=== PATIENT | female | born 1945 | race Caucasian/White ===

== ENCOUNTER 2021-12-14 11:07 | Outpatient (CLI) | payer MEDICARE, SELFPAY ==
--- NOTE | 2021-12-14 11:30 | CRLHL7_ITS ---
For Patients: As a result of the Century Cures Act, medical imaging exams and procedure reports are released immediately into your electronic medical record. You may view this report before your referring provider. If you have questions, please contact your health care provider. BILATERAL SCREENING MAMMOGRAM WITH COMPUTER-AIDED DETECTION AND TOMOSYNTHESIS TECHNIQUE: CC and MLO views were obtained. These mammographic images have been obtained using full-field digital technique. These mammographic images were interpreted with the benefit of computer-aided detection. Breast tomosynthesis was used in this interpretation. COMPARISON FILM: 11/14/20, 11/06/19, 10/15/18. FINDINGS: The breasts are heterogeneously dense, which may obscure small masses. IMPRESSION: There is no radiographic evidence for malignancy. ASSESSMENT: BI-RADS Category 1: Negative RECOMMENDATION: Routine screening mammogram in 1 year. A lay language report of this examination will be provided to the patient. TRENTON SRINIVASAN M.D. Diagnostic Radiologist [email or web address] Transcribed: 7:[address]/Dictated by: Trenton Srinivasan MD @ 12/14/2021 2:02:00 PM (Electronically Signed)
== END 2021-12-14 11:08 | disposition home or self-care (01) ==
LOC: MAMMO 11:08
PROVIDERS: PCP Internal Medicine; Visit Provider Internal Medicine
DX: Z12.31 Encounter for screening mammogram for malignant neoplasm of breast (principal)
CPT/HCPCS: 77063; 77067

== ENCOUNTER 2022-05-02 09:20 | Outpatient (CLI) | payer MEDICARE, SELFPAY | END 2022-05-02 09:21 | disposition home or self-care (01) | LOC: AMB 16:56 | PROVIDERS: PCP Internal Medicine; Visit Provider Family Medicine | DX: R53.1 Weakness (principal) | CPT/HCPCS: A0998 ==

== ENCOUNTER 2023-06-06 15:05 | Outpatient (CLI) | payer MEDICARE, SELFPAY ==
--- OUTSIDE RECORDS SUMMARY | 2023-06-06 15:14 | XMS_ITS | Clinical Summary ---
Author Name Unknown Organization [facility] Address [place], [place] [address] Care Team Providers Care Telemetry Monitor Name Role Phone Echo Burogs MD Primary Care Provider [phone]- [phone] Allergies No known active allergies Medications Medication Sig Dispensed Refills Start Date End Date Status alendronate (FOSAMAX) 70 mg tablet Take 1 tablet by mouth once a week in the morning. Take on empty stomach with full glass of water. Do not lie down for 1 hr. 0 10/12/2016 Active SUMAtriptan (IMITREX) 50 mg tablet Take 1 tablet by mouth 2 times daily if needed for Migraine. Give at minimum 2hrs apart. Max Dose: 200mg per 24hrs. 0 10/12/2016 Active aspirin (ECOTRIN) 81 mg enteric coated tablet Take 1 tablet by mouth once daily with a meal. 0 10/12/2016 Active multivitamin (MULTIPLE VITAMINS) tablet Take 1 tablet by mouth once daily. 0 10/12/2016 Active Social History Tobacco Use Types Packs/Day Years Used Date Smoking Tobacco: Never Assessed Sex and Gender Information Value Date Recorded Sex Assigned at Not on file Gender Identity Not on file Sexual Orientation Not on file Last Filed Vital Signs Vital Sign Reading Time Taken Comments Blood Pressure 121/75 10/12/2016 2:51 PM CDT Pulse 71 10/12/2016 2:51 PM CDT Temperature - - Respiratory Rate - - Oxygen Saturation 96% 10/12/2016 2:51 PM CDT Inhaled Oxygen Concentration - - Weight 74.1 kg (163 lb 6.4 oz) 10/12/2016 2:51 P M CDT Height - - Body Mass Index - - Plan of Treatment Health Maintenance Due Date Last Done Comments Tdap 1955 Depression screening for age 12+ 1956 BMI (ht and wt on same day) for age 18+ 1962 Hepatitis C screening for age 18-79 1962 Tetanus booster 1964 Zoster (shingles) series for age 50+ (1 of 2) 1994 DEXA/DXA scan for age 65+ 2009 Pneumococcal series for age 65+ (1 of 1 - PCV) 2009 COVID-19 vaccine series (3 - 2022-24 season) 2022 07/05/2020, 06/14/2020 Influenza for age 65+ 12/31/2022 Care Teams Telemetry Monitor Relationship Specialty Start Date End Date Echo Burgos MD [address] [place] [address] PCP - General Internal Medicine 09/30/17
== END 2023-06-06 15:06 | disposition home or self-care (01) ==
PROVIDERS: PCP Internal Medicine; Visit Provider Internal Medicine
DX: G31.84 Mild cognitive impairment of uncertain or unknown etiology (principal); Z13.228 Encounter for screening for other metabolic disorders; Z13.29 Encounter for screening for other suspected endocrine disorder; Z13.21 Encounter for screening for nutritional disorder
CPT/HCPCS: 80053; 82306; 82607; 84443

== ENCOUNTER 2023-07-06 12:12 | Outpatient (CLI) | payer MEDICARE, SELFPAY ==
--- NOTE | 2023-07-06 13:00 | MR_ITS ---
Patient: KP ESPINOZA Facility:?[facility] Patient ID:?[id number] Site Patient ID:?[id number]. Site :?[id number] Study:?MRI-Head W/O-07/06/2023 1:33:16 PM Ordering Physician:VIVIAN SIMENTAL Final Report: Indication: Mild cognitive impairment. Technique: Multiplanar, multisequence MRI of the brain was performed without intravenous contrast. Comparison: None relevant available. Findings: Moderate thinning of the corpus callosum. Partially empty sella morphology. Mild degenerative change visualized upper cervical spine. There are few foci of restricted diffusion identified within the right posterior frontal, parietal and temporal lobes, measuring up to 3 mm. The ventricles are proportionate to the cerebral sulci. The 4th ventricle appears midline. The basal cisterns appear patent. No abnormal extra-axial fluid collection identified. Moderate parenchymal volume loss. Moderate T2 FLAIR hyperintense foci within the subcortical and periventricular white matter, favored to represent chronic ischemic microvascular disease. There is no intracranial mass, abnormal mass-effect or midline shift identified. Major intracranial vascular flow voids appear grossly intact. Thinning of the ocular lenses. Impression: 1. Few small scattered foci of acute/subacute infarcts within the right posterior frontal, parietal and temporal lobes. 2. Moderate chronic ischemic microvascular disease. Dictated by Emmanuel Garcia MD @ 07/06/2023 4:18:00 PM Signed by:?Emmanuel Garcia MD @07/06/2023 4:18:00 PM (Electronic Signature)
== END 2023-07-06 12:13 | disposition home or self-care (01) ==
LOC: MRI 12:13
PROVIDERS: PCP Internal Medicine; Visit Provider Internal Medicine
DX: G31.84 Mild cognitive impairment of uncertain or unknown etiology (principal); I67.82 Cerebral ischemia
CPT/HCPCS: 70551

== ENCOUNTER 2023-07-21 10:48 | Outpatient (CLI) | payer MEDICARE, SELFPAY | END 2023-07-21 10:49 | disposition home or self-care (01) | LOC: NFLDREF 07-22 06:16 | PROVIDERS: PCP Internal Medicine; Referring Provider Internal Medicine; Visit Provider Nurse Practitioner Family | DX: N30.00 Acute cystitis without hematuria (principal); B96.1 Klebsiella pneumoniae [K. pneumoniae] as the cause of diseases classified elsewhere | CPT/HCPCS: 87086; 87186 ==

== ENCOUNTER 2023-08-23 13:45 | Outpatient (RCR) | payer MEDICARE, SELFPAY ==
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
--- NOTE | 2023-08-03 07:39 | PT.OPEX ---
PT [place] Outpatient Eval PT [facility] Outpatient Eval Start: 08/02/23 13:47 Freq: Status: Active Protocol: Document 08/02/23 13:47 AMS (Rec: 08/02/23 17:03 AMS [id number]) E-signed By Siri Arreola PT Physical Therapy Outpatient Evaluation Insurance Information Recert Due Date 10/26/23 Insurance Name Medicare B Medical Diagnosis Gait imbalance Treating Diagnosis Unsteadiness on feet Muscle weakness Difficulty in walking Gait imbalance Referring MD Echo Burgos Subjective Subjective Samreen Hernandez is a 78-year-old female who presents to outpatient physical therapy for evaluation in setting of gait imbalance. She presents with her daughter, Jose. She states her gait/balance has been gradually getting worse over the last few years. Some days, she feels really good and doesn't use any AD (wall surfs in her home). Some days, she feels more unsteady and uses 2WW or cane. She states she has signed up for a year- long personal training at the [facility] to improve her physical fitness. Functional mobility/Activities of Daily Living: Modified independent with all mobility. Min A with some IADLs (has cleaning person come 1x/week). Does laundry/other IADLs on her own (daughter checks in). Equipment used: Mostly uses her SEC for all mobility, uses 2WW intermittently (1x/day when she needs to carry objects). Furniture/wall surfs at home and will sometimes use no AD in the house. Home Setup: [facility]. Able to live on the main level. Has grab bars in the shower and shower chair (doesn't like to use this). Has 1 flight of stairs to basement with two railings. Doesn't have to go down here much, but would like to be able to. Takes the stairs one at a time. Receives help from: Daughter, lives close by, comes by 2x/ week. Falls: None in last 12 months Concerned about balance: No. Afraid of falling: No. Daughter: depends on the day Exercise/Activity Level: Walks back and forth in the house with daily activities - no formal exercise. She just joined the [facility] personal training program; isn 't sure when this starts. Pain: None Previous Treatments: None. Had physical therapy 1-5 years ago; isn't sure for what. She is currently doing OT for mild cognitive impairment. Goals: to walk better Pain Comments 5/10 at worst in both knees - standing longer periods 0/10 at rest Current Work Status Retired Occupation Retired Preferred Name Samreen Precautions Treatment Precautions/Contraindications Osteoporosis, osteoarthritis of both knees, mitral regurgitation, mild cognitive impairment Therapy Limitations/Systems Review Cognition Objective Other/Pertinent Objective Vitals: Not formally assessed as not indicated. Mental status: Awake and alert but did not formally assess orientation. Able to follow two-step commands. Cranial nerves: Did not formally assess but appears globally intact based on visual observation. Posture: Mildly increased forward flexion/thoracic kyphosis. Improved with 2WW. Gait/Stair: Ambulates with use of SEC in left hand with step -through pattern. Decreased kishan, decreased foot clearance bilaterally, decreased stance time on R LE, moderate postural sway/ lateral deviations. Intermittent use of stratton for balance. Stair: step-to pattern ascent and descent with 2 railings Transfers: Independent. Requires several attempts to rise from standard height chair due to poor anterior weight shift. Balance: Narrow stance: 30 sec Tandem stance: 3 sec R, 6 sec L Single leg balance: unable Range of Motion: Appears grossly within normal limits for upper and lower extremities. Strength: Upper extremities: Shoulder flexion: R 4/5 L 4/5 Shoulder abduction: R 4/5 L 4/ 5 Elbow flexion: R 4/5 L 4/5 Elbow extension: R 4/5 L 4/5 Flying I Instructor strength: decreased bilaterally Lower extremities: Hip flexion: R 4-/5 L 4/5 Knee extension: R 4+/5 L 4+/5 Knee flexion: R 4/5 L 4-/5 Ankle dorsiflexion: R 5/5 L 5/ 5 Sensory: Did not formally assess. Functional Test Performed & Score 30 sec STS: 5 reps (age- matched norm: 13 reps) 5x STS: 29.5 sec TUG with SEC: 15.5 sec. With 2WW: 22 sec. (>13 sec = increased fall risk) Gait speed: 0.6 m/s (less than 0.8 m/s = increased fall risk) Assessment Assessment/Impression Pt is a 78 -year-old female? who presents with concerns of gait imbalance for balance assessment and fall prevention training. PMHx significant for osteoporosis, bilateral knee osteoarthritis, mitral regurgitation, and mild cognitive impairment ( attending occupational therapy ). Pt lives alone and utilizes SEC most of the time with mobility, although will also wall surf and go without AD in the home; also sometimes uses 2WW. No recent falls.?On exam, patient also demonstrates notable objective findings including range of motion within normal limits for upper and lower extremities, impaired static and dynamic balance, impaired/ unsteady gait, and significantly decreased functional upper and lower extremity strength, leading to difficulties with walking in a straight line, getting out of low chairs, walking longer distances, picking up objects from the floor, turning efficiently, and moving around the home safely. Decreased foot clearance noted bilaterally with shuffling gait as well as lateral deviations with ambulation. Pt 's gait speed, 30 sec STS, and TUG results all place her at an increased risk for falls. Significantly improved upright posture, foot clearance, safety, and ability to ambulate in a straight path with use of 2WW versus SEC, although no improvement in kishan. Recommended patient utilize for all mobility to decrease fall risk. Patient is appropriate for skilled physical therapy services to address the above deficits.?Pt was agreeable with plan of care and goals established. Primary Functional Limitations walking in a straight line, getting out of low chairs, walking longer distances, picking up objects from the floor, turning efficiently, and moving around the home safely Plan of Care Rehabilitation Potential Good Physical Therapy Goals Patient will be modified independent with HEP and self- management of symptoms with reminders from daughter. Patient will improve TUG score from 15.5 seconds to 12 or less to demonstrate clinically significant improvements in balance/stability. Patient will improve 5x STS from 29.5 sec to 20 sec or less (MDC 4 seconds) to demonstrate improvement in LE functional strength. Patient will improve ABC Confidence Scale by 20% for meaningful improvement in patient-perceived balance. Coordination/Communication With Referral Source Treatment Plan/Direct Interventions Gait Training,Joint Mobilization,Neuromuscular Re- ed,Self-Care/Home Management, Therapeutic Activities, Therapeutic Exercises Frequency/Duration 1x/week for 10-12 sessions Patient Will Be Discharged From Therapy Completion of LTG(s), Independent w/HEP, Independently Progressing Evaluation Billing Untimed Code Treatment Minutes 25 Complexity Low Certification Information Initial Certification Date 08/02/23 Ending Certification Date 10/26/23 Provider Signature Shows Agreement With POC & Medical Necessity Physician Signature & Date Requested Please Sign/Date Here Physician Comment/Change : Physician NPI Number #
== END 2023-09-28 16:17 | disposition home or self-care (01) ==
PROVIDERS: PCP Internal Medicine; Visit Provider Internal Medicine
DX: G31.84 Mild cognitive impairment of uncertain or unknown etiology (principal); R26.9 Unspecified abnormalities of gait and mobility; Z51.89 Encounter for other specified aftercare
CPT/HCPCS: 97110; 97112; 97116; 97161; 97165; 97535

== ENCOUNTER 2023-08-31 13:31 | Outpatient (CLI) | payer MEDICARE, SELFPAY ==
--- OUTSIDE RECORDS SUMMARY | 2023-09-02 05:45 | XMS_ITS | Clinical Summary ---
Author Name Unknown Organization [facility] Address [place], [place] [address] Care Team Providers Care Hatchery Laborer Name Role Phone Echo Burgos MD Primary Care Provider +1- [phone] Allergies No known active allergies Medications Medication [...] 2022 07/05/2020, 06/14/2020 Influenza for age 65+ 01/01/2024 Care Teams Hatchery Laborer Relationship Specialty Start Date End Date Echo Burgos MD [address] [place] [address] PCP - General Internal Medicine 09/30/17
--- OUTSIDE RECORDS SUMMARY | 2023-09-02 05:45 | XMS_ITS | Data Portability ---
Author Name Unknown Address [address] [place] [address] Phone [phone] Organization [place] [facility], [employer] Address [address] [place] [address] Assessment Encounter Date Assessment Date Assessment LastModified by Organization Details LastModified Time 06/08/2022 06/08/2022 We discussed foot care for pronation and hallux valgus b/l. Pt. wished to proceed with discussion of orthotics and Subiomed for knees before considering surgical treatment. Not available 07/02/2022 18:45:37 06/30/2022 06/30/2022 We discussed foot care for pronation and hallux valgus b/l. Pt. wished to proceed with discussion of Subiomed for knees before she considers knee surgery. Will follow to evaluate orthoic progress and trial subiomed next visit. [email or web address] Not available 08/04/2022 20:56:24 07/28/2022 07/28/2022 We discussed foot care for pronation and hallux valgus b/l. Pt. wished to proceed with orthotics for knees before considering surgical treatment. [email or web address] Not available 07/28/2022 16:30:25 Plan of Treatment Reminders Order Date Submit Date Provider Last Modified By Organization Details Last Modified Time Details Appointments None record ed. Lab None record ed. Referral None record ed. Procedures None record ed. Surgeries None record ed. Imaging None record ed. Medication Orders None record ed. Patient TargetsNo targets recorded. Patient InstructionsNo instructions recorded. Reason for Referral None Reported. Problems Name Status Onset Date Resolution Date Notes Provider Name and Address Organization Details Recorded Time Hammer toe Active 02/01/20 20 Hammer toe; Original Code: 317234306 Original Codesystem : SNOMED CT Classif ication: Medical Co nfirmation Status: Confirmed Not Available [facility] 07/06/2022 09:06:25 Callosity Active 02/01/20 20 Callosity; Original Code: 950327486 Original Codesystem : SNOMED CT Classif ication: Medical Co nfirmation Status: Confirmed Not Available [facility] 07/06/2022 09:06:25 Pain of knee region Active 03/17/20 21 Pain of knee region; Original Code: 1681787780 Original Codesystem : SNOMED CT Classif ication: Medical Co nfirmation Status: Confirmed Not Available [facility] 07/06/2022 09:06:25 Acquired hallux valgus Active 02/01/20 20 Acquired hallux valgus; Original Code: 356275834 Original Codesystem : SNOMED CT Classif ication: Medical Co nfirmation Status: Confirmed Acquired hallux valgus; Original Code: 022591150 Original Codesystem : SNOMED CT Classif ication: Medical Co nfirmation Status: Confirmed ; Start Date : 01/08/2020 Not Available [facility] 07/06/2022 09:06:25 Problem Notes None recorded. Medical Equipment None Reported. Allergies No known drug allergies Medications Name Sig Start Date Stop Date Status Note LastModified by Organization Details LastModified Time alendronate 70 mg tablet TAKE 1 TABLET BY MOUTH EVERY WEEK active Not Available Not Available No t Available sumatriptan 50 mg tablet TAKE 1 TABLET BY MOUTH DAILY NEEDED active Not Available Not Available No t Available Vitals Date Recorded Body height Body mass index (BMI) Body weight Provider Name and Address Organization Details Last Updated DateTime 06/08/2022 167.64 cm 25.8 kg/m2 90641.78 g [facility] 06/08/2022 15:08:56 Social History None recorded. Functional Status None recorded. Mental Status None recorded. Family History Nothing Reported. Medical History No medical history recorded. Gynecological HistoryNo gynecological history recorded. Obstetrics History GPAL:G 0 P 0 0 0 0 Past Encounters Encounter ID Performer Location Encounter Start Date Encounter Closed Date Diagnosis/Indication Diagnosis SNOMED-CT Code [id number] Cody Grimaldo DPM [place] Office [address] [place] [id number] 06/08/2022 15:06:04 06/09/2022 10:20:26 Pain in left foot 31742653328535 7 Pain in right foot 73098 258791648 7 Hallux rhoda alphonso AND bunion 247760791 Hammer toe 184353642 Pain of ri ght knee joint 97798747558520 0 Pain of le ft knee joint 43125139320150 7 [id number] LA[address] Jose [facility] Office [address] [place] [address] 07/16/2022 10:04:03 08/05/2022 10:05:00 Pain in left foot 93178619107225 7 Pain in right foot 60173 516387020 7 Hallux rhoda alphonso AND bunion 507967869 Hammer toe 114860458 Pain of ri ght knee joint 04158411054735 0 Pain of le ft knee joint 51750855550681 7 [id number] LA[address] Jose Main Office [address] [place] [address] 07/28/2022 15:14:36 07/28/2022 16:43:29 Pain in left foot 76715256673265 7 Pain in right foot 37316 264699771 7 Hallux rhoda alphonso AND bunion 273437887 Hammer toe 228401750 Pain of ri ght knee joint 71151820179263 0 Pain of le ft knee joint 44439345113858 7 Health Concerns Section Related Observation LastModified by Organization Detai ls LastModified Time None Recorded Concern Status LastModified by Organization Details LastModified Time None Recorded Advance Directives Directive None Recorded Payers Encounter Date Sequence Insurance Name Policy Number Policy [place] Covered Member ID [place] Member ID Guarantor Name 07/28/2022 1 [employer] - CHOICE (POS II) [id number] Samreen Hernandez [id number] Samreen Hernandez 06/30/2022 1 [employer] - CHOICE (POS II) [id number] Samreen Hernandez [id number] 2 Samreen Hernandez 06/30/2022 1 [place] [employer] [employer] Samreen Hernandez [id number] Samreen Hernandez 06/08/2022 1 [employer] - CHOICE (POS II) [id number] Samreen Hernandez [id number] Samreen Hernandez Notes Date Note Type Note Provider Name and Address Organization Details Recorded Time 06/08/2022 text/html HPI Notes: Increasing pain in shoes with activity related to bunions . Prior shoe changes and conservative care. Has used orthotics for some time. Cody Grimaldo DPM [address] [place], [address], [facility] 07/02/2022 18:46:14 06/30/2022 text/html HPI Notes: Increasing pain in shoes with activity related to bunions . Prior shoe changes and conservative care. Orthotic modifications have failed to significantly im prove symptoms. Continued knee pain b/l. Cody Grimaldo DPM [address] [place], [address], [facility] 08/04/2022 20:56:39 07/28/2022 text/html HPI Notes: Increasing pain in shoes with activity related to bunions . Prior shoe changes and conservative care. Has used orthotics for some time. Cody Grimaldo DPM [address] [place], [address], [facility] 07/28/2022 16:32:09 OBGyn Episode No OBEpisode recorded.
== END 2023-08-31 13:32 | disposition home or self-care (01) ==
LOC: NFLDREF 09-02 05:44
PROVIDERS: PCP Internal Medicine; Referring Provider Internal Medicine; Visit Provider Internal Medicine
DX: M85.80 Other specified disorders of bone density and structure, unspecified site (principal); E53.8 Deficiency of other specified B group vitamins; I67.9 Cerebrovascular disease, unspecified; Z13.220 Encounter for screening for lipoid disorders
CPT/HCPCS: 80061; 82306; 82607

== ENCOUNTER 2023-09-06 16:47 | Outpatient (CLI) | payer MEDICARE, SELFPAY ==
--- OUTSIDE RECORDS SUMMARY | 2023-09-08 07:45 | XMS_ITS | Clinical Summary ---
Author Name Unknown Organization [facility] Address [place], [place] [address] Care Team Providers Care Cyber Systems Operations Specialist Name Role Phone Echo Burgos MD Primary Care Provider [phone] Allergies No known active allergies Medications Medication [...] by mouth once daily. 0 10/12/2016 Active Encounters Date Type Department Care Team Description 09/07/2023 11:00 AM CDT Ancillary Procedure [facility] [address] [place] [address] Arrived 09/07/2023 Travel from Last 3 Months Social History Tobacco Use Types Packs/Day Years [...] PCV) 2009 COVID-19 vaccine series (3 - 2022- season) 2022 07/05/2020, 06/14/2020 Influenza for age 65+ 01/01/2024 Procedures Procedure Name Priority Date/Time Associated Diagnosis Comments ECHO TTE COMPLETE WO CONTRAST Routine 09/07/2023 11:44 AM CDT NSTEMI (non-ST elevated myocardial infarction) (HC) from Last 3 Months Results * ECHO TTE COMPLETE WO CONTRAST (09/07/2023 11:44 AM CDT) AORTIC VALVE MEAN PG 9 mmHg EJECTION FRACTION 56 % PEAK TR VELOCITY 2.6 m/s LVEDD 3.9 cm EJECTION FRACTION 55 - 60% Anatomical Region Laterality Modality Ultrasound 09/07/2023 11:0 4 AM CDT Narrative 09/07/2023 12:16 PM CDT ECHOCARDIOGRAM SAMREEN HERNANDEZ ?Accession#: ?? [id number] : ?1945 78 years Study Date: ?? 09/07/2023 11:04:06 AM Gender: F ? BP: ? 157/69 mmHg Height: 168.00 cm ? BSA: ?1.73 m? ? ? Weight: 64.00 kg ?Tech: ? MSR ?Referring MD: GREGG JUNIOR Site: ? [facility] Reading Location: Mobile [facility] Patient Location: Inpatient. Procedure: 2D, Color Doppler and Spectral Doppler. Indication for study: NSTEMI (non-ST elevated myocardial infarction) Cardiac Rhythm: Regular.Study quality: Final Impressions: 1. LVEF estimate 55-60%. Normal LV size and wall thickness. 2. Normal RV size and global systolic function. 3. No significant valvular abnormalities. 4. Normal PASP and RAP estimates. 5. Color Doppler suggests a possible PFO. Chamber Sizes and Function Left atrial size is normal. Right ventricular cavity size is normal, global systolic RV function is normal. The right atrium is normal. The pulmonary artery is of normal size and origin. The sinus of Valsalva is normal sized. The ascending aorta is normal sized. Valves, RV Pressures and Diastolic Function The aortic valve is trileaflet and sclerotic, no stenosis and no regurgitation. The mitral valve is normal in structure, no mitral regurgitation. Indeterminate pattern of LV diastolic filling. The tricuspid valve is normal in structure. Tricuspid regurgitation is mild regurgitation. The tricuspid regurgitant velocity is 2.6 m/s, the estimated right ventricular systolic pressure is 28 mmHg plus right atrial pressure. There is normal estimated pulmonary pressure by tricuspid regurgitation velocity and right atrial pressure. The pulmonic valve is not well visualized. Trace pulmonary regurgitation. Masses, Effusion, Shunts There is no pericardial effusion. The inferior vena cava is normal sized, respiratory size variation greater than 50%. Color flow Doppler imaging suggests a possible PFO. MEASUREMENTS AND CALCULATIONS 2-D Measurements and LV Function: LVID (d) 3.9 cm LV FS% (2D) ?? 58 % LVID (s) 1.6 cm LVOT diameter 2.0 cm IVS (d) ??0.9 cm HR ?64 bpm LVPW (d) 0.9 cm LA Vol index ??25 ml/m2 Ao Sinus 3.2 cm RV Max 4C (d) 3.6 cm Asc Ao ?? 3.5 cm Diastology: Mitral ?Tissue Doppler E Peak 0.6 m/s ??e', Septum ? 0.05 m/s A Peak 0.8 m/s ??e', Lateral ?0.07 m/s E/A ?0.8 ?E/e' Average ?? 10.46 DT ? 216 msec Aortic Valve: Vmax ? 2.0 m/s ??GRIS (V) ?? 1.98 cm? ? ? VTI ?0.40 m ?? GRIS (I) ?? 1.90 cm? ? ? LVOT V max 1.3 m/s ??Max PG ?17 mmHg LVOT VTI ?? 0.24 m ?? Mean PG ?? 9 mmHg SV ? 76 ml ?Dim Index 0.61 SV index ?? 44 ml/m? ? ? CO ?4.9 l/min ?CI ?2.8 l/min/m? ? ? Mitral Valve: MVA ?3.5 cm? ? ? MV P 1/2 63 msec Tricuspid Valve and estimated PA pressures: TR Vmax 2.6 m/s TAPSE 2.2 cm TR maxG 28 mmHg Pulmonic Valve: PIEDV 0.9 m/s . This study was interpreted by an [facility] accredited facility. CC: HIM (med records) [facility], Med/Surg - IP [facility]. ??Final ?? Procedure Note Kayden Sinclair MD - 09/07/2023 ECHOCARDIOGRAM SAMREEN HERNANDEZ : 1945 78 years Study Date: 09/07/2023 11:04:06 AM Gender: F BP: 157/69 mmHg Height: 168.00 cm BSA: 1.73 m? ? ? Weight: 64.00 kg Tech: GERMAN Referring MD: GREGG JUNIOR Site: [facility] Reading Location: [facility] Patient Location: Inpatient. Procedure: 2D, Color Doppler and Spectral Doppler. Indication for study: NSTEMI (non-ST elevated myocardial infarction) Cardiac Rhythm: Regular.Study quality: Final Impressions: 1. LVEF estimate 55-60%. Normal LV size and wall thickness. 2. Normal RV size and global systolic function. 3. No significant valvular abnormalities. 4. Normal PASP and RAP estimates. 5. Color Doppler suggests a possible PFO. Chamber Sizes and Function Left atrial size is normal. Right ventricular cavity size is normal,global systolic RV function is normal. The right atrium is normal. Thepulmonary artery is of normal size and origin. The sinus of Valsalva isnormal sized. The ascending aorta is normal sized. Valves, RV Pressures and Diastolic Function The aortic valve is trileaflet and sclerotic, no stenosis and noregurgitation. The mitral valve is normal in structure, no mitralregurgitation. Indeterminate pattern of LV diastolic filling. Thetricuspid valve is normal in structure. Tricuspid regurgitation is mildregurgitation. The tricuspid regurgitant velocity is 2.6 m/s, theestimated right ventricular systolic pressure is 28 mmHg plus right atrialpressure. There is normal estimated pulmonary pressure by tricuspidregurgitation velocity and right atrial pressure. The pulmonic valve isnot well visualized. Trace pulmonary regurgitation. Masses, Effusion, Shunts There is no pericardial effusion. The inferior vena cava is normal sized,respiratory size variation greater than 50%. Color flow Doppler imagingsuggests a possible PFO. MEASUREMENTS AND CALCULATIONS 2-D Measurements and LV Function: LVID (d) 3.9 cm LV FS% (2D) 58 % LVID (s) 1.6 cm LVOT diameter 2.0 cm IVS (d) 0.9 cm HR 64 bpm LVPW (d) 0.9 cm LA Vol index 25 ml/m2 Ao Sinus 3.2 cm RV Max 4C (d) 3.6 cm Asc Ao 3.5 cm Diastology: Mitral Tissue Doppler E Peak 0.6 m/s e', Septum 0.05 m/s A Peak 0.8 m/s e', Lateral 0.07 m/s E/A 0.8 E/e' Average 10.46 DT 216 msec Aortic Valve: Vmax 2.0 m/s GRIS (V) 1.98 cm? ? ? VTI 0.40 m GRIS (I) 1.90 cm? ? ? LVOT V max 1.3 m/s Max PG 17 mmHg LVOT VTI 0.24 m Mean PG 9 mmHg SV 76 ml Dim Index 0.61 SV index 44 ml/m? ? ? CO 4.9 l/min CI 2.8 l/min/m? ? ? Mitral Valve: MVA 3.5 cm? ? ? MV P 1/2 63 msec Tricuspid Valve and estimated PA pressures: TR Vmax 2.6 m/s TAPSE 2.2 cm TR maxG 28 mmHg Pulmonic Valve: PIEDV 0.9 m/s . This study was interpreted by an [facility] accredited facility. CC: HIM (med records) [facility], Med/Surg - IP [facility]. Final Gregg Jersey Junior MD ECHO ORD from Last 3 Months Care Teams Cyber Systems Operations Specialist Relationship Specialty Start Date End Date Echo Burgos MD [address] [place] [address] PCP - General Internal Medicine 09/30/17
--- OUTSIDE RECORDS SUMMARY | 2023-09-08 07:45 | XMS_ITS | Data Portability ---
Author Name Unknown Address [address] [place] [address] Phone [phone] Organization [place] [facility] [employer] Address [address] [place] [address] Assessment Encounter Date Assessment Date Assessment LastModified [...] orthoic progress and trial subiomed next visit. [email or web address] Not available 08/04/2022 20:56:24 07/28/2022 07/28/2022 We discussed foot care for pronation and hallux valgus b/l. Pt. wished to proceed with orthotics for knees before considering surgical treatment. [email or web address] Not available 07/28/2022 16:30:25 Plan of Treatment [...] Active 02/01/20 20 Hammer toe; Original Code: [id number] Original Codesystem : SNOMED CT Classif ication: Medical Co nfirmation Status: Confirmed Not Available [facility] 07/06/2022 09:06:25 Callosity Active 02/01/20 20 Callosity; Original Code: [id number] Original Codesystem : SNOMED CT Classif ication: Medical Co nfirmation Status: Confirmed Not Available [facility] 07/06/2022 09:06:25 Pain of knee region Active 03/17/20 21 Pain of knee region; Original Code: [id number] Original Codesystem : SNOMED CT Classif ication: Medical Co nfirmation Status: Confirmed Not Available [facility] 07/06/2022 09:06:25 Acquired hallux valgus Active 02/01/20 20 Acquired hallux valgus; Original Code: [id number] Original Codesystem : SNOMED CT Classif ication: Medical Co nfirmation Status: Confirmed Acquired hallux valgus; Original Code: [id number] Original Codesystem : SNOMED CT Classif ication: Medical Co nfirmation Status: Confirmed ; Start Date : 01/08/2020 Not Available [facility] 07/06/2022 09:06:25 Problem Notes None recorded. Medical [...] Updated DateTime 06/08/2022 167.64 cm 25.8 kg/m2 71661.78 g [facility] [...] Diagnosis SNOMED-CT Code 2745 Cody Grimaldo DPM [place] [facility] [address] [place] [id number] 06/08/2022 15:06:04 06/09/2022 10:20:26 Pain in left foot 14086624657614 7 Pain in right foot 12703 [id number] 7 Hallux rhoda alphonso AND bunion [id number] Hammer toe 836708165 Pain of ri ght knee joint 37629413681485 0 Pain of le ft knee joint [id number] 7 [address] Jose Main [address] [place] [address] 07/16/2022 10:04:03 08/05/2022 10:05:00 Pain in left foot 43641025648045 7 Pain in right foot 51523 [id number] 7 Hallux rhoda alphonso AND bunion [id number] Hammer toe 911770065 Pain of ri ght knee joint 97087663140431 0 Pain of le ft knee joint 16228865352399 7 [address] Jose Main Office [address] [place] [address] 07/28/2022 15:14:36 07/28/2022 16:43:29 Pain in left foot 33530740167878 7 Pain in right foot 71285 [id number] 7 Hallux rhoda alphonso AND bunion [id number] Hammer toe 300830507 Pain of ri ght knee joint 27201744988210 0 Pain of le ft knee joint 14171493131871 7 Health Concerns Section Related Observation LastModified by Organization Detai ls LastModified Time None Recorded Concern Status LastModified by Organization Details LastModified Time None Recorded Advance Directives Directive None Recorded Payers Encounter Date Sequence Insurance Name Policy Number Policy [place] Covered Member ID [place] Member ID Guarantor Name 07/28/2022 1 [employer] - CHOICE (POS II) [id number] Samreen Hernandez [id number] Samreen Hernandez 06/30/2022 1 [employer] - CHOICE (POS II) [id number] Samreen Hernandez [id number] Samreen Hernandez 06/30/2022 1 MED[place]: [employer] Samreen Hernandez [id number] Samreen Hernandez 06/08/2022 1 [employer] - CHOICE (POS II) [id number] Samreen Hernandez [id number] Samreen Hernandez Notes Date Note Type Note Provider Name and Address Organization Details Recorded Time 06/08/2022 text/html HPI Notes: Increasing pain in shoes with activity related to bunions . Prior shoe changes and conservative care. Has used orthotics for some time. Cody Grimaldo DPM [address] [place], [address], [facility] 07/02/2022 18:46:14 06/30/2022 text/html HPI Notes: Increasing pain in shoes with activity related to bunions . Prior shoe changes and conservative care. Orthotic modifications have failed to significantly im prove symptoms. Continued knee pain b/l. Cody Grimaldo DPM [address] [place], [address], [facility] 08/04/2022 20:56:39 07/28/2022 text/html HPI Notes: Increasing pain in shoes with activity related to bunions . Prior shoe changes and conservative care. Has used orthotics for some time. Cody Grimaldo DPM [address] [place], [address], [facility] 07/28/2022 16:32:09 OBGyn Episode No OBEpisode recorded.
== END 2023-09-06 16:48 | disposition home or self-care (01) ==
LOC: AMB 09-08 07:43
PROVIDERS: PCP Internal Medicine; Visit Provider Emergency Medicine Emergency Medical Services
DX: R53.1 Weakness (principal)
CPT/HCPCS: A0425; A0427

== ENCOUNTER 2023-09-06 17:07 | Inpatient (IN) | payer MEDICARE, SELFPAY ==
[2023-09-06] VITALS (17 sets, daily range): BP systolic 100–151; BP diastolic 48–88; PULSE 67–106; RESP 18–20; TEMP 36.3–37.3; O2SAT 94–98
--- NOTE | 2023-09-06 17:09 | CT_ITS ---
Patient: KP ESPINOZA Facility:?[facility] Patient ID:?[id number] Site Patient ID:?[id number]. Site :?1945 Study:?CT-Head Angio Angio CTA HEAD AND NECK-09/06/2023 5:31:33 PM Ordering Physician:SYDNEE Final Report: INDICATION: Acute stroke, fall, weakness. TECHNIQUE: CTA head with contrast bolus tracking, 3D angiographic rendering using maximum intensity projection (MIP) and images permanently archived. FINDINGS: There is scattered intracranial atherosclerotic disease. There is normal opacification of the intracranial vasculature. There is no large vessel occlusion. No aneurysm is identified. IMPRESSION: No large vessel occlusion or significant intracranial stenosis. Please note that all CT scans at this facility use dose modulation, iterative reconstruction, and/or weight-based dosing when appropriate to reduce radiation dose to as low as reasonably achievable. Dictated by Qasim Manuel MD @ 09/07/2023 7:39:52 AM Signed by:?Qasim Manuel MD @09/07/2023 7:39:52 AM (Electronic Signature)
--- NOTE | 2023-09-06 17:09 | CT_ITS ---
Patient: KP ESPINOZA Facility:?[facility] Patient ID:?[id number] Site Patient ID:?[id number]. Site :?1944 Study:?CT-Neck Angio Angio CTA HEAD AND NECK-09/06/2023 5:32:54 PM Ordering Physician:SYDNEE Final Report: INDICATION: Acute stroke, fall, weakness. TECHNIQUE: CTA neck with contrast bolus tracking, 3D angiographic rendering using maximum intensity projection (MIP) and images permanently archived. FINDINGS: There is carotid atherosclerosis bilaterally. There is a severe stenosis of the proximal right ICA, 70% by NASCET. There is a moderate stenosis of the proximal left ICA, 50% by NASCET. There is no significant vertebral artery stenosis or dissection. The soft tissues of the neck are within normal limits. Degenerative changes are noted in the cervical spine. IMPRESSION: 1. 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 2. Moderate stenosis of the proximal left ICA, 50% by NASCET. Please note that all CT scans at this facility use dose modulation, iterative reconstruction, and/or weight-based dosing when appropriate to reduce radiation dose to as low as reasonably achievable. Dictated by Qasim Manuel MD @ 09/07/2023 7:43:54 AM Signed by:?Qasim Manuel MD @09/07/2023 7:43:54 AM (Electronic Signature)
--- NOTE | 2023-09-06 17:11 | CT_ITS ---
Patient: KP ESPINOZA Facility:?[facility] Patient ID:?[id number] Site Patient ID:?[id number]. Site :?1944 Study:?CT-Spine Cervical WO-09/06/2023 5:29:51 PM Ordering Physician:SYDNEE Final Report: INDICATION: Fall, weakness. TECHNIQUE: CT of the cervical spine was performed without intravenous contrast. COMPARISON: None. FINDINGS: Alignment: Normal. Vertebrae: Vertebral bodies and posterior elements are intact without acute fracture. There are multilevel degenerative changes. Osteopenia. Extra-vertebral soft tissues: Normal. Visualized brain: Normal. Additional comment: Moderate biapical pleural and parenchymal scarring and bronchiectasis. IMPRESSION: 1. No acute displaced fracture or malalignment of the cervical spine. 2. Partial visualization of moderate biapical pleural-parenchymal scarring and bronchiectasis, which is favored to represent a chronic pulmonary process. Consider comparison with outside examinations if available. Please note that all CT scans at this facility use dose modulation, iterative reconstruction, and/or weight-based dosing when appropriate to reduce radiation dose to as low as reasonably achievable. Dictated by Johann Liu MD @ 09/06/2023 6:02:34 PM Signed by:?Johann Liu MD @09/06/2023 6:02:34 PM (Electronic Signature)
--- NOTE | 2023-09-06 17:12 | CT_ITS ---
Patient: KP ESPINOZA Facility:?[facility] Patient ID:?[id number] Site Patient ID:?[id number]. Site :?1945 Study:?CT-Head WO-09/06/2023 5:28:59 PM Ordering Physician:SYDNEE Final Report: INDICATION: FALL, WEAKNESS TECHNIQUE: CT of the head was performed without IV contrast. COMPARISON: 09/05/2023. FINDINGS: Parenchyma: No acute hemorrhage, infarction, or mass. Moderate confluent periventricular white matter hypoattenuation is nonspecific and is favored to represent chronic small vessel ischemic disease. Ventricles and extra-axial spaces: Redemonstration of enlarged bilateral lateral ventricles. Visualized paranasal sinuses: Clear. Mastoid air cells: Clear. Bones: No focal abnormality. Additional comment: Moderate to large right scalp hematoma. IMPRESSION: 1. No acute hemorrhage. 2. Redemonstration of enlarged bilateral lateral ventricles. Findings may be seen in the setting of normal pressure hydrocephalus. 3. Moderate to large right scalp hematoma. Please note that all CT scans at this facility use dose modulation, iterative reconstruction, and/or weight-based dosing when appropriate to reduce radiation dose to as low as reasonably achievable. Dictated by Johann Liu MD @ 09/06/2023 5:54:38 PM Signed by:?Johann Liu MD @09/06/2023 5:54:38 PM (Electronic Signature)
--- NOTE | 2023-09-06 17:12 | XR_ITS ---
Patient: KP ESPINOZA Facility:?[facility] Patient ID:?[id number] Site Patient ID:?[id number]. Site :?1945 Study:?XRay-Chest 1V-09/06/2023 5:44:02 PM Ordering Physician:SYDNEE Final Report: INDICATION: Fall. Weakness. COMPARISON: None available. TECHNIQUE: 1 view. FINDINGS: Medical Devices: Oxygen tubing overlies the left shoulder and neck. Lung Volumes: Adequate inspiration. No significant atelectasis. Lungs: Symmetrical biapical pleural capping and bilateral apical subpleural coarse reticular opacities consistent with pleural-parenchymal fibrosis. Pleura and Pleural spaces: No significant pleural effusion. No pneumothorax. Mediastinum: Normal cardiomediastinal silhouette. Bony Thorax and Soft Tissues: Elevated right hemidiaphragm. IMPRESSION: No imaging findings pertinent to the indication for the exam or significant unrelated findings. Incidental findings described in the body of the report. Dictated by Tavon Quiroga MD @ 09/06/2023 6:10:02 PM Signed by:?Tavon Quiroga MD @09/06/2023 6:10:02 PM (Electronic Signature)
--- NOTE | 2023-09-06 17:12 | XR_ITS ---
Patient: KP ESPINOZA Facility:?[facility] Patient ID:?[id number] Site Patient ID:?[id number]. Site :?1945 Study:?XRay-Pelvis (Bony) 1V-09/06/2023 5:44:45 PM Ordering Physician:SYDNEE Final Report: INDICATION: Fall. Weakness. TECHNIQUE: Pelvis one view. COMPARISON: None. FINDINGS: Mildly comminuted and displaced fractures of the right superior and inferior pubic ramus. No sacroiliac or pubic diastasis demonstrated. No definite additional fracture evident. Degenerative changes of the bilateral hips and visualized lumbar spine. Density consistent with retained contrast material in the bilateral distal ureters and urinary bladder. IMPRESSION: Fractures of the right superior and inferior pubic ramus. Dictated by Gustavo Connell MD @ 09/06/2023 6:12:38 PM Signed by:?Gustavo Connell MD @09/06/2023 6:12:38 PM (Electronic Signature)
--- NOTE | 2023-09-06 17:17 | ED.GENADULT ---
HPI - General Adult General Chief complaint: Neuro Symptoms/Altered Deficit Stated complaint: Fall Time Seen by Provider: 09/06/23 17:09 History of Present Illness HPI narrative: Patient is a 78 year white female with mild cognitive impairment, lives in her own home. Ambulance was called. Apparently she was found by family members down for an unknown period of time. Patient denies any pain at this time. She does not know how long she was down on the ground. She has had a workup including an MRI recently within the last couple of months that showed multiple foci of acute and subacute stroke. She describes that she is a DNR DNI patient, but I do not see that documented in her chart. She does have history of cerebrovascular disease as mention, mild cognitive impairment, mitral regurg, B12 deficiency, osteoporosis, migraine. Patient apparently has family involved in her care that visit her regularly. She denies any pain. Denies any specific weakness. Paramedics noted that she seemed to favor turning her head to the right. She was moving all extremities although did appear to have some preps left arm weakness. Again down for an unknown period of time. Brought in by medics. I have met her in the back hallway. Examined her in the ambulance and we mint and urgently to CT scan. At this point I think I will do a CT CTA as well as a CT scan of the neck, chest x-ray and pelvic x-ray. Will start IV and IV fluids. Cardiac monitoring, EKG, cardiac workup. Related Data Home Medications Medication Instructions Recorded Confirmed acetaminophen 650 mg 1,300 mg PO Q12H 12/08/22 08/04/23 tablet,extended release (Tylenol Arthritis Pain) Previous Rx's Medication Instructions Recorded aspirin 81 mg capsule 81 mg PO QDAY #90 caps 08/04/23 alendronate 70 mg tablet 70 mg PO QWEEK #12 tabs 09/01/23 Allergies Allergy/AdvReac Type Severity Reaction Status Date / Time No Known Drug Allergies Allergy Verified 08/04/23 13:15 Review of Systems Status of ROS: Reports: 6 or more systems reviewed and unremarkable except as noted in History and below Narrative: Patient reports she has had diarrhea today. [facility] Medical History (Updated 09/07/23 @ 07:11 by Millie Armstrong MD) Cerebrovascular accident ?I63.9 - Cerebral infarction, unspecified (ICD-10) Cerebrovascular disease ?I67.9 - Cerebrovascular disease, unspecified (ICD-10) Vitamin B12 deficiency without anemia ?E53.8 - Deficiency of other specified B group vitamins (ICD-10) Osteoarthritis of right knee ?M17.11 - Unilateral primary osteoarthritis, right knee (ICD-10) Osteoarthritis of left knee ?M17.12 - Unilateral primary osteoarthritis, left knee (ICD-10) Mild cognitive impairment ?G31.84 - Mild cognitive impairment of uncertain or unknown etiology (ICD-10) Mitral regurgitation ?I34.0 - Nonrheumatic mitral (valve) insufficiency (ICD-10) Adenomatous colon polyp ?D12.6 - Benign neoplasm of colon, unspecified (ICD-10) Ptosis of left eyelid ?H02.402 - Unspecified ptosis of left eyelid (ICD-10) Migraine ?G43.909 - Migraine, unspecified, not intractable, without status migrainosus (ICD-10) Osteoporosis ?M81.0 - Age-related osteoporosis without current pathological fracture (ICD-10) Surgical History History of blepharoplasty ?Z98.890 - Other specified postprocedural states (ICD-10) History of cataract surgery ?Z98.49 - Cataract extraction status, unspecified eye (ICD-10) History of laparoscopic cholecystectomy ?Z90.49 - Acquired absence of other specified parts of digestive tract (ICD-10) History of vaginal hysterectomy ?Z90.710 - Acquired absence of both cervix and uterus (ICD-10) Social History What is your current living situation?: I presently have a place to live Problems where you live: no known problems Problems where you live details: N/A In the past 12 months, utilities in danger of being shut off: no In past 12 months, lack of transportation kept you from medical appts, meetings, work, or getting things needed for daily living: no In the past 12 mos, have been you worried that your food would run out before you had money to buy more?: never true In the past 12 mos, the food you bought just didn't last and you didn't have money to buy more?: never true Smoking Status: Former smoker What tobacco products do you use: cigarettes Smoking quit date/years: >15 years ago Do you use any of these nicotine containing products: None Second hand tobacco smoke exposure: No How often do you have a drink containing alcohol: never How often do you have six or more drinks on one occasion: Never AUDIT-C Alcohol total score: 0 Non-prescribed substance use: denies use Caffeine: Yes (5-6 cups/day) How often does anyone, including family, friends and others, physically hurt you: never How often does anyone, including family, friends and others, insult or talk down to you: never How often does anyone, including family, friends and others, threaten you with harm: never How often does anyone, including family, friends and others, scream or curse at you: never Little interest or pleasure in doing things: not at all Feeling down, depressed, or hopeless: not at all Exam Narrative: Exam Narrative: Objective: Patient is alert oriented to person and place not to time. She denies any pain or injury. She denies a headache. She reports her vision is normal. Her vital signs look largely on within normal limits. Her blood sugar was in the 1 teen range. HEENT shows no obvious facial asymmetry Mouth is clear,, mucous membranes are dry Lungs are clear Heart rate and rhythm regular with act ectopy and 2/6 systolic murmur Abdomen benign soft Pelvis stable nontender , able to internal and external rotate her hips and flex extend her hips without pain Lower extremities show good flexion extension strength of her feet She does have a week and hand grasp on the left., but she does have a grasp. She has normal sensation in upper lower extremities. Const: Vital Signs, click to edit/add: Vital Signs - 24 hr 09/06/23 17:10 09/06/23 17:13 09/06/23 17:49 Temperature Pulse Rate 106 H Pulse Rate [Pulse Oximeter] 98 Respiratory Rate 20 Blood Pressure Blood Pressure [Ri ght Upper Arm] 100/48 L Pulse Oximetry 97 95 97 Oxygen Delivery Me thod Room Air 09/06/23 17:50 09/06/23 17:54 09/06/23 18:00 Temperature 97.4 F L Pulse Rate 103 H 97 Pulse Rate [Pulse Oximeter] 104 H Respiratory Rate 18 Blood Pressure 151/73 H Blood Pressure [Ri ght Upper Arm] 151/73 H Pulse Oximetry 98 97 97 Oxygen Delivery Me thod Nasal Cannula 09/06/23 18:01 09/06/23 18:02 09/06/23 18:22 Temperature Pulse Rate 99 98 98 Pulse Rate [Pulse Oximeter] Respiratory Rate Blood Pressure 135/79 147/67 H Blood Pressure [Ri ght Upper Arm] Pulse Oximetry 98 97 94 Oxygen Delivery Me thod 09/06/23 18:30 09/06/23 18:42 09/06/23 18:46 Temperature Pulse Rate 98 90 Pulse Rate [Pulse Oximeter] Respiratory Rate Blood Pressure 137/68 Blood Pressure [Ri ght Upper Arm] Pulse Oximetry 97 94 Oxygen Delivery Me thod 09/06/23 19:00 09/06/23 19:02 09/06/23 19:07 Temperature Pulse Rate 87 88 Pulse Rate [Pulse Oximeter] Respiratory Rate 18 Blood Pressure 146/72 H Blood Pressure [Ri ght Upper Arm] Pulse Oximetry 95 95 Oxygen Delivery Me thod Course Vital Signs Vital signs: Initial Vital Signs Pulse Oximetry 97 09/06/23 17:10 Vital Signs Pulse Oximetry 97 09/06/23 17:10 Temperature 97.7 F 09/07/23 03:09 Pulse Rate 74 09/07/23 03:09 Respiratory Rate 20 09/07/23 03:09 Blood Pressure 138/72 09/07/23 03:09 Pulse Oximetry 94 09/07/23 03:09 Oxygen Delivery Method Room Air 09/07/23 03:09 Medications Administered Medications: Generic Name Dose Route Start Last Admin Trade Name Freq PRN Reason Stop Dose Admin Acetaminophen 650 mg 09/06/23 21:00 09/06/23 21:34 Acetaminophen 325 Mg Tablet PO 650 mg QID KELLEY Administration Atorvastatin Calcium 10 mg 09/06/23 22:00 09/06/23 22:06 Atorvastatin 10 Mg Tablet PO 10 mg HS KELLEY Administration Enoxaparin Sodium 60 mg 09/06/23 21:00 09/06/23 22:06 Enoxaparin 60 Mg/0.6 Ml Inj SUBCUT 60 mg Q12H KELLEY Administration Sodium Chloride 1,000 mls @ 125 mls/hr 09/06/23 20:13 09/07/23 07:13 0.9 % Sodium Chloride 1000 Ml IV 125 mls/hr .Q8H KELLEY Administration Metoprolol Tartrate 12.5 mg 09/06/23 21:00 09/06/23 21:33 Metoprolol Tartrate 25 Mg Tablet PO 12.5 mg BID KELLEY Administration Sodium Chloride 5 ml 09/06/23 21:00 09/07/23 03:07 Sodium Chloride 0.9 % (Flush) 10 Ml Syringe IVF Not Given BID KELLEY Discontinued Medications Generic Name Dose Route Start Last Admin Trade Name Cuca PRN Reason Stop Dose Admin Clopidogrel Bisulfate 300 mg 09/06/23 20:10 09/06/23 21:33 Clopidogrel 75 Mg Tablet PO 09/06/23 20:11 300 mg ONCE ONE Administration Famotidine 20 mg 09/06/23 20:10 09/06/23 21:34 Famotidine 10 Mg/Ml Inj IVP 09/06/23 20:11 20 mg ONCE ONE Administration Sodium Chloride 500 mls @ 500 mls/hr 09/06/23 17:12 09/06/23 17:55 0.9 % Sodium Chloride 500 Ml IV 09/06/23 18:11 500 mls/hr .Q1H ONE Administration Remdesivir 200 mg/ Sodium 290 mls @ 290 mls/hr 09/06/23 22:00 09/06/23 22:45 Chloride IVPB 09/06/23 22:59 290 mls/hr ONCE ONE Administration Sodium Chloride 500 mls @ 500 mls/hr 09/06/23 20:13 09/07/23 02:00 0.9 % Sodium Chloride 500 Ml IV 09/06/23 21:12 Infused .Q1H ONE Infusion Medical Decision Making MDM Narrative Medical decision making narrative: 78-year-old white female found down at home, with a history of cerebrovascular disease, mitral good regurgitation, and mild cognitive impairment. Unclear if this is a trauma related issue, electrolyte imbalance, acute coronary syndrome, stroke. The patient will get the above-mentioned workup. Will contact Stroke Neurology. Will check labs and electrolytes, mild fluid hydration. At this point the patient states she is DNR DNI, will also attempt to reach family and see was advanced care planning has been. Patient will need hospitalization. She has also had diarrhea insert get up dehydration, and generalized weakness from this. Also with her being down for an unknown period of time will check her CPK and make sure does not have rhabdomyolysis. Will also check a urine cath specimen. Disposition pending findings above. Addendum 5:46 p.m.: I was able to have a conversation with the patient's daughter Jose whose telephone [phone], and she agrees that the patient is DNR DNI and she does have a living will on her record. The patient reiterated the same concept. I think at this point will check her CTs in her labs. Given we do not have a last known well as can be very difficult to do any kind of aggressive stroke treatment. Also will check keep restaurant front manager on her. At this point I think she is going to need hospitalization for cardiac monitoring, perhaps hydration, she has had diarrhea and I obviously profound weakness. I think checking her electrolytes and giving her IV hydration be appropriate. Will discuss with hospitalist once tests are completed. Addendum 6:25 p.m.: No acute hemorrhage on head CT, the right scalp hematoma, enlarged bilateral lateral ventricles.Cervical spine CT scan does show no acute fracture. Head and neck CT angiogram show no occlusion or aneurysm in the intracranial extracranial circulations, moderate calcification of the bilateral carotid bifurcations with roughly 50% narrowing of the proximal right internal carotid artery. Chest x-ray by my review shows no significant changes, some pleural thickening superiorly bilaterally. Patient's fracture of the right superior and inferior pubic rami. The patient will need hospitalization for this, IV fluid, monitoring of her electrolytes and labs. He has continued to return. There is some lab machines that her down currently and will get these labs back on the return. Will discuss with hospitalist. Given the patient's medical wishes I do not think consultation with Stroke Neurology makes sense at this point. I do think physical therapy, pain control, IV hydration would be appropriate as well as cardiac monitoring. Lab Data Labs: Lab Results 09/06/23 09/06/23 Range/Units 17:56 17:58 WBC 9.31 (4.50-11.00) K/uL RBC 3.81 L (4.00-5.20) m/uL Hgb 12.8 (12.0-16.0) gm/dL Hct 38.7 (33.0-51.0) % MCV 102 H (80-100) fL MCH 34 (26-34) pg MCHC 33 (32-36) gm/dL RDW Coeff of Ludy 12.9 (11.5-15.5) % Plt Count 167 (140-440) K/uL Neut % (Auto) 86.6 H (42.0-72.0) % Lymph % (Auto) 5.3 L (20-44) % Nash % (Auto) 7.8 (0.0-11.0) % Eos % (Auto) 0.0 (0.0-7.0) % Baso % (Auto) 0.0 (0.0-3.0) % Neut # (Auto) 8.10 H (1.7-7.0) K/uL Lymph # (Auto) 0.50 L (0.90-2.90) K/uL Nash # (Auto) 0.70 (0.00-0.90) K/UL Eos # (Auto) 0.00 (0.00-0.50) K/uL Baso # (Auto) 0.00 (0.00-0.30) K/uL Abs Immat Gran (auto) 0.03 (0.00-0.30) K/uL Imm/Tot Granulo (auto) 0.3 % INR 1.01 (0.91-1.10) APTT 29 (23-33) Seconds Sodium 135 (135-149) mmol/L Potassium 4.0 (3.6-5.1) mmol/L Chloride 105 (96-114) mmol/L Carbon Dioxide 23 (20-32) mmol/L Anion Gap 7 (7-15) mEq/L BUN 43 H (7-30) mg/dL Creatinine 0.6 (0.5-1.5) mg/dL Estimated GFR 91 ml/min Glucose 121 H (60-115) mg/dL Lactate 2.4 H (0.5-1.9) mmol/L Calcium 8.5 (8.4-10.6) mg/dL Total Bilirubin 0.8 (0.1-1.5) mg/dL Direct Bilirubin 0.3 (0.0-0.5) mg/dL AST 158 H (12-35) U/L ALT 58 H (4-35) U/L Alkaline Phosphatase 66 (40-150) U/L Total Creatine Kinase 5724 H (41-117) U/L Troponin I 0.32 H* (0.01-0.04) ng/mL C-Reactive Protein 4.0 H (0.5-1.0) mg/dL NT-Pro-B Natriuret Pep 3670 pg/mL Total Protein 7.1 (6.0-8.3) g/dL Albumin 3.9 (3.3-5.0) g/dL Amylase 64 (18-89) U/L SARS-CoV-2 (PCR) POSITIVE SARS-CoV-2 A (Negative) Influenza Type A (PCR) Negative PCR FLU A (Negative) Influenza Type B (PCR) Negative PCR FLU B (Negative) RSV (PCR) Negative PCR RSV (Negative) Discharge Plan Discharge Clinical Impression: Mitral regurgitation, Mild cognitive impairment, Cerebrovascular accident, Fall, Pubic ramus fracture Patient Disposition: Admitted As Observation
[2023-09-06] MEDS: 0.9 % SODIUM CHLORIDE 500 ML 500 ML IV ×2 (17:55→21:32)
--- OUTSIDE RECORDS SUMMARY | 2023-09-06 17:56 | XMS_ITS | Clinical Summary ---
Author Name Unknown Organization [facility] Address [place], [place] [address] Care Team Providers Care Material Assistant Name Role Phone Echo Burgos MD Primary Care Provider [phone] Allergies No known active allergies Medications Medication [...] Influenza for age 65+ 01/01/2024 Care Teams Material Assistant Relationship Specialty Start Date End Date Echo Burgos MD [address] [place] [address] PCP - General Internal Medicine 09/30/17
--- OUTSIDE RECORDS SUMMARY | 2023-09-06 17:57 | XMS_ITS | Data Portability ---
Author Name Unknown Address [address] [place] [address] Phone [phone] Organization [place] [facility] [employer] Address [address] [place] [address] Assessment Encounter Date Assessment Date Assessment LastModified by Organization Details LastModified Time 06/08/2022 06/08/2022 We discussed foot care for pronation and hallux valgus b/l. Pt. wished to proceed with discussion of orthotics and Subiomed for knees before considering surgical treatment. [email or web address] Not available 07/02/2022 18:45:37 06/30/2022 06/30/2022 We discussed foot care for pronation and hallux valgus b/l. Pt. wished to proceed with discussion of Subiomed for knees before she considers knee surgery. Will follow to evaluate orthoic progress and trial subiomed next visit. [email or web address] Not available 08/04/2022 20:56:24 07/28/2022 07/28/2022 We discussed foot care for pronation and hallux valgus b/l. Pt. wished to proceed with orthotics for knees before considering surgical treatment. [email or web address] Not available 07/28/2022 16:30:25 Plan of Treatment [...] Active 02/01/20 20 Hammer toe; Original Code: [id number] Original Codesystem : SNOMED CT Classif ication: Medical Co nfirmation Status: Confirmed Not Available [facility] 07/06/2022 09:06:25 Callosity Active 02/01/20 20 Callosity; Original Code: [id number] Original Codesystem : SNOMED CT Classif ication: Medical Co nfirmation Status: Confirmed Not Available [facility] 07/06/2022 09:06:25 Pain of knee region Active 03/17/20 21 Pain of knee region; Original Code: [id number] Original Codesystem : SNOMED CT Classif ication: Medical Co nfirmation Status: Confirmed Not Available [facility] 07/06/2022 09:06:25 Acquired hallux valgus Active 02/01/20 20 Acquired hallux valgus; Original Code: [id number] Original Codesystem : SNOMED CT Classif ication: Medical Co nfirmation Status: Confirmed Acquired hallux valgus; Original Code: [id number] Original Codesystem : SNOMED CT Classif ication: Medical Co nfirmation Status: Confirmed ; Start Date : 01/08/2020 Not Available [facility] 07/06/2022 09:06:25 Problem Notes None recorded. Medical [...] Updated DateTime 06/08/2022 167.64 cm 25.8 kg/m2 18862.78 g [facility] [...] Diagnosis SNOMED-CT Code 2745 Cody Grimaldo DPM [place] [facility] [address] [place] [id number] 06/08/2022 15:06:04 06/09/2022 10:20:26 Pain in left foot 04634025570550 7 Pain in right foot 15142 [id number] 7 Hallux rhoda alphonso AND bunion 047003363 Hammer toe 541247811 Pain of ri ght knee joint 30801555201929 0 Pain of le ft knee joint [id number] 7 [address] [facility] [address] [place] [address] 07/16/2022 10:04:03 08/05/2022 10:05:00 Pain in left foot 09646416184521 7 Pain in right foot 61822 [id number] 7 Hallux rhoda alphonso AND bunion 504083648 Hammer toe 776527746 Pain of ri ght knee joint 24288418207862 0 Pain of le ft knee joint 75321381116121 7 [address] Jose [address] [place] [address] 07/28/2022 15:14:36 07/28/2022 16:43:29 Pain in left foot 10472753666792 7 Pain in right foot 14497 [id number] 7 Hallux rhoda alphonso AND bunion 146424041 Hammer toe 873043340 Pain of ri ght knee joint 90138488751509 0 Pain of le ft knee joint 86476523264375 7 Health Concerns Section Related Observation LastModified by Organization Detai ls LastModified Time None Recorded Concern Status LastModified by Organization Details LastModified Time None Recorded Advance Directives Directive None Recorded Payers Encounter Date Sequence Insurance Name Policy Number Policy [place] Covered Member ID [place] Member ID Guarantor Name 07/28/2022 1 [employer] - CHOICE (POS II) [id number] Samreen Hernandez [id number] 2 Samreen Hernandez 06/30/2022 1 [employer] - CHOICE (POS II) [id number] Samreen Hernandez [id number] Samreen Hernandez 06/30/2022 1 MED[place]: [employer] Samreen Hernandez [id number] Samreen Hernandez 06/08/2022 1 [employer] - CHOICE (POS II) [id number] Samreen Hernandez [id number] 2 Samreen Hernandez Notes Date Note Type Note Provider Name and Address Organization Details Recorded Time 06/08/2022 text/html HPI Notes: Increasing pain in shoes with activity related to bunions . Prior shoe changes and conservative care. Has used orthotics for some time. Cody Grimaldo DPM [address] [place], [address], [facility] 07/02/2022 18:46:14 06/30/2022 text/html HPI Notes: Increasing pain in shoes with activity related to bunions . Prior shoe changes and conservative care. Orthotic modifications have failed to significantly im prove symptoms. Continued knee pain b/l. Cody Grimaldo DPM [address] [place], [address], [facility] 08/04/2022 20:56:39 07/28/2022 text/html HPI Notes: Increasing pain in shoes with activity related to bunions . Prior shoe changes and conservative care. Has used orthotics for some time. Cody Grimaldo DPM [address] [place], [address], [facility] 07/28/2022 16:32:09 OBGyn Episode No OBEpisode recorded.
[2023-09-06 18:05] LABS: Lactate* 2.4 mmol/L (0.5-1.9)
[2023-09-06 18:10] LABS: Hematocrit 38.7 % (33.0-51.0); Hemoglobin* 12.8 gm/dL (12.0-16.0); Immature Granulocytes Abs Auto 0.03 K/uL (0.00-0.30); Immature Granulocytes Pct Auto 0.3 %; Lymphocytes Percent Auto 5.3 % (20-44); Mean Corpuscular HGB Conc 33 gm/dL (32-36); Mean Corpuscular Hemoglobin 34 pg (26-34); Mean Corpuscular Volume 102 fL (80-100); Monocytes Percent Auto 7.8 % (0.0-11.0); Neutrophils Percent Auto 86.6 % (42.0-72.0); Platelet Count* 167 K/uL (140-440); RDW Coefficient of Variation % 12.9 % (11.5-15.5); Red Blood Count 3.81 m/uL (4.00-5.20); White Blood Count* 9.31 K/uL (4.50-11.00)
[2023-09-06 18:11] LABS: Slide Review Reflex No
[2023-09-06 18:23] LABS: Albumin* 3.9 g/dL (3.3-5.0); Chloride* 105 mmol/L (96-114); INR 1.01 (0.91-1.10); Prothrombin Time 13.9 Seconds; Sodium* 135 mmol/L (135-149)
[2023-09-06 18:24] LABS: Partial Thromboplastin Time* 29 Seconds (23-33)
[2023-09-06 18:25] LABS: Amylase* 64 U/L (18-89)
[2023-09-06 18:26] LABS: Alkaline Phosphatase* 66 U/L (40-150); Anion Gap 7 mEq/L (7-15); Aspartate Amino Transferase* 158 U/L (12-35); Bilirubin Direct* 0.3 mg/dL (0.0-0.5); Bilirubin Total* 0.8 mg/dL (0.1-1.5); Blood Urea Nitrogen* 43 mg/dL (7-30); Calcium* 8.5 mg/dL (8.4-10.6); Carbon Dioxide* 23 mmol/L (20-32); Creatinine* 0.6 mg/dL (0.5-1.5); Estimated Glomerular Filt Rate 91 ml/min; Total Protein* 7.1 g/dL (6.0-8.3)
[2023-09-06 18:27] LABS: Alanine Aminotransferase* 58 U/L (4-35)
[2023-09-06 18:40] LABS: PCR FLU A Negative PCR FLU A (Negative); PCR FLU B Negative PCR FLU B (Negative); PCR RSV Negative PCR RSV (Negative); SARS PCR* POSITIVE SARS-CoV-2 (Negative)
[2023-09-06 18:44] LABS: Glucose* 121 mg/dL (60-115)
[2023-09-06 18:51] LABS: NT Pro B Type NatriureticPept* 3670 pg/mL; Troponin I* 0.32 ng/mL (0.01-0.04)
--- NOTE | 2023-09-06 19:06 | ED.NURSE ---
pt report given to margo MUSTAFA. Pt to room 276.
[2023-09-06 20:01] LABS: Creatine Kinase* 5724 U/L (41-117)
--- NOTE | 2023-09-06 20:27 | PM.IMHP1 ---
Hospitalist- H&P: HPI History of Present Illness Date Seen: 09/06/23 Chief complaint: Fall Narrative: Samreen Hernandez is a 78 year old woman presents to the [facility] ED this evening via EMS after having been found on her kitchen floor by her daughter and son-in-law. Patient remembers falling, but does not recall when or how long she was on the floor. She spoke with her daughter who lives in [place] Tuesday evening, 48 hours ago, and her daughter who lives in [facility] has not heard from her since then so checked on her today. In our ED she is found to have COVID, acute rights sided superior and inferior pubic rami fractures, elevated troponin-I of 0.32 with normal ECG and no symptoms, and creatine kinase elevated at greater than 5,000. She is admitted for initiation of treatment for NSTEMI, IV fluids, monitoring CK, treatment of COVID, ortho consult, PT and OT consult. Patient requests full resuscitation in event of cardiopulmonary demise. Review of Systems Status of ROS: Reports: 10 or more systems reviewed and unremarkable except as noted in History and below Narrative: Primary clincian is Dr. Burgos. [facility] Medical History (Updated 09/06/23 @ 20:49 by Gregg Junior MD) Cerebrovascular accident ?I63.9 - Cerebral infarction, unspecified (ICD-10) Cerebrovascular disease ?I67.9 - Cerebrovascular disease, unspecified (ICD-10) Vitamin B12 deficiency without anemia ?E53.8 - Deficiency of other specified B group vitamins (ICD-10) Osteoarthritis of right knee ?M17.11 - Unilateral primary osteoarthritis, right knee (ICD-10) Osteoarthritis of left knee ?M17.12 - Unilateral primary osteoarthritis, left knee (ICD-10) Mild cognitive impairment ?G31.84 - Mild cognitive impairment of uncertain or unknown etiology (ICD-10) Mitral regurgitation ?I34.0 - Nonrheumatic mitral (valve) insufficiency (ICD-10) Adenomatous colon polyp ?D12.6 - Benign neoplasm of colon, unspecified (ICD-10) Ptosis of left eyelid ?H02.402 - Unspecified ptosis of left eyelid (ICD-10) Migraine ?G43.909 - Migraine, unspecified, not intractable, without status migrainosus (ICD-10) Osteoporosis ?M81.0 - Age-related osteoporosis without current pathological fracture (ICD-10) Surgical History History of blepharoplasty ?Z98.890 - Other specified postprocedural states (ICD-10) History of cataract surgery ?Z98.49 - Cataract extraction status, unspecified eye (ICD-10) History of laparoscopic cholecystectomy ?Z90.49 - Acquired absence of other specified parts of digestive tract (ICD-10) History of vaginal hysterectomy ?Z90.710 - Acquired absence of both cervix and uterus (ICD-10) Social History What is your current living situation?: I presently have a place to live Problems where you live: no known problems In the past 12 months, utilities in danger of being shut off: no In past 12 months, lack of transportation kept you from medical appts, meetings, work, or getting things needed for daily living: no In the past 12 mos, have been you worried that your food would run out before you had money to buy more?: never true In the past 12 mos, the food you bought just didn't last and you didn't have money to buy more?: never true Smoking Status: Former smoker What tobacco products do you use: cigarettes Smoking quit date/years: >15 years ago Do you use any of these nicotine containing products: None Second hand tobacco smoke exposure: No How often do you have a drink containing alcohol: never How often do you have six or more drinks on one occasion: Never AUDIT-C Alcohol total score: 0 Non-prescribed substance use: denies use How often does anyone, including family, friends and others, physically hurt you: never How often does anyone, including family, friends and others, insult or talk down to you: never How often does anyone, including family, friends and others, threaten you with harm: never How often does anyone, including family, friends and others, scream or curse at you: never Little interest or pleasure in doing things: not at all Feeling down, depressed, or hopeless: not at all Meds Home Medications and Allergies Home Medications Medication Instructions Recorded Confirmed Type acetaminophen 650 mg 1,300 mg PO Q12H 12/08/22 08/04/23 History tablet,extended release (Tylenol Arthritis Pain) Allergies Allergy/AdvReac Type Severity Reaction Status Date / Time No Known Drug Allergies Allergy Verified 08/04/23 13:15 Exam Narrative: Exam Narrative: I examine her in the ED. She appears comfortable and in no apparent distress. Vision and hearing are adequate. Alert and oriented to self, place, not to time or situation - no unusual for her according to her daughter, Jose. Friendly and cooperative. TMs normal. Midline nasal septum. Dry buccal mucosa. Dentition in good repair. No icterus or conjunctival injection. PERRLA. Conjugate gaze. Chronic ptosis. Neck is supple. No bruits. No JVD or HJR. No head and neck lymphadenopathy. Lungs are clear to auscultation. Heart tones with regular rhythm. Abdomen with active bowel sounds, soft. Contusion on right lateral thigh and hip area. ROM of hips symmetric. Extremities without edema. Skin is intact. No focal motor neurological deficits. Const: Vital Signs, click to edit/add: Vital Signs - 24 hr 09/06/23 17:10 09/06/23 17:13 09/06/23 17:49 Temperature Pulse Rate 106 H Pulse Rate [Pulse Oximeter] 98 Respiratory Rate 20 Blood Pressure Blood Pressure [Ri ght Upper Arm] 100/48 L Pulse Oximetry 97 95 97 Oxygen Delivery Me thod Room Air 09/06/23 17:50 09/06/23 17:54 09/06/23 18:00 Temperature 97.4 F L Pulse Rate 103 H 97 Pulse Rate [Pulse Oximeter] 104 H Respiratory Rate 18 Blood Pressure 151/73 H Blood Pressure [Ri ght Upper Arm] 151/73 H Pulse Oximetry 98 97 97 Oxygen Delivery Me thod Nasal Cannula 09/06/23 18:01 09/06/23 18:02 09/06/23 18:22 Temperature Pulse Rate 99 98 98 Pulse Rate [Pulse Oximeter] Respiratory Rate Blood Pressure 135/79 147/67 H Blood Pressure [Ri ght Upper Arm] Pulse Oximetry 98 97 94 Oxygen Delivery Me thod 09/06/23 18:30 09/06/23 18:42 09/06/23 18:46 Temperature Pulse Rate 98 90 Pulse Rate [Pulse Oximeter] Respiratory Rate Blood Pressure 137/68 Blood Pressure [Ri ght Upper Arm] Pulse Oximetry 97 94 Oxygen Delivery Me thod 09/06/23 19:00 09/06/23 19:02 09/06/23 19:07 Temperature Pulse Rate 87 88 Pulse Rate [Pulse Oximeter] Respiratory Rate 18 Blood Pressure 146/72 H Blood Pressure [Ri ght Upper Arm] Pulse Oximetry 95 95 Oxygen Delivery [facility] Hospitalist - H&P: Result Labs Labs: Short CBC 09/06/23 Range/Units 17:56 WBC 9.31 (4.50-11.00) K/uL Hgb 12.8 (12.0-16.0) gm/dL Hct 38.7 (33.0-51.0) % Plt Count 167 (140-440) K/uL BMP 09/06/23 17:56 Sodium 135 Potassium 4.0 Chloride 105 Carbon Dioxide 23 BUN 43 H Creatinine 0.6 Glucose 121 H Calcium 8.5 Cardiac Enzymes 09/06/23 Range/Units 17:56 Total Creatine Kinase 5724 H (41-117) U/L Troponin I 0.32 H* (0.01-0.04) ng/mL Liver Function 09/06/23 Range/Units 17:56 Total Bilirubin 0.8 (0.1-1.5) mg/dL Direct Bilirubin 0.3 (0.0-0.5) mg/dL AST 158 H (12-35) U/L ALT 58 H (4-35) U/L Alkaline Phosphatase 66 (40-150) U/L Albumin 3.9 (3.3-5.0) g/dL ECG ECG interpretation date: 09/06/23 Interpretation: Sinus tachycardia at 105 BPM without infarction or ischemic changes. Imaging Chest x-ray: Attestation: I have reviewed the pertinent imaging results. Radiologist's impression: No acute abnormalities. Pelvic x-ray: Attestation: I have reviewed the pertinent imaging results. Radiologist's impression: Right superior and inferior pubic rami fractues. CT scan - head: Radiologist's impression: 1. No acute hemorrhage. 2. Redemonstration of enlarged bilateral lateral ventricles. Findings may be seen in the setting of normal pressure hydrocephalus. 3. Moderate to large right scalp hematoma. CT scan - angiogram of head and neck: Radiologist's impression: 50% stenosis of left carotid artery Assessment and Plan Assessment and plan (1) Fall: Problem comment: - 09/06/2023: found on floor of her kitchen, possibly on floor for 24-36 hours - Orthopedic surgery consult - PT and OT consult Status: Acute (2) Pubic ramus fracture: Problem comment: - 09/06/2023: Right superior and inferior pubic rami fxs s/p unwitnessed fall - Ortho consult Status: Acute (3) Traumatic rhabdomyolysis: Problem comment: - 09/06/2023: CK 5,300; monitor CK and renal fctn - NS IV bolus and maintenance 125 ml/hr Status: Acute (4) Non-ST elevation myocardial infarction (NSTEMI): Problem comment: - 09/06/2023 @ 1800: No symptoms, Trop-I 0.32, no ECG infarct or ischemic changes. - Rx: O2, ASA 81 mg, clopidogrel 300 mg once then 75 mg po qd, enoxaparin 1 mg/kg q 12 hours, metoprolol tartrate 12.5 mg po bid, atorvastatin 10 mg qHS. - monitor on telemetry, serial ECGs, ECHO, trop-I - consider angiogram if warranted - patient and family are agreeable Status: Acute (5) COVID: Problem comment: - remdesivir x 3 days - precautions Status: Acute (6) Osteoporosis: Problem comment: Dxed 2004, latest DEXA 01/2010, 09/2012, alendronate started 10/12, stable DEXA 11/13, improved by DEXA 09/16 so drug holiday of alendronate started 09/16, DEXA stable 12/19, alendronate restarted 01/20 Status: Acute (7) Mild cognitive impairment: Problem comment: (Mini cog testing is 1 of 5 with abnormal clock face drawing (she missed 2 of the words on recall, and the clock numbers were slightly off, and the hand were in the wrong place). She got the clock right 12/2020 and only missed 1 word last year). MoCA with OT early 2023 Status: Acute (8) Cerebrovascular disease: Problem comment: Diagnosed with acute/subacute infarcts and moderate chronic ischemic disease on MRI brain done 07/23 for mild cognitive impairment Status: Acute (9) Cerebrovascular accident: Status: Acute (10) Vitamin B12 deficiency without anemia: Problem comment: Vitamin B12 level modestly low at 235 without anemia, as part of evaluation for mild cognitive impairment, 06/25 Status: Acute Plan 1. Reviewed impression with patient and daughter, Jose, and son-in-law, Sylvester. 2. Answered their questions. 3. They are agreeable to above stated plans and recommendations. Total Time Spent Total Time Spent: 75 minutes
[2023-09-06 20:47] LABS: HCO3 VBG 26 mmol/L (21-28); Lactate* 1.7 mmol/L (0.5-1.9); PCO2 VBG 41 mmHG (40-50); PO2 VBG < 30.1 mmHG (25-47); pH VBG 7.407 (7.32-7.43)
[2023-09-06 21:25] LABS: Troponin I* 0.28 ng/mL (0.01-0.04)
[2023-09-06] MEDS: METOPROLOL TARTRATE 25 MG TABLET 12.5 MG PO (21:33)
[2023-09-06] MEDS: CLOPIDOGREL 75 MG TABLET 300 MG PO (21:33)
[2023-09-06] MEDS: ACETAMINOPHEN 325 MG TABLET 650 MG PO (21:34)
[2023-09-06] MEDS: FAMOTIDINE 10 MG/ML inj 20 MG IVP (21:34)
[2023-09-06] MEDS: ENOXAPARIN 60 MG/0.6 ML INJ SUBCUT (22:06)
[2023-09-06] MEDS: ATORVASTATIN 10 MG TABLET PO (22:06)
[2023-09-07] VITALS (10 sets, daily range): BP systolic 113–157; BP diastolic 54–76; PULSE 63–92; RESP 16–20; TEMP 36.4–36.9; O2SAT 94–95; BMI 22.5
--- NOTE | 2023-09-07 01:11 | PC.NURSE ---
End of shift [id number] - Pt alert, oriented to self. Disoriented to time, place, situation. Attempted to stand/pivot to bedside commode but pt was unable to bear wt with 2 assist and walker/ gait belt. Bedpan used, pt able to void and BM. Functionally incontinent of bowel and bladder. Tolerating RA, regular fluids. Denies pain, SOB, nausea, vomiting. Family at bedside. Bruising noted on R hip and R face/head consistent with report of fall prior to hospital admission.
[2023-09-07] MEDS: 0.9 % SODIUM CHLORIDE 1000 ml 1,000 ML 125 ML IV ×2 (02:00→07:13)
[2023-09-07 06:53] LABS: HCO3 VBG 25 mmol/L (21-28); PCO2 VBG 37 mmHG (40-50); PO2 VBG 30.9 mmHG (25-47); pH VBG 7.435 (7.32-7.43)
--- NOTE | 2023-09-07 07:10 | P.IMPN_ITS ---
Progress Note: A&P Assessment and plan (1) Fall: Problem details: - 09/06/2023: found on floor of her kitchen, possibly on floor for 24-36 hours - Orthopedic surgery consult given fracture of R superior/inferior pubic rami - PT and OT following Status: Acute (2) Pubic ramus fracture: Problem details: - 09/06/2023: Right superior and inferior pubic rami fxs s/p unwitnessed fall - Ortho consult Status: Acute (3) Traumatic rhabdomyolysis: Problem details: - 09/06/2023: CK 5,300; monitor CK and renal function - NS IV bolus and maintenance 125 ml/hr, following CK Status: Acute (4) Elevated BUN: Problem details: - noted on 09/06, increased from 23-->43, creatinine unchanged - Hgb dropped from 12.8-->10.9, will follow Hgb, add PPI, Hemoccult stool Status: Acute (5) Non-ST elevation myocardial infarction (NSTEMI): Problem details: - 09/06/2023 @ 1800: No symptoms, Trop-I 0.32, no ECG infarct or ischemic changes - Rx: O2, ASA 81 mg, clopidogrel 300 mg once then 75 mg po qd, enoxaparin 1 mg/kg q 12 hours, metoprolol tartrate 12.5 mg po bid, atorvastatin 10 mg qHS - monitor on telemetry, serial ECGs, ECHO, trop-I - 09/07/23: chest pain free - consider angiogram if warranted - patient and family are agreeable to further Cardiac intervention if needed Status: Acute (6) COVID: Problem details: - diagnosed 09/06/23 - Remdesivir x 3 days - precautions Status: Acute (7) Mild cognitive impairment: Problem details: - MoCA with OT early 2023 - Mini cog testing is 1 of 5 with abnormal clock face drawing (she missed 2 of the words on recall, and the clock numbers were slightly off, and the hand were in the wrong place). She got the clock right 12/2020 and only missed 1 word 2022 Status: Acute (8) Cerebrovascular disease: Problem details: - Diagnosed with acute/subacute infarcts and moderate chronic ischemic disease on MRI brain done 07/23 for mild cognitive impairment - formal radiology read of MRI: Impression: 1. Few small scattered foci of acute/subacute infarcts within the right posterior frontal, parietal and temporal lobes. 2. Moderate chronic ischemic microvascular disease. Status: Acute (9) Vitamin B12 deficiency without anemia: Problem details: - Vitamin B12 level modestly low at 235 without anemia, as part of evaluation for mild cognitive impairment, 06/25 - has been on oral replacement Status: Acute Plan - per above - will likely require TCU stay upon discharge when medically appropriate - son-in-law updated at bedside, questions answered Subjective Date Seen: 09/07/23 Interval history: Samreen was admitted to the hospital last night after a fall at home with unknown downtime. She was found to have rhabdomyolysis, elevated troponin (presumably 2/2 NSTEMI), + COVID. Imaging revealed R superior and inferior pubic rami fractures. Overnight, initiated treatment with Remdesivir for COVID; IVFs for rhabdomyolysis; BB, Plavix, statin, ASA, 1mg/kg Lovenox BID for elevated troponin. This morning, Samreen is feeling better. She is having too much pain to bear weight on RLE, using EZ stand for transfers. She has no concerns for hospitalist team. Lab findings: Hgb has fallen from 12.8 --> 10.9. BUN is up to 43 from 23; creatinine remains the same at 0.6 TTE to be done today. Exam Narrative: Exam Narrative: GEN: Alert and oriented, sitting comfortably in bedside chair and eating breakfast when I see her HEENT: EOMIs bilaterally, no scleral icterus CV: RRR, No concerning murmurs R: LCTA bilaterally without concerning wheezing, decreased bibasilar breath sounds Ext: wwp, no concerning edema Skin: No concerning skin lesions or rashes on exposed skin Neuro: Nonfocal Psych: Appropriate Const: Vital Signs, click to edit/add: Vital Signs - 24 hr 09/06/23 17:10 09/06/23 17:13 09/06/23 17:49 Temperature Pulse Rate 106 H Pulse Rate [Pulse Oximeter] 98 Respiratory Rate 20 Blood Pressure Blood Pressure [Le ft Arm] Blood Pressure [Ri ght Upper Arm] 100/48 L Pulse Oximetry 97 95 97 Oxygen Delivery Me thod Room Air 09/06/23 17:50 09/06/23 17:54 09/06/23 18:00 Temperature 97.4 F L Pulse Rate 103 H 97 Pulse Rate [Pulse Oximeter] 104 H Respiratory Rate 18 Blood Pressure 151/73 H Blood Pressure [Le ft Arm] Blood Pressure [Ri ght Upper Arm] 151/73 H Pulse Oximetry 98 97 97 Oxygen Delivery Me thod Nasal Cannula 09/06/23 18:01 09/06/23 18:02 09/06/23 18:22 Temperature Pulse Rate 99 98 98 Pulse Rate [Pulse Oximeter] Respiratory Rate Blood Pressure 135/79 147/67 H Blood Pressure [Le ft Arm] Blood Pressure [Ri ght Upper Arm] Pulse Oximetry 98 97 94 Oxygen Delivery Me thod 09/06/23 18:30 09/06/23 18:42 09/06/23 18:46 Temperature Pulse Rate 98 90 Pulse Rate [Pulse Oximeter] Respiratory Rate Blood Pressure 137/68 Blood Pressure [Le ft Arm] Blood Pressure [Ri ght Upper Arm] Pulse Oximetry 97 94 Oxygen Delivery Me thod 09/06/23 19:00 09/06/23 19:02 09/06/23 19:07 Temperature Pulse Rate 87 88 Pulse Rate [Pulse Oximeter] Respiratory Rate 18 Blood Pressure 146/72 H Blood Pressure [Le ft Arm] Blood Pressure [Ri ght Upper Arm] Pulse Oximetry 95 95 Oxygen Delivery Me thod 09/06/23 20:33 09/06/23 23:00 09/06/23 23:00 Temperature 99.2 F Pulse Rate 67 Pulse Rate [Pulse Oximeter] 92 Respiratory Rate 20 20 Blood Pressure Blood Pressure [Le ft Arm] 148/88 H Blood Pressure [Ri ght Upper Arm] Pulse Oximetry 94 94 Oxygen Delivery Me thod Room Air Room Air 09/07/23 01:04 09/07/23 03:09 Temperature 97.5 F L 97.7 F Pulse Rate Pulse Rate [Pulse Oximeter] 92 74 Respiratory Rate 20 20 Blood Pressure Blood Pressure [Le ft Arm] 113/61 138/72 Blood Pressure [Ri ght Upper Arm] Pulse Oximetry 94 94 Oxygen Delivery Me thod Room Air Room Air Labs Labs: Laboratory Results - last 24 hr 09/06/23 09/06/23 09/06/23 17:56 17:58 20:39 WBC 9.31 RBC 3.81 L Hgb 12.8 Hct 38.7 MCV 102 H MCH 34 MCHC 33 RDW Coeff of Ludy 12.9 Plt Count 167 Neut % (Auto) 86.6 H Lymph % (Auto) 5.3 L [place] % (Auto) 7.8 Eos % (Auto) 0.0 Baso % (Auto) 0.0 Neut # (Auto) 8.10 H Lymph # (Auto) 0.50 L [place] # (Auto) 0.70 Eos # (Auto) 0.00 Baso # (Auto) 0.00 Abs Immat Gran (auto) 0.03 Imm/Tot Granulo (auto) 0.3 INR 1.01 APTT 29 VBG pH 7.407 VBG pCO2 41 VBG pO2 < 30.1 VBG HCO3 26 Sodium 135 Potassium 4.0 Chloride 105 Carbon Dioxide 23 Anion Gap 7 BUN 43 H Creatinine 0.6 Estimated GFR 91 Glucose 121 H Lactate 2.4 H 1.7 Calcium 8.5 Total Bilirubin 0.8 Direct Bilirubin 0.3 AST 158 H ALT 58 H Alkaline Phosphatase 66 Total Creatine Kinase 5724 H Troponin I 0.32 H* 0.28 H* C-Reactive Protein 4.0 H NT-Pro-B Natriuret Pep 3670 Total Protein 7.1 Albumin 3.9 Amylase 64 SARS-CoV-2 (PCR) POSITIVE SARS-CoV-2 A Influenza Type A (PCR) Negative PCR FLU A Influenza Type B (PCR) Negative PCR FLU B RSV (PCR) Negative PCR RSV 09/07/23 06:43 WBC RBC Hgb Hct MCV MCH MCHC RDW Coeff of [place] Plt Count Neut % (Auto) Lymph % (Auto) [place] % (Auto) Eos % (Auto) Baso % (Auto) Neut # (Auto) Lymph # (Auto) [place] # (Auto) Eos # (Auto) Baso # (Auto) Abs Immat Gran (auto) Imm/Tot Granulo (auto) INR APTT VBG pH 7.435 H VBG pCO2 37 L VBG pO2 30.9 VBG HCO3 25 Sodium Potassium Chloride Carbon Dioxide Anion Gap BUN Creatinine Estimated GFR Glucose Lactate Calcium Total Bilirubin Direct Bilirubin AST ALT Alkaline Phosphatase Total Creatine Kinase Troponin I C-Reactive Protein NT-Pro-B Natriuret Pep Total Protein Albumin Amylase SARS-CoV-2 (PCR) Influenza Type A (PCR) Influenza Type B (PCR) RSV (PCR)
[2023-09-07 07:12] LABS: Hematocrit 32.5 % (33.0-51.0); Hemoglobin* 10.9 gm/dL (12.0-16.0); Mean Corpuscular HGB Conc 34 gm/dL (32-36); Mean Corpuscular Hemoglobin 34 pg (26-34); Mean Corpuscular Volume 102 fL (80-100); Platelet Count* 144 K/uL (140-440); Red Blood Count 3.19 m/uL (4.00-5.20); White Blood Count* 7.49 K/uL (4.50-11.00)
[2023-09-07 07:19] LABS: Slide Review Reflex No
[2023-09-07 07:20] LABS: Magnesium* 2.4 mg/dL (1.5-2.6)
[2023-09-07 07:23] LABS: C Reactive Protein* 5.2 mg/dL (0.5-1.0)
[2023-09-07 07:33] LABS: Troponin I* 0.21 ng/mL (0.01-0.04)
[2023-09-07 07:49] LABS: Creatine Kinase* 4369 U/L (41-117)
--- NOTE | 2023-09-07 07:58 | PC.NURSE ---
Pt is oriented to self only. Pt has difficulties with following commands/directions and needs frequent prompting. Pt denies pain, chest pain, and N/V. VSS. Pt had x2 moderate to large loose bms overnight. Pt is incontinent of urine, straight catheter was used to obtain urine sample. Pt had right facial droop noted but pt?s facial movements and histology technician strengths were equal bilaterally. Pt has bruise to right hip and right occipital. ?Pt was turned and repositioned throughout night. ?
[2023-09-07] MEDS: ENOXAPARIN 60 MG/0.6 ML INJ SUBCUT (09:17)
[2023-09-07] MEDS: ACETAMINOPHEN 325 MG TABLET 650 MG PO ×3 (09:18→18:52)
[2023-09-07] MEDS: CLOPIDOGREL 75 MG TABLET PO (09:18)
[2023-09-07] MEDS: METOPROLOL TARTRATE 25 MG TABLET 12.5 MG PO (09:18)
[2023-09-07] MEDS: ASPIRIN 81 MG TABLET EC PO (09:18)
[2023-09-07] MEDS: PANTOPRAZOLE SODIUM 40 MG INJ 80 MG IVP (09:55)
--- NOTE | 2023-09-07 11:44 | PM.ORCN ---
History of Present Illness HPI Date Seen: 09/07/23 Consult date: 09/07/23 Requesting physician: Gregg Junior Consult reason: fracture Chief complaint: Fall Narrative: Orthopedics consulted on patient after unwitnessed fall. Patient was found on her home kitchen floor by her daughter and son-in-law. Brought to [facility] ED via EMS. Patient does recall falling. It is reported that she was on the floor for numerous hours. Per staff, reported mild baseline dementia. In the ED, she was found to have right superior and inferior pubic rami fractures in addition to positive COVID and elevated troponins with normal EKG consistent with NSTEMI. Elevated CK noted as well. On visiting the patient, she states doing okay. No significant pain. Pain that she does experience is in the right deep gluteal region. She states difficult to weightbear on the right lower extremity. Per nurse and hospitalist, patient has not been able to weightbear on the right lower extremity due to pain. Using EZ stand. After speaking to the patient's daughter, delete patient has baseline dementia, but still lives alone at home. She and her were the ones that found patient on the kitchen floor. Review of Systems Narrative: No recent fevers, chills, or aches; no numbness or tingling distally PFSH [facility] Medical History Cerebrovascular accident ?I63.9 - Cerebral infarction, unspecified (ICD-10) Cerebrovascular disease ?I67.9 - Cerebrovascular disease, unspecified (ICD-10) Vitamin B12 deficiency without anemia ?E53.8 - Deficiency of other specified B group vitamins (ICD-10) Osteoarthritis of right knee ?M17.11 - Unilateral primary osteoarthritis, right knee (ICD-10) Osteoarthritis of left knee ?M17.12 - Unilateral primary osteoarthritis, left knee (ICD-10) Mild cognitive impairment ?G31.84 - Mild cognitive impairment of uncertain or unknown etiology (ICD-10) Mitral regurgitation ?I34.0 - Nonrheumatic mitral (valve) insufficiency (ICD-10) Adenomatous colon polyp ?D12.6 - Benign neoplasm of colon, unspecified (ICD-10) Ptosis of left eyelid ?H02.402 - Unspecified ptosis of left eyelid (ICD-10) Migraine ?G43.909 - Migraine, unspecified, not intractable, without status migrainosus (ICD-10) Osteoporosis ?M81.0 - Age-related osteoporosis without current pathological fracture (ICD-10) Surgical History History of blepharoplasty ?Z98.890 - Other specified postprocedural states (ICD-10) History of cataract surgery ?Z98.49 - Cataract extraction status, unspecified eye (ICD-10) History of laparoscopic cholecystectomy ?Z90.49 - Acquired absence of other specified parts of digestive tract (ICD-10) History of vaginal hysterectomy ?Z90.710 - Acquired absence of both cervix and uterus (ICD-10) Social History What is your current living situation?: I presently have a place to live Problems where you live: no known problems Problems where you live details: N/A In the past 12 months, utilities in danger of being shut off: no In past 12 months, lack of transportation kept you from medical appts, meetings, work, or getting things needed for daily living: no In the past 12 mos, have been you worried that your food would run out before you had money to buy more?: never true In the past 12 mos, the food you bought just didn't last and you didn't have money to buy more?: never true Smoking Status: Former smoker What tobacco products do you use: cigarettes Smoking quit date/years: >15 years ago Do you use any of these nicotine containing products: None Second hand tobacco smoke exposure: No How often do you have a drink containing alcohol: never How often do you have six or more drinks on one occasion: Never AUDIT-C Alcohol total score: 0 Non-prescribed substance use: denies use Caffeine: Yes (5-6 cups/day) How often does anyone, including family, friends and others, physically hurt you: never How often does anyone, including family, friends and others, insult or talk down to you: never How often does anyone, including family, friends and others, threaten you with harm: never How often does anyone, including family, friends and others, scream or curse at you: never Little interest or pleasure in doing things: not at all Feeling down, depressed, or hopeless: not at all Meds Home Medications and Allergies Home Medications Medication Instructions Recorded Confirmed Type acetaminophen 650 mg 1,300 mg PO Q12H 12/08/22 09/07/23 History tablet,extended release (Tylenol Arthritis Pain) aspirin 81 mg capsule 81 mg PO DAILY 09/07/23 09/07/23 History Allergies Allergy/AdvReac Type Severity Reaction Status Date / Time No Known Drug Allergies Allergy Verified 08/04/23 13:15 Ortho Exam Narrative Exam Narrative: General: Well-developed, well-nourished, A&Ox 3, no apparent acute distress. Pulmonary: Breathing pattern regular, even, without apparent distress or audible wheeze present. Right pelvis/right lower extremity: Patient is lying supine in bed, undergoing cardiac ultrasound Exam is overall limited due to position in bed Region of ecchymosis approximately 5 x 5 cm right inferior gluteal fold region; pain over this region palpation, no crepitus No gross hematoma development No pain with logroll of the right lower extremity Hip flexion 100? without significant pain Hip extension not performed Gentle internal and external rotation is not create significant hip pain. No abduction or adduction performed Unable to straight leg raise bilaterally 2+ Dorsalis Pedis and Posterior Tibial pulses, intact dermatomes and myotomes distally with 5/5 motor strength dorsal and plantar flexion. Const Vital Signs, click to edit/add: Vital Signs - 24 hr 09/06/23 17:10 09/06/23 17:13 09/06/23 17:49 Temperature Pulse Rate 106 H Pulse Rate [Pulse Oximeter] 98 Respiratory Rate 20 Blood Pressure Blood Pressure [Left Arm] Blood Pressure [Right Upper Arm] 100/48 L Pulse Oximetry 97 95 97 Oxygen Delivery Method Room Air 09/06/23 17:50 09/06/23 17:54 09/06/23 18:00 Temperature 97.4 F L Pulse Rate 103 H 97 Pulse Rate [Pulse Oximeter] 104 H Respiratory Rate 18 Blood Pressure 151/73 H Blood Pressure [Left Arm] Blood Pressure [Right Upper Arm] 151/73 H Pulse Oximetry 98 97 97 Oxygen Delivery Method Nasal Cannula 09/06/23 18:01 09/06/23 18:02 09/06/23 18:22 Temperature Pulse Rate 99 98 98 Pulse Rate [Pulse Oximeter] Respiratory Rate Blood Pressure 135/79 147/67 H Blood Pressure [Left Arm] Blood Pressure [Right Upper Arm] Pulse Oximetry 98 97 94 Oxygen Delivery Method 09/06/23 18:30 09/06/23 18:42 09/06/23 18:46 Temperature Pulse Rate 98 90 Pulse Rate [Pulse Oximeter] Respiratory Rate Blood Pressure 137/68 Blood Pressure [Left Arm] Blood Pressure [Right Upper Arm] Pulse Oximetry 97 94 Oxygen Delivery Method 09/06/23 19:00 09/06/23 19:02 09/06/23 19:07 Temperature Pulse Rate 87 88 Pulse Rate [Pulse Oximeter] Respiratory Rate 18 Blood Pressure 146/72 H Blood Pressure [Left Arm] Blood Pressure [Right Upper Arm] Pulse Oximetry 95 95 Oxygen Delivery Method 09/06/23 20:33 09/06/23 23:00 09/06/23 23:00 Temperature 99.2 F Pulse Rate 67 Pulse Rate [Pulse Oximeter] 92 Respiratory Rate 20 20 Blood Pressure Blood Pressure [Left Arm] 148/88 H Blood Pressure [Right Upper Arm] Pulse Oximetry 94 94 Oxygen Delivery Method Room Air Room Air 09/07/23 01:04 09/07/23 03:09 09/07/23 07:00 Temperature 97.5 F L 97.7 F 98.5 F Pulse Rate Pulse Rate [Pulse Oximeter] 92 74 77 Respiratory Rate 20 20 18 Blood Pressure Blood Pressure [Left Arm] 113/61 138/72 157/69 H Blood Pressure [Right Upper Arm] Pulse Oximetry 94 94 94 Oxygen Delivery Method Room Air Room Air Room Air 09/07/23 07:00 09/07/23 07:00 Temperature Pulse Rate Pulse Rate [Pulse Oximeter] 77 Respiratory Rate 18 18 Blood Pressure Blood Pressure [Left Arm] Blood Pressure [Right Upper Arm] Pulse Oximetry 94 Oxygen Delivery Method Room Air Results Labs Labs: Laboratory Results - last 48 hr 09/06/23 09/06/23 09/06/23 17:56 17:58 20:39 WBC 9.31 RBC 3.81 L Hgb 12.8 Hct 38.7 MCV 102 H MCH 34 MCHC 33 RDW Coeff of Ludy 12.9 Plt Count 167 Neut % (Auto) 86.6 H Lymph % (Auto) 5.3 L [place] % (Auto) 7.8 Eos % (Auto) 0.0 Baso % (Auto) 0.0 Neut # (Auto) 8.10 H Lymph # (Auto) 0.50 L [place] # (Auto) 0.70 Eos # (Auto) 0.00 Baso # (Auto) 0.00 Abs Immat Gran (auto) 0.03 Imm/Tot Granulo (auto) 0.3 INR 1.01 APTT 29 VBG pH 7.407 VBG pCO2 41 VBG pO2 < 30.1 VBG HCO3 26 Sodium 135 Potassium 4.0 Chloride 105 Carbon Dioxide 23 Anion Gap 7 BUN 43 H Creatinine 0.6 Estimated GFR 91 Glucose 121 H Lactate 2.4 H 1.7 Calcium 8.5 Magnesium Total Bilirubin 0.8 Direct Bilirubin 0.3 AST 158 H ALT 58 H Alkaline Phosphatase 66 Total Creatine Kinase 5724 H Troponin I 0.32 H* 0.28 H* C-Reactive Protein 4.0 H NT-Pro-B Natriuret Pep 3670 Total Protein 7.1 Albumin 3.9 Amylase 64 SARS-CoV-2 (PCR) POSITIVE SARS-CoV-2 A Influenza Type A (PCR) Negative PCR FLU A Influenza Type B (PCR) Negative PCR FLU B RSV (PCR) Negative PCR RSV 09/07/23 06:43 WBC 7.49 RBC 3.19 L Hgb 10.9 L Hct 32.5 L MCV 102 H MCH 34 MCHC 34 RDW Coeff of Ludy Plt Count 144 Neut % (Auto) Lymph % (Auto) [place] % (Auto) Eos % (Auto) Baso % (Auto) Neut # (Auto) Lymph # (Auto) [place] # (Auto) Eos # (Auto) Baso # (Auto) Abs Immat Gran (auto) Imm/Tot Granulo (auto) INR APTT VBG pH 7.435 H VBG pCO2 37 L VBG pO2 30.9 VBG HCO3 25 Sodium Potassium Chloride Carbon Dioxide Anion Gap BUN Creatinine Estimated GFR Glucose Lactate Calcium Magnesium 2.4 Total Bilirubin Direct Bilirubin AST ALT Alkaline Phosphatase Total Creatine Kinase 4369 H Troponin I 0.21 H* C-Reactive Protein 5.2 H NT-Pro-B Natriuret Pep Total Protein Albumin Amylase SARS-CoV-2 (PCR) Influenza Type A (PCR) Influenza Type B (PCR) RSV (PCR) Diagnostic results Additional Comments: AP view pelvis ordered but [facility] dated 09/06/2023. These images were reviewed and corroborated with the radiology report showing comminuted, displaced, right laterally translated superior and inferior pubic rami fractures. Pubic symphysis appears to be intact. Moderate joint space narrowing of the left hip. With cystic changes and osteophytosis. No additional fractures or interosseous pathology noted. Assessment and Plan Assessment and plan (1) Fall: Problem comment: - 09/06/2023: found on floor of her kitchen, possibly on floor for 24-36 hours - Orthopedic surgery consult given fracture of R superior/inferior pubic rami - PT and OT following Status: Acute Total time spent: Total time spent is greater than 50% in coordination of care (as documented) at patient's floor/unit and/or counseling patient: (2) Pubic ramus fracture: Problem comment: - 09/06/2023: Right superior and inferior pubic rami fxs s/p unwitnessed fall - Ortho consult Status: Acute Assessment and Plan: We had a thorough discussion regarding pathology. I also spoke with patient's daughter and son-in-law. While we appreciate the displacement and comminution of this superior and inferior pubic rami fracture, remaining the non operative route is prudent at this time. This includes medications for pain management PT/OT for consult, and protected weight-bearing right lower extremity. I appreciate that patient has a difficult time weight-bearing on this right lower extremity at this time due to pain. Thus, assistance with transfers is important. She is already on enoxaparin due to NSTEMI, which provides DVT protection as well. Since she is mostly in bed or in chair, would recommend SCDs. Informed patient that this will take a few weeks to improve discomfort chong, but numerous months to heal the fracture. States understanding. Per daughter, patient has end-stage bilateral knee osteoarthritis. If her knees become an issue causing delay in her progress post pelvic fracture, we could consider corticosteroid injection bilateral knees. We are happy to see patient in outpatient setting once discharged from hospital. She will likely need SNF placement for rehab due to pelvic fracture. If she follows up with us in clinic, would recommend inlet and outlet views of the pelvis, in addition to AP pelvis view. Thank you for allowing us to participate in the patient's care. Total time spent: Total time spent is greater than 50% in coordination of care (as documented) at patient's floor/unit and/or counseling patient: (3) Traumatic rhabdomyolysis: Problem comment: - 09/06/2023: CK 5,300; monitor CK and renal function - NS IV bolus and maintenance 125 ml/hr, following CK Status: Acute Total time spent: Total time spent is greater than 50% in coordination of care (as documented) at patient's floor/unit and/or counseling patient: (4) Elevated BUN: Problem comment: - noted on 09/06, increased from 23-->43, creatinine unchanged - Hgb dropped from 12.8-->10.9, will follow Hgb, add PPI, Hemoccult stool Status: Acute Total time spent: Total time spent is greater than 50% in coordination of care (as documented) at patient's floor/unit and/or counseling patient: (5) Non-ST elevation myocardial infarction (NSTEMI): Problem comment: - 09/06/2023 @ 1800: No symptoms, Trop-I 0.32, no ECG infarct or ischemic changes - Rx: O2, ASA 81 mg, clopidogrel 300 mg once then 75 mg po qd, enoxaparin 1 mg/kg q 12 hours, metoprolol tartrate 12.5 mg po bid, atorvastatin 10 mg qHS - monitor on telemetry, serial ECGs, ECHO, trop-I - 09/07/23: chest pain free - consider angiogram if warranted - patient and family are agreeable to further Cardiac intervention if needed Status: Acute Total time spent: Total time spent is greater than 50% in coordination of care (as documented) at patient's floor/unit and/or counseling patient: (6) COVID: Problem comment: - diagnosed 09/06/23 - Remdesivir x 3 days - precautions Status: Acute Total time spent: Total time spent is greater than 50% in coordination of care (as documented) at patient's floor/unit and/or counseling patient: (7) Mild cognitive impairment: Problem comment: - MoCA with OT early 2023 - Mini cog testing is 1 of 5 with abnormal clock face drawing (she missed 2 of the words on recall, and the clock numbers were slightly off, and the hand were in the wrong place). She got the clock right 12/2020 and only missed 1 word 2022 Status: Acute Total time spent: Total time spent is greater than 50% in coordination of care (as documented) at patient's floor/unit and/or counseling patient: (8) Cerebrovascular disease: Problem comment: - Diagnosed with acute/subacute infarcts and moderate chronic ischemic disease on MRI brain done 07/23 for mild cognitive impairment - formal radiology read of MRI: Impression: 1. Few small scattered foci of acute/subacute infarcts within the right posterior frontal, parietal and temporal lobes. 2. Moderate chronic ischemic microvascular disease. Status: Acute Total time spent: Total time spent is greater than 50% in coordination of care (as documented) at patient's floor/unit and/or counseling patient: (9) Vitamin B12 deficiency without anemia: Problem comment: - Vitamin B12 level modestly low at 235 without anemia, as part of evaluation for mild cognitive impairment, 06/25 - has been on oral replacement Status: Acute Total time spent: Total time spent is greater than 50% in coordination of care (as documented) at patient's floor/unit and/or counseling patient:
--- NOTE | 2023-09-07 11:56 | RESP.RT ---
Patient seen today by RT. Patient in bed. SpO2 94% on room air. No shortness of breath noted. Patient given IS instruction and education. Patient demonstrated good understanding of how and why to use incentive spirometer.
[2023-09-07 12:04] LABS: Appearance Urine Slightly Cloudy (Clear); Bilirubin Urine 1+ (Negative); Blood Urine 2+ (Negative); Color Urine Dark yellow (Yellow); Glucose Urine Negative (Negative); Ketones Urine 1+ (Negative); Leukocyte Esterase Urine Trace (Negative); Nitrite Urine Negative (Negative); Protein Urine 2+ (Negative); Specific Gravity Urine 1.025 (1.000-1.030); Urobilinogen Urine 0.2 (0.2-1.0); pH Urine 5.5 (5.0-8.5)
[2023-09-07 12:21] LABS: Amorphous Sediment Urine Few; Bacteria Urine Moderate; Squamous Epithelial Cell Urine Moderate (None-Few); WBC Urine 25-50 (0-5)
[2023-09-07 14:55] LABS: Hemoglobin* 10.6 gm/dL (12.0-16.0)
--- NOTE | 2023-09-07 15:53 | PC.NURSE ---
End of Shift: Patient pleasant and cooperative, alert, oriented to self only. VSS, afebrile. SpO2 maintained above 90% on RA. Patient denies pain this shift.?Patient uses EZ stand for transfers within room, patient able to follow queuing and participated in use of EZ stand.
[2023-09-07 16:02] LABS: Creatine Kinase* 4121 U/L (41-117)
[2023-09-07] MEDS: SODIUM CHLORIDE 0.9 % (FLUSH) 10 ML SYRINGE 5 ML IVF (21:54)
--- NOTE | 2023-09-07 22:52 | PC.NURSE ---
End of shift [id number] - Pt alert, oriented to self. Disoriented to time, place, situation. Pt able to use call light to indicate need for bathroom, but experienced instances of incontinence with bowels and bladder during shift. Tolerating RA, regular diet, fluids. Denies pain, SOB, nausea, dizziness. Pt tolerating EZ stand for transport, needs minor direction to use safely. Family at bedside. Pt observed to sleep during shift, appears to be resting comfortably in bed at end of shift.
[2023-09-08] VITALS (9 sets, daily range): BP systolic 104–122; BP diastolic 42–58; PULSE 69–87; RESP 16–20; TEMP 36.3–36.8; O2SAT 95–99
[2023-09-08 06:53] LABS: Basophils Absolute Auto 0.02 K/uL (0.00-0.30); Basophils Percent Auto 0.3 % (0.0-3.0); Eosinophils Absolute Auto 0.01 K/uL (0.00-0.50); Eosinophils Percent Auto 0.1 % (0.0-7.0); Hematocrit 27.3 % (33.0-51.0); Hemoglobin* 9.1 gm/dL (12.0-16.0); Immature Granulocytes Abs Auto 0.04 K/uL (0.00-0.30); Immature Granulocytes Pct Auto 0.6 %; Lymphocytes Percent Auto 15.3 % (20-44); Mean Corpuscular HGB Conc 33 gm/dL (32-36); Mean Corpuscular Hemoglobin 34 pg (26-34); Mean Corpuscular Volume 102 fL (80-100); Monocytes Percent Auto 8.9 % (0.0-11.0); Neutrophils Percent Auto 74.8 % (42.0-72.0); Platelet Count* 143 K/uL (140-440); RDW Coefficient of Variation % 13.2 % (11.5-15.5); Red Blood Count 2.67 m/uL (4.00-5.20); White Blood Count* 7.07 K/uL (4.50-11.00)
[2023-09-08 06:56] LABS: Fecal Occult Blood* Positive (Negative)
[2023-09-08 07:01] LABS: Albumin* 2.9 g/dL (3.3-5.0); Chloride* 109 mmol/L (96-114); Sodium* 135 mmol/L (135-149)
[2023-09-08 07:03] LABS: Slide Review Reflex No
[2023-09-08 07:04] LABS: Alanine Aminotransferase* 55 U/L (4-35); Alkaline Phosphatase* 51 U/L (40-150); Aspartate Amino Transferase* 114 U/L (12-35); Bilirubin Total* 0.7 mg/dL (0.1-1.5); Blood Urea Nitrogen* 30 mg/dL (7-30); Carbon Dioxide* 26 mmol/L (20-32); Creatinine* 0.5 mg/dL (0.5-1.5); Estimated Glomerular Filt Rate 95 ml/min; Glucose* 91 mg/dL (60-115); Total Protein* 5.5 g/dL (6.0-8.3)
[2023-09-08 07:05] LABS: Calcium* 7.7 mg/dL (8.4-10.6)
[2023-09-08] MEDS: OMEPRAZOLE 20 MG CAPSULE DR PO ×2 (07:05→20:53)
[2023-09-08 07:06] LABS: Potassium* 2.8 mmol/L (3.6-5.1)
[2023-09-08 07:20] LABS: Anion Gap 0 mEq/L (7-15); Creatine Kinase* 2428 U/L (41-117)
--- NOTE | 2023-09-08 07:35 | PC.NURSE ---
pt minimally cooperative. pt refused VS. pt told marketing writer to go back to bed upon entering room, not oriented to place. pt removed telemetry, marketing writer reminded pt that it was to monitor her heart, pt declined to allow marketing writer to place tele back on. pt removed IV, pt was holding the IV this AM, updated MD. When pt woke for the day she became more compliant and asked questions appropriately. pt required some direction when using the EZ stand. 1x small BM - stool sample sent to lab.
[2023-09-08] MEDS: POTASSIUM BICARB 25 MEQ EFFERVESCENT TAB 50 MEQ PO (07:53)
[2023-09-08] MEDS: ACETAMINOPHEN 325 MG TABLET 650 MG PO ×4 (10:10→20:52)
[2023-09-08] MEDS: ASPIRIN 81 MG TABLET EC PO (10:10)
[2023-09-08] MEDS: CLOPIDOGREL 75 MG TABLET PO (10:10)
[2023-09-08] MEDS: METOPROLOL TARTRATE 25 MG TABLET 12.5 MG PO ×2 (10:10→20:51)
[2023-09-08] MEDS: POTASSIUM CHLORIDE 10 MEQ CAPSULE ER 20 MEQ PO ×3 (10:20→17:04)
--- NOTE | 2023-09-08 11:37 | PM.IMPN1 ---
Progress Note: A&P Assessment and plan (1) Fall: Problem details: - 09/06/2023: found on floor of her kitchen, possibly on floor for 24-36 hours - Orthopedic surgery consult given fracture of R superior/inferior pubic rami - PT and OT following, likely will need SNF upon discharge Status: Acute (2) Pubic ramus fracture: Problem details: - 09/06/2023: Right superior and inferior pubic rami fxs s/p unwitnessed fall - Ortho aware and following Status: Acute (3) COVID: Problem details: - diagnosed 09/06/23 - Remdesivir x 3 days (received 2 doses, then self-discontinued IV) Status: Acute (4) Traumatic rhabdomyolysis: Problem details: - 09/06/2023: CK 5,300; monitor CK and renal function - NS IV bolus and maintenance 125 ml/hr, discontinued on 09/06 given improvement in CK Status: Acute (5) Acute blood loss anemia (ABLA): Problem details: - Hgb on admission: 12.8 (09/05) - Hgb 10.9, 10.6 on 09/06 - Hgb 9.1 on 09/07 - also had increased BUN without change in creatinine, + stool occult blood - on PPI, holding ASA and Plavix on 09/07, EGD ordered for 09/08 - no hematochezia, no abdominal pain, tolerating po intake Status: Acute (6) Non-ST elevation myocardial infarction (NSTEMI): Problem details: - upon admission 09/05: elevated troponin (0.32), no concerning EKG changes, no chest pain - 09/05: initiated ASA 81 mg, clopidogrel 300 mg once then 75 mg po qd, enoxaparin 1 mg/kg q 12 hours, metoprolol tartrate 12.5 mg po bid, atorvastatin 10 mg qHS - 09/07/23: remains chest pain free with down trending troponin, Enoxaparin discontinued, reassuring TTE (formal cardiology results below) - 09/08/23: concern for GI bleed so holding ASA and Clopidogrel 1. LVEF estimate 55-60%. Normal LV size and wall thickness. 2. Normal RV size and global systolic function. 3. No significant valvular abnormalities. 4. Normal PASP and RAP estimates. 5. Color Doppler suggests a possible PFO. Status: Acute (7) Mild cognitive impairment: Problem details: - history below; appears to have worsening of cognitive impairment during stay. Family aware and considering future options - MoCA with OT early 2023 - Mini cog testing is 1 of 5 with abnormal clock face drawing (she missed 2 of the words on recall, and the clock numbers were slightly off, and the hand were in the wrong place). She got the clock right 12/2020 and only missed 1 word 2022 Status: Acute (8) Cerebrovascular disease: Problem details: - Diagnosed with acute/subacute infarcts and moderate chronic ischemic disease on MRI brain done 07/23 for mild cognitive impairment - formal radiology read of MRI: Impression: 1. Few small scattered foci of acute/subacute infarcts within the right posterior frontal, parietal and temporal lobes. 2. Moderate chronic ischemic microvascular disease. Status: Acute (9) Vitamin B12 deficiency without anemia: Problem details: - Vitamin B12 level modestly low at 235 without anemia, as part of evaluation for mild cognitive impairment, 06/25 - has been on oral replacement Status: Acute Plan - per above - daughter and son-in-law updated at bedside, questions answered Subjective Date Seen: 09/08/23 Interval history: Samreen was admitted to the hospital last night after a fall at home with unknown downtime. She was found to have rhabdomyolysis, elevated troponin, + COVID. Imaging revealed R superior and inferior pubic rami fractures. Notable findings in the last 24 hours: - Samreen self-discontinued her IV overnight - remains stable on RA - TTE results reassuring - Hemoglobin down to 9.1 (was 12.8 on admission) - POSITIVE stool occult blood This morning, Samreen is feeling good. She has no concerns for the hospitalist team. She has no abdominal pain, has not noted any nausea or gastritis, tolerating po intake. She also specifically denies chest pain or dyspnea. Exam Narrative: Exam Narrative: GEN: Alert and sitting comfortably in bedside chair, having coffee and a cookie HEENT: EOMIs bilaterally, no scleral icterus CV: RRR, No concerning murmurs R: LCTA bilaterally without concerning wheezing Ext: wwp, no concerning edema Skin: No concerning skin lesions or rashes on exposed skin Psych: Cognitive impairment is evident, no agitation Const: Vital Signs, click to edit/add: Vital Signs - 24 hr 09/07/23 11:55 09/07/23 18:19 09/07/23 18:21 Temperature Pulse Rate Pulse Rate [Pulse Oximeter] 63 Respiratory Rate 20 16 Blood Pressure [Le ft Arm] 132/76 Blood Pressure [Ri ght Arm] Pulse Oximetry 95 95 Oxygen Delivery Me thod Room Air Room Air Room Air 09/07/23 19:57 09/07/23 21:02 09/07/23 23:00 Temperature Pulse Rate 73 64 Pulse Rate [Pulse Oximeter] 73 Respiratory Rate 20 Blood Pressure [Le ft Arm] 128/64 Blood Pressure [Ri ght Arm] Pulse Oximetry 94 Oxygen Delivery Hi thod Room Air 09/07/23 23:00 09/07/23 23:00 09/08/23 03:00 Temperature Pulse Rate Pulse Rate [Pulse Oximeter] 87 Respiratory Rate 20 20 20 Blood Pressure [Le ft Arm] Blood Pressure [Ri ght Arm] Pulse Oximetry Oxygen Delivery Hi thod Room Air 09/08/23 07:00 09/08/23 08:47 09/08/23 08:50 Temperature Pulse Rate 79 Pulse Rate [Pulse Oximeter] Respiratory Rate 18 Blood Pressure [Le ft Arm] Blood Pressure [Ri ght Arm] Pulse Oximetry 99 Oxygen Delivery Hi thod Room Air 09/08/23 08:59 09/08/23 11:00 Temperature 97.6 F 97.7 F Pulse Rate Pulse Rate [Pulse Oximeter] 87 81 Respiratory Rate 18 16 Blood Pressure [Le ft Arm] Blood Pressure [Ri ght Arm] 113/58 L 114/53 L Pulse Oximetry 99 98 Oxygen Delivery Hi thod Room Air Room Air Labs Labs: Laboratory Results - last 24 hr 09/06/23 09/07/23 09/08/23 17:13 14:48 06:28 WBC 7.07 RBC 2.67 L Hgb 10.6 L 9.1 L Hct 27.3 L MCV 102 H MCH 34 MCHC 33 RDW Coeff of Ludy 13.2 Plt Count 143 Neut % (Auto) 74.8 H Lymph % (Auto) 15.3 L [place] % (Auto) 8.9 Eos % (Auto) 0.1 Baso % (Auto) 0.3 Neut # (Auto) 5.30 Lymph # (Auto) 1.10 [place] # (Auto) 0.60 Eos # (Auto) 0.01 Baso # (Auto) 0.02 Abs Immat Gran (auto) 0.04 Imm/Tot Granulo (auto) 0.6 Sodium 135 Potassium 2.8 L* Chloride 109 Carbon Dioxide 26 Anion Gap 0 L BUN 30 Creatinine 0.5 Estimated GFR 95 Glucose 91 Calcium 7.7 L Total Bilirubin 0.7 AST 114 H ALT 55 H Alkaline Phosphatase 51 Total Creatine Kinase 4121 H 2428 H Total Protein 5.5 L Albumin 2.9 L Urine Color Dark yellow Urine Appearance Slightly Cloudy A Urine pH 5.5 Ur Specific [place] 1.025 Urine Protein 2+ A Urine Glucose (UA) Negative Urine Ketones 1+ A Urine Blood 2+ A Urine Nitrite Negative Urine Bilirubin 1+ A Urine Urobilinogen 0.2 Ur Leukocyte Esterase Trace A Urine RBC 5-10 A Urine WBC 25-50 A Ur Squamous Epith Cells Moderate A Amorphous Sediment Few A Urine Bacteria Moderate A Stool Occult Blood 09/08/23 06:45 WBC RBC Hgb Hct MCV MCH MCHC RDW Coeff of Ludy Plt Count Neut % (Auto) Lymph % (Auto) [place] % (Auto) Eos % (Auto) Baso % (Auto) Neut # (Auto) Lymph # (Auto) [place] # (Auto) Eos # (Auto) Baso # (Auto) Abs Immat Gran (auto) Imm/Tot Granulo (auto) Sodium Potassium Chloride Carbon Dioxide Anion Gap BUN Creatinine Estimated GFR Glucose Calcium Total Bilirubin AST ALT Alkaline Phosphatase Total Creatine Kinase Total Protein Albumin Urine Color Urine Appearance Urine pH Ur Specific [place] Urine Protein Urine Glucose (UA) Urine Ketones Urine Blood Urine Nitrite Urine Bilirubin Urine Urobilinogen Ur Leukocyte Esterase Urine RBC Urine WBC Ur Squamous Epith Cells Amorphous Sediment Urine Bacteria Stool Occult Blood Positive A
--- NOTE | 2023-09-08 13:20 | PC.SOCIAL ---
Discharge planning- Phone call to pt's daughter Jose to discuss discharge plans. Pt's daughter Jose and her Sylvester are in the room with pt and spoke with medical technical writer on speak phone, so pt could hear conversation. Pt does not have any services in the home. Pt has PT/OT outpatient. Pt does not drive, so pt's daughter and her provide transportation to appointments. Pt's daughter informs that her and her check-in with pt 2-3 times a week. Pt provides her own ADL's (pt has grab bars and a walk-in shower), cleaning services, and pt orders her own food from [email or web address] orders and delivery. Pt's daughter is interested in information on Meals on Wheels. Discussed therapy recommendation for short-term rehab at senior care. Informed pt's daughter that medical technical writer will send a list of nursing homes via e-mail and requests that family respond with their top choices for SNF. Discussed that some SNF's still have their [address] to admit after a positive Covid test. Pt's first covid positive was 09/06/2023. Pt's daughters e-mail is [email or web address]. Sent e-mail providing SNF options and provided information on meals on wheels and home meal delivery options. Provided contact information for social work. Social Work will continue to follow up as needed.
[2023-09-08 14:08] LABS: Hemoglobin* 8.9 gm/dL (12.0-16.0)
[2023-09-08 14:25] LABS: Potassium* 3.6 mmol/L (3.6-5.1)
--- NOTE | 2023-09-08 19:21 | PC.NURSE ---
End of shift [id number]: Pt has been A&O, afebrile and VSS throughout the day today. TELE read SR with prolonged QT and was discontinued by MD. Pt has been incontinent of B&B all day today. Hgb trending down 9.1 > 8.9 recheck this afternoon. ASA and Plavix have been discontinued for the time being. Potassium 2.8 this AM; replaced wiht 50mEq tab x1 and 20mEq TID- recheck this afternoon was 3.6. Pt has no IV access, OK per MD. She has been compliant with cares and cooperative with staff. Plan for an EGD tomorrow morning 09/08 so patient will be NPO @ 0000. She has no c/o pain, N/V or dizziness. Pt is Ax1-2 with EZ stand for transfers. ?
[2023-09-08] MEDS: FAMOTIDINE 20 MG TABLET PO (20:52)
[2023-09-08] MEDS: ATORVASTATIN 10 MG TABLET PO (20:52)
[2023-09-09] VITALS (9 sets, daily range): BP systolic 98–141; BP diastolic 47–65; PULSE 66–70; RESP 16–18; TEMP 36.3–36.9; O2SAT 94–98
--- NOTE | 2023-09-09 06:23 | PC.NURSE ---
23-07: pleasant and cooperative. allowed all cares, VS, and assessments. no c/o pain. tolerates brief changes in bed. VSS.
[2023-09-09 06:35] LABS: Basophils Absolute Auto 0.02 K/uL (0.00-0.30); Basophils Percent Auto 0.3 % (0.0-3.0); Eosinophils Absolute Auto 0.11 K/uL (0.00-0.50); Eosinophils Percent Auto 1.7 % (0.0-7.0); Hematocrit 25.1 % (33.0-51.0); Hemoglobin* 8.3 gm/dL (12.0-16.0); Immature Granulocytes Abs Auto 0.11 K/uL (0.00-0.30); Immature Granulocytes Pct Auto 1.7 %; Lymphocytes Percent Auto 16.6 % (20-44); Mean Corpuscular HGB Conc 33 gm/dL (32-36); Mean Corpuscular Hemoglobin 34 pg (26-34); Mean Corpuscular Volume 103 fL (80-100); Monocytes Percent Auto 9.2 % (0.0-11.0); Neutrophils Absolute Auto 4.68 K/uL (1.7-7.0); Neutrophils Percent Auto 70.5 % (42.0-72.0); Platelet Count* 136 K/uL (140-440); RDW Coefficient of Variation % 13.3 % (11.5-15.5); Red Blood Count 2.43 m/uL (4.00-5.20); White Blood Count* 6.63 K/uL (4.50-11.00)
[2023-09-09 06:37] LABS: Slide Review Reflex No
[2023-09-09 06:50] LABS: Chloride* 105 mmol/L (96-114)
[2023-09-09 06:51] LABS: Albumin* 2.5 g/dL (3.3-5.0)
[2023-09-09 06:52] LABS: Potassium* 3.7 mmol/L (3.6-5.1); Sodium* 133 mmol/L (135-149)
[2023-09-09 06:54] LABS: Alanine Aminotransferase* 47 U/L (4-35); Alkaline Phosphatase* 47 U/L (40-150); Anion Gap 0 mEq/L (7-15); Aspartate Amino Transferase* 87 U/L (12-35); Bilirubin Total* 0.8 mg/dL (0.1-1.5); Blood Urea Nitrogen* 21 mg/dL (7-30); Calcium* 7.7 mg/dL (8.4-10.6); Carbon Dioxide* 28 mmol/L (20-32); Creatinine* 0.5 mg/dL (0.5-1.5); Estimated Glomerular Filt Rate 95 ml/min; Glucose* 97 mg/dL (60-115); Total Protein* 5.1 g/dL (6.0-8.3)
--- NOTE | 2023-09-09 08:44 | W.ANESCHARGE ---
Anesthesia Charges Start Date/Time Anesthesia Start Date: 10/05/23 Anesthesia Start Time: 08:24 Stop Date/Time Anesthesia Stop Date: 09/09/23 Anesthesia Stop Time: 08:42 Summary Emergency: MDA Extremes of Age - Over 70 or under 1: MDA
--- NOTE | 2023-09-09 08:45 | P.ANES_ITS ---
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
--- NOTE | 2023-09-09 08:45 | W.ANESCHARGE ---
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
[2023-09-09] MEDS: ACETAMINOPHEN 325 MG TABLET 650 MG PO ×4 (09:24→20:53)
[2023-09-09] MEDS: OMEPRAZOLE 20 MG CAPSULE DR PO ×2 (09:24→16:52)
[2023-09-09] MEDS: METOPROLOL TARTRATE 25 MG TABLET 12.5 MG PO ×2 (09:24→20:53)
[2023-09-09] MEDS: SODIUM CHLORIDE 0.9 % (FLUSH) 10 ML SYRINGE 5 ML IVF ×2 (09:44→20:54)
[2023-09-09] MEDS: CALCIUM GLUC 1,000MG/50 ML 1,000 MG/50 ML BAG 100 MG IVPB (10:50)
--- NOTE | 2023-09-09 13:48 | NUTR.NU ---
RDN with follow-up to nutrition assessment related to weight loss. Current diet is Regular. Meal intakes have been adequate, averaging 75% since admit. Snacks/Supplements order and offered, however patient has refused all. Weight on admit was 138 lbs 11.2 oz. Weight now is 151 lbs 14.4 oz. Weights obtained using bedscale. Unsure if this weight gain is true gain. RDN has attempted multiple times to visit with patient via room phone, however patient has been unavailable. No additional nutrition interventions at this time with adequate oral intake. RDN will continue to monitor.
--- NOTE | 2023-09-09 14:11 | PC.SOCIAL ---
Addendum entered by VARSHA NewsomeSW 09/09/23 14:36: Discharge planning: Based on dtr's request for placement in [place] or [place] contacted the following facilities with this listed results: 1. [facility] - secure emailed information to Mark and let her know this is dtr's first choice for placement. 2. [facility]: Called [phone] and left message requesting call back regarding bed availability. 3. [facility]: Called [phone] and spoke with CHEL Correa, who stated they do have beds and can sometimes take a COVID patient before they complete the ten days after positive diagnosis. Madeline stated it is too early for them to evaluate pt today but the information can be faxed on Tuesday to evaluate for admission to [phone]. suction worker to follow up as needed. Original Note: Discharge planning: Called and spoke with dtr regarding d/c plan. Dtr states she has looked at SNF list and thinks that [place] would be her first choice for placement and that [place] would be her second choice. Dtr lives in [place] and is hoping for placement close to her home. Dtr is aware that many nursing homes have restrictions on admissions for COVID positive patients, but is also aware social secretary will reach out to the facilities. suction worker to follow up as needed.
--- NOTE | 2023-09-09 14:52 | PM.IMPN1 ---
Progress Note: A&P Assessment and plan (1) Fall: Problem details: - 09/06/2023: found on floor of her kitchen, possibly on floor for 24-36 hours - Orthopedic surgery consult given fracture of R superior/inferior pubic rami - PT and OT following, likely will need SNF upon discharge Status: Acute (2) Acute blood loss anemia (ABLA): Problem details: - Hgb on admission: 12.8 (09/05) - Hgb 10.9, 10.6 on 09/06 - Hgb 9.1 on 09/07 - also had increased BUN without change in creatinine, + stool occult blood - on PPI, holding ASA and Plavix on 09/07, EGD ordered for 09/08 - no hematochezia, no abdominal pain, tolerating po intake - 09/08 EGD mild gastritis, no acute bleeding. Hgb 8.3 Continue PPI, continue hold ASA, plavix. I suspect with amount of change in Hgb, if anemia were due to GI bleed, gross evidence in emesis or stool would have been noted. I suspect acute blood loss anemia is likely secondary to combination of recent pelvic fracture, ecchymosis, and hemodilution from IV fluids for rhabdomyolysis. Continue to monitor hemoglobin daily. No indication for transfusion today, but may need that if hemoglobin goes below 8, she becomes symptomatic, or is persistently hypotensive. She will also need consideration of outpatient colonoscopy in the future. Also if patient becomes unstable, or hemoglobin continues to trend downward despite stopping aspirin and Plavix, she may need re-evaluation of pelvic fracture with CT looking for hematoma. Status: Acute (3) Guaiac positive stools: Problem details: - EGD unremarkable. Consider outpatient colonoscopy in the future. Status: Acute (4) COVID: Problem details: - diagnosed 09/06/23 - Remdesivir x 3 days (received 2 doses, then self-discontinued IV) Status: Acute (5) Pubic ramus fracture: Problem details: - 09/06/2023: Right superior and inferior pubic rami fxs s/p unwitnessed fall - Ortho aware and following, non operative. Recommended outpatient follow-up with inlet and outlet views, AP pelvic x-ray. Status: Acute (6) Traumatic rhabdomyolysis: Problem details: - 09/06/2023: CK 5,300; monitor CK and renal function - NS IV bolus and maintenance 125 ml/hr, discontinued on 09/06 given improvement in CK Status: Resolved (7) Non-ST elevation myocardial infarction (NSTEMI): Problem details: - upon admission 09/05: elevated troponin (0.32), no concerning EKG changes, no chest pain - 09/05: initiated ASA 81 mg, clopidogrel 300 mg once then 75 mg po qd, enoxaparin 1 mg/kg q 12 hours, metoprolol tartrate 12.5 mg po bid, atorvastatin 10 mg qHS - 09/07/23: remains chest pain free with down trending troponin, Enoxaparin discontinued, reassuring TTE (formal cardiology results below) - 09/08/23: concern for GI bleed so holding ASA and Clopidogrel 1. LVEF estimate 55-60%. Normal LV size and wall thickness. 2. Normal RV size and global systolic function. 3. No significant valvular abnormalities. 4. Normal PASP and RAP estimates. 5. Color Doppler suggests a possible PFO. - 09/08 aspirin, Plavix, Lovenox are still on hold, patient remains asymptomatic. Will consider restarting aspirin and Plavix if hemoglobins stabilize. Since she is more than 48 hours out from peak troponin, I think she would only need Lovenox for VTE prophylaxis, not therapeutic Lovenox. Status: Acute (8) Mild cognitive impairment: Problem details: - history below; appears to have worsening of cognitive impairment during stay. Family aware and considering future options - MoCA with OT early 2023 - Mini cog testing is 1 of 5 with abnormal clock face drawing (she missed 2 of the words on recall, and the clock numbers were slightly off, and the hand were in the wrong place). She got the clock right 12/2020 and only missed 1 word 2022 Status: Acute (9) Cerebrovascular disease: Problem details: - Diagnosed with acute/subacute infarcts and moderate chronic ischemic disease on MRI brain done 07/23 for mild cognitive impairment - formal radiology read of MRI: Impression: 1. Few small scattered foci of acute/subacute infarcts within the right posterior frontal, parietal and temporal lobes. 2. Moderate chronic ischemic microvascular disease. As above under non-STEMI, aspirin and Plavix and Lovenox are on hold due to acute blood loss anemia. Status: Acute (10) Vitamin B12 deficiency without anemia: Problem details: - Vitamin B12 level modestly low at 235 without anemia, as part of evaluation for mild cognitive impairment, 06/25 - has been on oral replacement Status: Acute (11) Long QT interval: Problem details: 09/07/2023 QTC 493 milliseconds Status: Acute (12) Hypocalcemia: Problem details: Replace with IV calcium gluconate and recheck in the morning Status: Acute (13) UTI (urinary tract infection): Problem details: 09/06/2023 urine culture has grown out Gram-negative rods and Gram-positive cocci, further information is pending. Status: Suspected Time Spent With Patient Total time spent: Today I spent 45 minutes rounding on the patient. Greater than 50% included discussing care with the team, the patient and her daughter reviewing data, updating and managing the care plan. Subjective Time Seen by Provider: 10:20 Date Seen: 09/09/23 Interval history: Samreen's daughter, Marta, was in the room with her today. Samreen feels pretty well all things considered. She has no concerns. We discussed recent weakness, fall, probable UTI, rhabdomyolysis, COVID, non-STEMI, pubic ramus fracture, mobility, need for rehab, acute anemia, guaiac-positive stool, results of the EGD, stroke, and low calcium. Exam Narrative: Exam Narrative: 1300 BP 111/58 General: No acute distress. Awake, alert, oriented. Mild pallor. No jaundice. Oropharynx: Clear. Mucous membranes moist. Cardiovascular: Regular rate and rhythm. No murmurs, gallops, or rubs. Respiratory: Clear to auscultation bilaterally. No wheezes or crackles. Abdomen: Bowel sounds present. Soft, nondistended, nontender. Extremities: Contusion of right hip and thigh noted, no hematoma apparent. No pedal edema. Const: Vital Signs, click to edit/add: Vital Signs - 24 hr 09/08/23 15:00 09/08/23 15:00 09/08/23 15:00 Temperature 97.4 F L Pulse Rate [Pulse Oximeter] 70 70 Respiratory Rate 16 16 16 Blood Pressure [Le ft Arm] Blood Pressure [Ri ght Arm] 112/53 L Blood Pressure [Ri ght Radial Artery] Pulse Oximetry 97 97 Oxygen Delivery Me thod Room Air Room Air 09/08/23 21:03 09/08/23 23:30 09/08/23 23:30 Temperature 97.4 F L Pulse Rate [Pulse Oximeter] 69 69 Respiratory Rate 16 18 18 Blood Pressure [Le ft Arm] 122/44 L Blood Pressure [Ri ght Arm] Blood Pressure [Ri ght Radial Artery] Pulse Oximetry 95 95 Oxygen Delivery Me thod Room Air Room Air 09/08/23 23:30 09/09/23 03:00 09/09/23 07:00 Temperature 98.2 F 97.7 F Pulse Rate [Pulse Oximeter] 69 70 69 Respiratory Rate 18 18 18 Blood Pressure [Le ft Arm] Blood Pressure [Ri ght Arm] 130/65 Blood Pressure [Ri ght Radial Artery] 104/42 L Pulse Oximetry 95 94 Oxygen Delivery Me thod Room Air Room Air 09/09/23 07:00 09/09/23 07:00 09/09/23 11:00 Temperature 97.3 F L 97.6 F Pulse Rate [Pulse Oximeter] 69 66 Respiratory Rate 18 18 18 Blood Pressure [Le ft Arm] Blood Pressure [Ri ght Arm] 127/55 L 98/47 L Blood Pressure [Ri ght Radial Artery] Pulse Oximetry 94 94 96 Oxygen Delivery Me thod Room Air Room Air Room Air Labs Labs: Laboratory Results - last 24 hr 09/09/23 06:15 WBC 6.63 RBC 2.43 L Hgb 8.3 L Hct 25.1 L MCV 103 H MCH 34 MCHC 33 RDW Coeff of Ludy 13.3 Plt Count 136 L Neut % (Auto) 70.5 Lymph % (Auto) 16.6 L [place] % (Auto) 9.2 Eos % (Auto) 1.7 Baso % (Auto) 0.3 Neut # (Auto) 4.68 Lymph # (Auto) 1.10 [place] # (Auto) 0.60 Eos # (Auto) 0.11 Baso # (Auto) 0.02 Abs Immat Gran (auto) 0.11 Imm/Tot Granulo (auto) 1.7 Sodium 133 L Potassium 3.7 Chloride 105 Carbon Dioxide 28 Anion Gap 0 L BUN 21 Creatinine 0.5 Estimated GFR 95 Glucose 97 Calcium 7.7 L Ionized Calcium Lisha 1.10 L Magnesium 2.0 Ferritin 208.0 Total Bilirubin 0.8 AST 87 H ALT 47 H Alkaline Phosphatase 47 Total Protein 5.1 L Albumin 2.5 L
[2023-09-09] MEDS: cefTRIAXone 1 GM in 0.9 % SODIUM CHLORIDE Mini-bag 100 ML IVPB (16:04)
[2023-09-09] MEDS: FAMOTIDINE 20 MG TABLET PO (20:53)
[2023-09-09] MEDS: ATORVASTATIN 10 MG TABLET PO (20:53)
[2023-09-10] VITALS (7 sets, daily range): BP systolic 108–139; BP diastolic 50–68; PULSE 62–76; RESP 18–20; TEMP 36.4–36.8; O2SAT 94–98
[2023-09-10] MEDS: OMEPRAZOLE 20 MG CAPSULE DR PO ×2 (06:03→17:24)
--- NOTE | 2023-09-10 06:28 | PC.NURSE ---
End of shift [id number]: Alert to self. VSS w/ sats >90% on RA. Denies pain. Turn and repo. Total incontinence. Reddened and blistered area on right hip. Mepilex placed. Bed alarm in place. ?
[2023-09-10 06:42] LABS: Basophils Absolute Auto 0.04 K/uL (0.00-0.30); Basophils Percent Auto 0.5 % (0.0-3.0); Eosinophils Absolute Auto 0.26 K/uL (0.00-0.50); Eosinophils Percent Auto 3.5 % (0.0-7.0); Hemoglobin* 8.9 gm/dL (12.0-16.0); Immature Granulocytes Pct Auto 2.7 %; Lymphocytes Percent Auto 15.4 % (20-44); Mean Corpuscular HGB Conc 34 gm/dL (32-36); Mean Corpuscular Hemoglobin 36 pg (26-34); Mean Corpuscular Volume 104 fL (80-100); Monocytes Percent Auto 7.6 % (0.0-11.0); Neutrophils Absolute Auto 5.21 K/uL (1.7-7.0); Neutrophils Percent Auto 70.3 % (42.0-72.0); Platelet Count* 190 K/uL (140-440); RDW Coefficient of Variation % 13.4 % (11.5-15.5); Slide Review Reflex No; White Blood Count* 7.41 K/uL (4.50-11.00)
[2023-09-10 07:05] LABS: Chloride* 105 mmol/L (96-114); Potassium* 3.6 mmol/L (3.6-5.1); Sodium* 134 mmol/L (135-149)
[2023-09-10 07:08] LABS: Creatinine* 0.5 mg/dL (0.5-1.5); Estimated Glomerular Filt Rate 95 ml/min
[2023-09-10 07:09] LABS: Anion Gap -1 mEq/L (7-15); Blood Urea Nitrogen* 15 mg/dL (7-30); Calcium* 7.8 mg/dL (8.4-10.6); Carbon Dioxide* 30 mmol/L (20-32); Glucose* 101 mg/dL (60-115)
[2023-09-10 07:12] LABS: C Reactive Protein* 5.1 mg/dL (0.5-1.0)
[2023-09-10] MEDS: ACETAMINOPHEN 325 MG TABLET 650 MG PO ×4 (09:39→21:31)
[2023-09-10] MEDS: METOPROLOL TARTRATE 25 MG TABLET 12.5 MG PO ×2 (09:39→21:32)
[2023-09-10] MEDS: SODIUM CHLORIDE 0.9 % (FLUSH) 10 ML SYRINGE 5 ML IVF ×2 (09:41→21:34)
[2023-09-10] MEDS: CALCIUM GLUC 1,000MG/50 ML 1,000 MG/50 ML BAG 100 MG IVPB ×2 (09:42→11:13)
--- NOTE | 2023-09-10 10:45 | PM.IMPN1 ---
Progress Note: A&P Assessment and plan (1) Fall: Problem details: - 09/06/2023: found on floor of her kitchen, possibly on floor for 24-36 hours - Orthopedic surgery consult given fracture of R superior/inferior pubic rami - PT and OT following, likely will need SNF upon discharge Status: Acute (2) Acute blood loss anemia (ABLA): Problem details: - Hgb on admission: 12.8 (09/05) - Hgb 10.9, 10.6 on 09/06 - Hgb 9.1 on 09/07 - also had increased BUN without change in creatinine, + stool occult blood - on PPI, holding ASA and Plavix on 09/07, EGD ordered for 09/08 - no hematochezia, no abdominal pain, tolerating po intake - 09/08 EGD mild gastritis, no acute bleeding. Hgb 8.3 Continue PPI, continue hold ASA, plavix. I suspect with amount of change in Hgb, if anemia were due to GI bleed, gross evidence in emesis or stool would have been noted. I suspect acute blood loss anemia is likely secondary to combination of recent pelvic fracture, ecchymosis, and hemodilution from IV fluids for rhabdomyolysis. Continue to monitor hemoglobin daily. No indication for transfusion today, but may need that if hemoglobin goes below 8, she becomes symptomatic, or is persistently hypotensive. She will also need consideration of outpatient colonoscopy in the future. Also if patient becomes unstable, or hemoglobin continues to trend downward despite stopping aspirin and Plavix, she may need re-evaluation of pelvic fracture with CT looking for hematoma. - 09/09 hemoglobin stable at 8.9. Patient is a little stronger today. BP remains soft. Will restart aspirin and Plavix tomorrow, continue to follow hemoglobins. I will hold off on restarting Lovenox. I do not think she needs therapeutic Lovenox this far out from the acute events of non-STEMI and stroke, and I think triple therapy with aspirin, Plavix, and Lovenox is high risk for rebleeding for her. At some point I think she should have low-dose Lovenox for VTE prophylaxis, but will restart aspirin and Plavix 1st as I believe these would have the most benefit for her in this acute setting. Status: Acute (3) Guaiac positive stools: Problem details: - EGD unremarkable. Consider outpatient colonoscopy in the future. Status: Acute (4) COVID: Problem details: - diagnosed 09/06/23 - Remdesivir x 3 days (received 2 doses, then self-discontinued IV) Status: Acute (5) Pubic ramus fracture: Problem details: - 09/06/2023: Right superior and inferior pubic rami fxs s/p unwitnessed fall - Ortho aware and following, non operative. Recommended outpatient follow-up with inlet and outlet views, AP pelvic x-ray. - at some point she will need VTE prophylaxis with low-dose Lovenox, but I think that restarting aspirin and Plavix for acute coronary syndrome and acute stroke are the priority at this time. Status: Acute (6) Traumatic rhabdomyolysis: Problem details: - 09/06/2023: CK 5,300; monitor CK and renal function - NS IV bolus and maintenance 125 ml/hr, discontinued on 09/06 given improvement in CK Status: Resolved (7) Non-ST elevation myocardial infarction (NSTEMI): Problem details: - upon admission 09/05: elevated troponin (0.32), no concerning EKG changes, no chest pain - 09/05: initiated ASA 81 mg, clopidogrel 300 mg once then 75 mg po qd, enoxaparin 1 mg/kg q 12 hours, metoprolol tartrate 12.5 mg po bid, atorvastatin 10 mg qHS - 09/07/23: remains chest pain free with down trending troponin, Enoxaparin discontinued, reassuring TTE (formal cardiology results below) - 09/08/23: concern for GI bleed so holding ASA and Clopidogrel 1. LVEF estimate 55-60%. Normal LV size and wall thickness. 2. Normal RV size and global systolic function. 3. No significant valvular abnormalities. 4. Normal PASP and RAP estimates. 5. Color Doppler suggests a possible PFO. - 09/08 aspirin, Plavix, Lovenox are still on hold, patient remains asymptomatic. Will consider restarting aspirin and Plavix if hemoglobins stabilize. Since she is more than 48 hours out from peak troponin, I think she would only need Lovenox for VTE prophylaxis, not therapeutic Lovenox. - 09/09 restart aspirin and Plavix tomorrow morning. Continue to monitor hemoglobin. No further therapeutic Lovenox. Status: Acute (8) Mild cognitive impairment: Problem details: - history below; appears to have worsening of cognitive impairment during stay. Family aware and considering future options - MoCA with OT early 2023 - Mini cog testing is 1 of 5 with abnormal clock face drawing (she missed 2 of the words on recall, and the clock numbers were slightly off, and the hand were in the wrong place). She got the clock right 12/2020 and only missed 1 word 2022 Status: Acute (9) Cerebrovascular disease: Problem details: - Diagnosed with acute/subacute infarcts and moderate chronic ischemic disease on MRI brain done 07/23 for mild cognitive impairment - formal radiology read of MRI: Impression: 1. Few small scattered foci of acute/subacute infarcts within the right posterior frontal, parietal and temporal lobes. 2. Moderate chronic ischemic microvascular disease. As above under non-STEMI, aspirin and Plavix and Lovenox are on hold due to acute blood loss anemia. Restarting aspirin and Plavix tomorrow as above. Status: Acute (10) Vitamin B12 deficiency without anemia: Problem details: - Vitamin B12 level modestly low at 235 without anemia, as part of evaluation for mild cognitive impairment, 06/25 - has been on oral replacement Status: Acute (11) Long QT interval: Problem details: 09/07/2023 QTC 493 milliseconds Status: Acute (12) Hypocalcemia: Problem details: Continue to replace with IV calcium gluconate and recheck in the morning Status: Acute (13) UTI (urinary tract infection): Problem details: 09/06/2023 urine culture has grown out group B strep agalactiae and Klebsiella pneumoniae, this is sensitive to ceftriaxone which she started yesterday. Will treat with 3 days of levofloxacin for an uncomplicated UTI. Status: Suspected Time Spent With Patient Total time spent: Today I spent 25 minutes rounding on the patient. Greater than 50% included discussing care with the team, reviewing data, updating and managing the care plan. Subjective Time Seen by Provider: 09:09 Date Seen: 09/10/23 Interval history: Samreen is feeling a bit better today. When I walked in she was working with therapies and standing at the vanity at her bedside. The therapist told me that she had been standing there with their help for 6 minutes. This is a big improvement from yesterday when she was not even able to sit forward in her bed without help. Her daughters were not in the room, but they were around the corner in the waiting room. I found them and talked with both Rossy and Jose. We discussed how she is making some improvements, but she will need at least acute rehab and possibly long-term assisted living. Her daughters seemed aware of this and were already thinking about that and looking for places for her to go. They noted that they were working with our sr. social media & mobile manager. We also discussed restarting aspirin and Plavix today since her hemoglobin was stable. Her daughters were agreeable with this plan. Exam Narrative: Exam Narrative: General: No acute distress. Awake, alert, oriented. Mild pallor. No jaundice. Standing at the vanity at bedside with the bed immediately behind her and an occupational therapist and physical therapist, 1 on each side of her holding her arm steady. Oropharynx: Clear. Mucous membranes moist. Cardiovascular: Regular rate and rhythm. No murmurs, gallops, or rubs. Respiratory: Clear to auscultation bilaterally. No wheezes or crackles. Abdomen: Bowel sounds present. Soft, nondistended, nontender. Extremities: Contusion of right hip and thigh noted, bandaged with Mepilex. no hematoma apparent. No pedal edema. Const: Vital Signs, click to edit/add: Vital Signs - 24 hr 09/09/23 11:00 09/09/23 13:00 09/09/23 15:00 Temperature 97.6 F Pulse Rate [Pulse Oximeter] 66 68 Respiratory Rate 18 18 18 Blood Pressure [Le ft Arm] Blood Pressure [Ri ght Arm] 98/47 L 111/58 L Pulse Oximetry 96 97 96 Oxygen Delivery Me thod Room Air Room Air Room Air 09/09/23 15:00 09/09/23 15:00 09/09/23 19:45 Temperature 98.4 F 97.4 F L Pulse Rate [Pulse Oximeter] 68 68 68 Respiratory Rate 18 18 16 Blood Pressure [Le ft Arm] Blood Pressure [Ri ght Arm] 112/57 L 124/57 L Pulse Oximetry 96 98 Oxygen Delivery Me thod Room Air Room Air 09/09/23 23:12 09/09/23 23:14 09/09/23 23:15 Temperature 97.7 F Pulse Rate [Pulse Oximeter] 67 Respiratory Rate 16 16 16 Blood Pressure [Le ft Arm] Blood Pressure [Ri ght Arm] 141/65 H Pulse Oximetry 96 96 Oxygen Delivery Me thod Room Air Room Air 09/10/23 03:00 09/10/23 07:00 Temperature 97.5 F L 98.2 F Pulse Rate [Pulse Oximeter] 72 71 Respiratory Rate 18 18 Blood Pressure [Le ft Arm] 119/63 Blood Pressure [Ri ght Arm] 129/54 L Pulse Oximetry 94 94 Oxygen Delivery Me thod Room Air Room Air Labs Labs: Laboratory Results - last 24 hr 09/10/23 06:20 WBC 7.41 RBC 2.50 L Hgb 8.9 L Hct 26.0 L MCV 104 H MCH 36 H MCHC 34 RDW Coeff of Ludy 13.4 Plt Count 190 Neut % (Auto) 70.3 Lymph % (Auto) 15.4 L [place] % (Auto) 7.6 Eos % (Auto) 3.5 Baso % (Auto) 0.5 Neut # (Auto) 5.21 Lymph # (Auto) 1.10 [place] # (Auto) 0.60 Eos # (Auto) 0.26 Baso # (Auto) 0.04 Abs Immat Gran (auto) 0.20 Imm/Tot Granulo (auto) 2.7 Sodium 134 L Potassium 3.6 Chloride 105 Carbon Dioxide 30 Anion Gap -1 L BUN 15 Creatinine 0.5 Estimated GFR 95 Glucose 101 Calcium 7.8 L Ionized Calcium Lisha 1.10 L C-Reactive Protein 5.1 H
[2023-09-10] MEDS: cefTRIAXone 1 GM in 0.9 % SODIUM CHLORIDE Mini-bag 100 ML IVPB (15:07)
[2023-09-10] MEDS: levoFLOXacin 250 MG TABLET PO (18:02)
--- NOTE | 2023-09-10 19:33 | PC.NURSE ---
End of Shift: Patient pleasant and cooperative, oriented to self and place. VSS, afebrile. SpO2 maintained above 90% on RA. Incontinent of bladder, brief was changed. Tolerating regular diet. Denies pain this shift. Used nishi steady for transfer from chair to bed, tolerated it well. ?
[2023-09-10] MEDS: FAMOTIDINE 20 MG TABLET PO (21:32)
[2023-09-10] MEDS: ATORVASTATIN 10 MG TABLET PO (21:32)
[2023-09-11] VITALS (7 sets, daily range): BP systolic 118–167; BP diastolic 56–76; PULSE 63–79; RESP 16–22; TEMP 36.2–36.8; O2SAT 94–96
[2023-09-11 06:07] LABS: Ionized Calcium* 1.09 mmol/L (1.11-1.30)
[2023-09-11 06:17] LABS: Basophils Absolute Auto 0.03 K/uL (0.00-0.30); Basophils Percent Auto 0.5 % (0.0-3.0); Eosinophils Absolute Auto 0.31 K/uL (0.00-0.50); Eosinophils Percent Auto 4.8 % (0.0-7.0); Hematocrit 25.4 % (33.0-51.0); Hemoglobin* 8.3 gm/dL (12.0-16.0); Immature Granulocytes Pct Auto 4.6 %; Lymphocytes Percent Auto 15.3 % (20-44); Mean Corpuscular HGB Conc 33 gm/dL (32-36); Mean Corpuscular Hemoglobin 34 pg (26-34); Mean Corpuscular Volume 105 fL (80-100); Monocytes Percent Auto 11.5 % (0.0-11.0); Neutrophils Absolute Auto 4.13 K/uL (1.7-7.0); Neutrophils Percent Auto 63.3 % (42.0-72.0); Platelet Count* 238 K/uL (140-440); RDW Coefficient of Variation % 13.4 % (11.5-15.5); Red Blood Count 2.43 m/uL (4.00-5.20); White Blood Count* 6.52 K/uL (4.50-11.00)
[2023-09-11 06:19] LABS: Slide Review Reflex No
[2023-09-11 06:37] LABS: Chloride* 104 mmol/L (96-114); Sodium* 135 mmol/L (135-149)
[2023-09-11 06:38] LABS: Potassium* 3.7 mmol/L (3.6-5.1)
[2023-09-11 06:40] LABS: Creatinine* 0.5 mg/dL (0.5-1.5); Estimated Glomerular Filt Rate 95 ml/min
[2023-09-11 06:41] LABS: Anion Gap 0 mEq/L (7-15); Blood Urea Nitrogen* 14 mg/dL (7-30); Calcium* 7.8 mg/dL (8.4-10.6); Carbon Dioxide* 31 mmol/L (20-32); Glucose* 104 mg/dL (60-115)
[2023-09-11] MEDS: OMEPRAZOLE 20 MG CAPSULE DR PO ×2 (06:42→17:24)
--- NOTE | 2023-09-11 08:23 | PC.NURSE ---
Patient confused and resistive to cares at times. Easily redirected. Reported pain with repositioning during the night, otherwise denied pain. No noted covid symptoms. Afebrile.?
[2023-09-11] MEDS: METOPROLOL TARTRATE 25 MG TABLET 12.5 MG PO ×2 (09:20→21:30)
[2023-09-11] MEDS: CLOPIDOGREL 75 MG TABLET PO (09:21)
[2023-09-11] MEDS: ACETAMINOPHEN 325 MG TABLET 650 MG PO ×4 (09:21→21:31)
[2023-09-11] MEDS: ASPIRIN 81 MG TAB.CHEW PO (09:21)
--- NOTE | 2023-09-11 13:36 | P.IMPN_ITS ---
Progress Note: A&P Assessment and plan (1) Fall: Problem details: - 09/06/2023: found on floor of her kitchen, possibly on floor for 24-36 hours - Orthopedic surgery consult given fracture of R superior/inferior pubic rami - PT and OT following, will need SNF upon discharge Status: Acute (2) Acute blood loss anemia (ABLA): Problem details: - Hgb on admission: 12.8 (09/05) - Hgb 10.9, 10.6 on 09/06 - Hgb 9.1 on 09/07 - also had increased BUN without change in creatinine, + stool occult blood - on PPI, holding ASA and Plavix on 09/07, EGD ordered for 09/08 - no hematochezia, no abdominal pain, tolerating po intake - 09/08 EGD mild gastritis, no acute bleeding. Hgb 8.3 Continue PPI, continue hold ASA, plavix. I suspect with amount of change in Hgb, if anemia were due to GI bleed, gross evidence in emesis or stool would have been noted. I suspect acute blood loss anemia is likely secondary to combination of recent pelvic fracture, ecchymosis, and hemodilution from IV fluids for rhabdomyolysis. Continue to monitor hemoglobin daily. No indication for transfusion today, but may need that if hemoglobin goes below 8, she becomes symptomatic, or is persistently hypotensive. She will also need consideration of outpatient colonoscopy in the future. Also if patient becomes unstable, or hemoglobin continues to trend downward despite stopping aspirin and Plavix, she may need re-evaluation of pelvic fracture with CT looking for hematoma. - 09/09 hemoglobin stable at 8.9. Patient is a little stronger today. BP remains soft. Will restart aspirin and Plavix tomorrow, continue to follow he joselobins. I will hold off on restarting Lovenox. I do not think she needs therapeutic Lovenox this far out from the acute events of non-STEMI and stroke, and I think triple therapy with aspirin, Plavix, and Lovenox is high risk for rebleeding for her. At some point I think she should have low-dose Lovenox for VTE prophylaxis, but will restart aspirin and Plavix 1st as I believe these would have the most benefit for her in this acute setting. - 09/10 aspirin and plavix started this morning. Follow Hgb daily. Status: Acute (3) Guaiac positive stools: Problem details: - EGD unremarkable. Consider outpatient colonoscopy in the future. Status: Acute (4) COVID: Problem details: - diagnosed 09/06/23 - Remdesivir x 3 days (received 2 doses, then self-discontinued IV) Status: Acute (5) Pubic ramus fracture: Problem details: - 09/06/2023: Right superior and inferior pubic rami fxs s/p unwitnessed fall - Ortho aware and following, non operative. Recommended outpatient follow-up with inlet and outlet views, AP pelvic x-ray. - at some point she will need VTE prophylaxis with low-dose Lovenox, but I think that restarting aspirin and Plavix for acute coronary syndrome and acute stroke are the priority at this time. Status: Acute (6) Traumatic rhabdomyolysis: Problem details: - 09/06/2023: CK 5,300; monitor CK and renal function - NS IV bolus and maintenance 125 ml/hr, discontinued on 09/06 given improvement in CK Status: Resolved (7) Non-ST elevation myocardial infarction (NSTEMI): Problem details: - upon admission 09/05: elevated troponin (0.32), no concerning EKG changes, no chest pain - 09/05: initiated ASA 81 mg, clopidogrel 300 mg once then 75 mg po qd, enoxaparin 1 mg/kg q 12 hours, metoprolol tartrate 12.5 mg po bid, atorvastatin 10 mg qHS - 09/07/23: remains chest pain free with down trending troponin, Enoxaparin discontinued, reassuring TTE (formal cardiology results below) - 09/08/23: concern for GI bleed so holding ASA and Clopidogrel 1. LVEF estimate 55-60%. Normal LV size and wall thickness. 2. Normal RV size and global systolic function. 3. No significant valvular abnormalities. 4. Normal PASP and RAP estimates. 5. Color Doppler suggests a possible PFO. - 09/08 aspirin, Plavix, Lovenox are still on hold, patient remains asymptomatic. Will consider restarting aspirin and Plavix if hemoglobins stabilize. Since she is more than 48 hours out from peak troponin, I think she would only need Lovenox for VTE prophylaxis, not therapeutic Lovenox. - 09/09 restart aspirin and Plavix tomorrow morning. Continue to monitor hemoglobin. No further therapeutic Lovenox. - 09/10 aspirin and plavix were restarted this morning. monitor Hgb daily. Status: Acute (8) Mild cognitive impairment: Problem details: - history below; appears to have worsening of cognitive impairment during stay. Family aware and considering future options - MoCA with OT early 2023 - Mini cog testing is 1 of 5 with abnormal clock face drawing (she missed 2 of the words on recall, and the clock numbers were slightly off, and the hand were in the wrong place). She got the clock right 12/2020 and only missed 1 word 2022 Status: Acute (9) Cerebrovascular disease: Problem details: - Diagnosed with acute/subacute infarcts and moderate chronic ischemic disease on MRI brain done 07/23 for mild cognitive impairment - formal radiology read of MRI: Impression: 1. Few small scattered foci of acute/subacute infarcts within the right posterior frontal, parietal and temporal lobes. 2. Moderate chronic ischemic microvascular disease. As above under non-STEMI, aspirin and Plavix and Lovenox are on hold due to acute blood loss anemia. Restarting aspirin and Plavix as above. Status: Acute (10) Vitamin B12 deficiency without anemia: Problem details: - Vitamin B12 level modestly low at 235 without anemia, as part of evaluation for mild cognitive impairment, 06/25 - has been on oral replacement Status: Acute (11) Long QT interval: Problem details: 09/07/2023 QTC 493 milliseconds. I rechecked an EKG this morning since I started levofloxacin yesterday for UTI. Her QTC today is 460 milliseconds. Status: Acute (12) Hypocalcemia: Problem details: She no longer has an IV, because she pulled this out. Start oral calcium and check ionized calcium in the morning a note that she had a magnesium level of 2 on 09/09/2023 Status: Acute (13) UTI (urinary tract infection): Problem details: 09/06/2023 urine culture has grown out group B strep agalactiae and Klebsiella pneumoniae, this is sensitive to ceftriaxone which she started yesterday. - levofloxacin 250 mg p.o. daily, day 2/3. Status: Suspected Subjective Time Seen by Provider: 11:45 Date Seen: 09/11/23 Interval history: Samreen is feeling better overall. She notes she feels a little stronger every day. Her daughters were here earlier, but have already left. Exam Narrative: Exam Narrative: General: No acute distress. Awake, alert, oriented. Mild pallor. No jaundice. Sitting comfortably in the bedside chair. Oropharynx: Clear. Mucous membranes moist. Cardiovascular: Regular rate and rhythm. No murmurs, gallops, or rubs. Respiratory: Clear to auscultation bilaterally. No wheezes or crackles. Extremities: No pedal edema. Const: Vital Signs, click to edit/add: Vital Signs - 24 hr 09/10/23 15:00 09/10/23 15:00 09/10/23 15:00 Temperature 98.3 F Pulse Rate Pulse Rate [Pulse Oximeter] 68 68 Respiratory Rate 18 18 18 Blood Pressure [Le ft Arm] Blood Pressure [Ri ght Arm] 108/50 L Pulse Oximetry 97 [facility] 09/10/23 17:51 09/10/23 19:00 09/10/23 23:00 Temperature 98.2 F 98.0 F Pulse Rate 71 Pulse Rate [Pulse Oximeter] 76 65 Respiratory Rate 18 20 Blood Pressure [Le ft Arm] 139/62 Blood Pressure [Ri ght Arm] 133/53 L Pulse Oximetry 96 95 [facility] 09/10/23 23:00 09/10/23 23:00 09/11/23 03:00 Temperature 97.2 F L Pulse Rate 63 Pulse Rate [Pulse Oximeter] 76 Respiratory Rate 20 22 Blood Pressure [Le ft Arm] Blood Pressure [Ri ght Arm] 139/76 Pulse Oximetry 95 96 [facility] 09/11/23 07:00 09/11/23 07:00 09/11/23 07:00 Temperature 97.8 F Pulse Rate Pulse Rate [Pulse Oximeter] 76 63 Respiratory Rate 18 18 18 Blood Pressure [Le ft Arm] Blood Pressure [Ri ght Arm] 167/69 H Pulse Oximetry 95 94 Oxygen Delivery Pr thod Room Air Room Air 09/11/23 11:00 Temperature 97.5 F L Pulse Rate Pulse Rate [Pulse Oximeter] 63 Respiratory Rate 18 Blood Pressure [Le ft Arm] Blood Pressure [Ri ght Arm] 118/69 Pulse Oximetry 94 Oxygen Delivery Pr thod Room Air Labs Labs: Laboratory Results - last 24 hr 05/12/24 05:55 WBC 6.52 RBC 2.43 L Hgb 8.3 L Hct 25.4 L MCV 105 H MCH 34 MCHC 33 RDW Coeff of Ludy 13.4 Plt Count 238 Neut % (Auto) 63.3 Lymph % (Auto) 15.3 L [place] % (Auto) 11.5 H Eos % (Auto) 4.8 Baso % (Auto) 0.5 Neut # (Auto) 4.13 Lymph # (Auto) 1.00 [place] # (Auto) 0.70 Eos # (Auto) 0.31 Baso # (Auto) 0.03 Abs Immat Gran (auto) 0.30 Imm/Tot Granulo (auto) 4.6 Sodium 135 Potassium 3.7 Chloride 104 Carbon Dioxide 31 Anion Gap 0 L BUN 14 Creatinine 0.5 Estimated GFR 95 Glucose 104 Calcium 7.8 L Ionized Calcium Lisha 1.09 L
[2023-09-11] MEDS: levoFLOXacin 250 MG TABLET PO (16:42)
--- NOTE | 2023-09-11 19:21 | PC.NURSE ---
End of Shift: Patient pleasant and cooperative, alert but oriented to self and place only. VSS, afebrile. SpO2 maintained above 90% on RA. Tolerating regular diet. Incontinent of bladder, brief changed. Denies pain this shift. Radha steady for transfers.
[2023-09-11] MEDS: ATORVASTATIN 10 MG TABLET PO (21:30)
[2023-09-11] MEDS: FAMOTIDINE 20 MG TABLET PO (21:30)
[2023-09-12 02:35] VITALS: BP 127/56; PULSE 70; RESP 16; TEMP 36.1; O2SAT 96
[2023-09-12 06:04] LABS: Ionized Calcium* 1.14 mmol/L (1.11-1.30)
[2023-09-12] MEDS: OMEPRAZOLE 20 MG CAPSULE DR PO ×2 (06:05→17:24)
[2023-09-12 06:11] LABS: Basophils Absolute Auto 0.04 K/uL (0.00-0.30); Basophils Percent Auto 0.7 % (0.0-3.0); Eosinophils Absolute Auto 0.27 K/uL (0.00-0.50); Eosinophils Percent Auto 4.7 % (0.0-7.0); Hematocrit 26.6 % (33.0-51.0); Hemoglobin* 8.8 gm/dL (12.0-16.0); Immature Granulocytes Abs Auto 0.26 K/uL (0.00-0.30); Immature Granulocytes Pct Auto 4.5 %; Lymphocytes Percent Auto 18.3 % (20-44); Mean Corpuscular HGB Conc 33 gm/dL (32-36); Mean Corpuscular Hemoglobin 35 pg (26-34); Mean Corpuscular Volume 104 fL (80-100); Monocytes Percent Auto 13.4 % (0.0-11.0); Neutrophils Absolute Auto 3.34 K/uL (1.7-7.0); Neutrophils Percent Auto 58.4 % (42.0-72.0); Platelet Count* 286 K/uL (140-440); RDW Coefficient of Variation % 13.9 % (11.5-15.5); Red Blood Count 2.55 m/uL (4.00-5.20); White Blood Count* 5.73 K/uL (4.50-11.00)
[2023-09-12 06:13] LABS: Slide Review Reflex No
--- NOTE | 2023-09-12 06:53 | PC.NURSE ---
End of shift [id number]: Alert to self. Resistive to cares at times. VSS. Turn and repo. Bed alarm in place. ?
[2023-09-12 08:04] VITALS: BP 139/59; PULSE 75; RESP 18; TEMP 36.6; O2SAT 97
[2023-09-12 08:09] VITALS: RESP 18; O2SAT 97
[2023-09-12] MEDS: ACETAMINOPHEN 325 MG TABLET 650 MG PO ×4 (08:10→21:16)
[2023-09-12] MEDS: ASPIRIN 81 MG TAB.CHEW PO (08:10)
[2023-09-12] MEDS: CLOPIDOGREL 75 MG TABLET PO (08:11)
[2023-09-12] MEDS: METOPROLOL TARTRATE 25 MG TABLET 12.5 MG PO ×2 (08:11→21:17)
--- NOTE | 2023-09-12 10:24 | PM.IMPN1 ---
Progress Note: A&P Assessment and plan (1) Fall: Problem details: - 09/06/2023: found on floor of her kitchen, possibly on floor for 24-36 hours - Orthopedic surgery consult given fracture of R superior/inferior pubic rami - PT and OT following, will need SNF upon discharge; none yet available, no safe discharge plan at present Status: Acute (2) Acute blood loss anemia (ABLA): Problem details: - Hgb on admission: 12.8 (09/05) - Hgb 10.9, 10.6 on 09/06 - Hgb 9.1 on 09/07 - also had increased BUN without change in creatinine, + stool occult blood - on PPI, holding ASA and Plavix on 09/07, EGD ordered for 09/08 - no hematochezia, no abdominal pain, tolerating po intake - 09/08 EGD mild gastritis, no acute bleeding. Hgb 8.3 Continue PPI, continue hold ASA, plavix. I suspect with amount of change in Hgb, if anemia were due to GI bleed, gross evidence in emesis or stool would have been noted. I suspect acute blood loss anemia is likely secondary to combination of recent pelvic fracture, ecchymosis, and hemodilution from IV fluids for rhabdomyolysis. Continue to monitor hemoglobin daily. No indication for transfusion today, but may need that if hemoglobin goes below 8, she becomes symptomatic, or is persistently hypotensive. She will also need consideration of outpatient colonoscopy in the future. Also if patient becomes unstable, or hemoglobin continues to trend downward despite stopping aspirin and Plavix, she may need re-evaluation of pelvic fracture with CT looking for hematoma. - 09/09 hemoglobin stable at 8.9. Patient is a little stronger today. BP remains soft. Will restart aspirin and Plavix tomorrow, continue to follow hemoglobins. I will hold off on restarting Lovenox. I do not think she needs therapeutic Lovenox this far out from the acute events of non-STEMI and stroke, and I think triple therapy with aspirin, Plavix, and Lovenox is high risk for rebleeding for her. At some point I think she should have low-dose Lovenox for VTE prophylaxis, but will restart aspirin and Plavix 1st as I believe these would have the most benefit for her in this acute setting. - 09/10 aspirin and plavix started this morning. Follow Hgb daily. - 09/11 Hgb stable despite restarting ASA, plavix. Continue these meds. Follow Hgb tomorrow if here, otherwise in 3-5 days. Status: Acute (3) Guaiac positive stools: Problem details: - EGD unremarkable. Consider outpatient colonoscopy in the future. Status: Acute (4) COVID: Problem details: - diagnosed 09/06/23 - Remdesivir x 3 days (received 2 doses, then self-discontinued IV) Status: Acute (5) Pubic ramus fracture: Problem details: - 09/06/2023: Right superior and inferior pubic rami fxs s/p unwitnessed fall - Ortho aware and following, non operative. Recommended outpatient follow-up with inlet and outlet views, AP pelvic x-ray. - at some point she will need VTE prophylaxis with low-dose Lovenox, but I think that restarting aspirin and Plavix for acute coronary syndrome and acute stroke are the priority at this time. Status: Acute (6) Traumatic rhabdomyolysis: Problem details: - 09/06/2023: CK 5,300; monitor CK and renal function - NS IV bolus and maintenance 125 ml/hr, discontinued on 09/06 given improvement in CK Status: Resolved (7) Non-ST elevation myocardial infarction (NSTEMI): Problem details: - upon admission 09/05: elevated troponin (0.32), no concerning EKG changes, no chest pain - 09/05: initiated ASA 81 mg, clopidogrel 300 mg once then 75 mg po qd, enoxaparin 1 mg/kg q 12 hours, metoprolol tartrate 12.5 mg po bid, atorvastatin 10 mg qHS - 09/07/23: remains chest pain free with down trending troponin, Enoxaparin discontinued, reassuring TTE (formal cardiology results below) - 09/08/23: concern for GI bleed so holding ASA and Clopidogrel 1. LVEF estimate 55-60%. Normal LV size and wall thickness. 2. Normal RV size and global systolic function. 3. No significant valvular abnormalities. 4. Normal PASP and RAP estimates. 5. Color Doppler suggests a possible PFO. - 09/08 aspirin, Plavix, Lovenox are still on hold, patient remains asymptomatic. Will consider restarting aspirin and Plavix if hemoglobins stabilize. Since she is more than 48 hours out from peak troponin, I think she would only need Lovenox for VTE prophylaxis, not therapeutic Lovenox. - 09/09 restart aspirin and Plavix tomorrow morning. Continue to monitor hemoglobin. No further therapeutic Lovenox. - 09/10 aspirin and plavix were restarted this morning. monitor Hgb daily. Status: Acute (8) Mild cognitive impairment: Problem details: - history below; appears to have worsening of cognitive impairment during stay. Family aware and considering future options - MoCA with OT early 2023 - Mini cog testing is 1 of 5 with abnormal clock face drawing (she missed 2 of the words on recall, and the clock numbers were slightly off, and the hand were in the wrong place). She got the clock right 12/2020 and only missed 1 word 2022 Status: Acute (9) Cerebrovascular disease: Problem details: - Diagnosed with acute/subacute infarcts and moderate chronic ischemic disease on MRI brain done 07/23 for mild cognitive impairment - formal radiology read of MRI: Impression: 1. Few small scattered foci of acute/subacute infarcts within the right posterior frontal, parietal and temporal lobes. 2. Moderate chronic ischemic microvascular disease. - 09/10 As above under non-STEMI, aspirin and Plavix and Lovenox are on hold due to acute blood loss anemia. Restarting aspirin and Plavix as above. Status: Acute (10) Vitamin B12 deficiency without anemia: Problem details: - Vitamin B12 level modestly low at 235 without anemia, as part of evaluation for mild cognitive impairment, 06/25 - has been on oral replacement Status: Acute (11) Long QT interval: Problem details: 09/07/2023 QTC 493 milliseconds. I rechecked an EKG this morning since I started levofloxacin 09/09 for UTI. Her QTC 09/10 was 460 milliseconds. Status: Acute (12) Hypocalcemia: Problem details: She is now on oral calcium with vit D and Calcium has come up to within normal limits. Status: Resolved (13) UTI (urinary tract infection): Problem details: 09/06/2023 urine culture has grown out group B strep agalactiae and Klebsiella pneumoniae, this is sensitive to ceftriaxone which she started yesterday. - levofloxacin 250 mg p.o. daily, day 07/02. Status: Suspected Subjective Time Seen by Provider: 09:22 Date Seen: 09/12/23 Interval history: Samreen feels well. No gross blood in the stool or melena. Her daughters were both around, so I spoke with them both and gave them an update and answered all their questions. Exam Narrative: Exam Narrative: General: No acute distress. Awake, alert, oriented. Mild pallor. No jaundice. Propped up in bed eating breakfast. Cardiovascular: Regular rate and rhythm. No murmurs, gallops, or rubs. Respiratory: Clear to auscultation bilaterally. No wheezes or crackles. Extremities: Right hip bruise appears stable and improving. No pedal edema. Const: Vital Signs, click to edit/add: Vital Signs - 24 hr 09/11/23 11:00 09/11/23 15:00 09/11/23 15:00 Temperature 97.5 F L 98.1 F Pulse Rate [Pulse Oximeter] 63 69 69 Respiratory Rate 18 16 16 Blood Pressure [Le ft Arm] Blood Pressure [Ri ght Arm] 118/69 134/70 Pulse Oximetry 94 96 Oxygen Delivery Me thod Room Air Room Air 09/11/23 15:00 09/11/23 20:06 09/11/23 22:25 Temperature 98.2 F 97.5 F L Pulse Rate [Pulse Oximeter] 79 75 Respiratory Rate 16 18 18 Blood Pressure [Le ft Arm] 136/60 127/56 L Blood Pressure [Ri ght Arm] Pulse Oximetry 96 96 96 Oxygen Delivery Me thod Room Air Room Air Room Air 09/11/23 23:47 09/12/23 02:35 09/12/23 08:04 Temperature 97.0 F L 97.8 F Pulse Rate [Pulse Oximeter] 70 75 Respiratory Rate 18 16 18 Blood Pressure [Le ft Arm] 139/59 L Blood Pressure [Ri ght Arm] 127/56 L Pulse Oximetry 96 96 97 Oxygen Delivery Sd thod Room Air Room Air Room Air 09/12/23 08:09 Temperature Pulse Rate [Pulse Oximeter] Respiratory Rate 18 Blood Pressure [Le ft Arm] Blood Pressure [Ri ght Arm] Pulse Oximetry 97 Oxygen Delivery Sd thod Room Air Labs Labs: Laboratory Results - last 24 hr 09/12/23 05:42 WBC 5.73 RBC 2.55 L Hgb 8.8 L Hct 26.6 L MCV 104 H MCH 35 H MCHC 33 RDW Coeff of Ludy 13.9 Plt Count 286 Neut % (Auto) 58.4 Lymph % (Auto) 18.3 L [place] % (Auto) 13.4 H Eos % (Auto) 4.7 Baso % (Auto) 0.7 Neut # (Auto) 3.34 Lymph # (Auto) 1.00 [place] # (Auto) 0.80 Eos # (Auto) 0.27 Baso # (Auto) 0.04 Abs Immat Gran (auto) 0.26 Imm/Tot Granulo (auto) 4.5 Ionized Calcium Lisha 1.14
[2023-09-12 11:13] VITALS: BP 127/64; PULSE 63; RESP 18; TEMP 36.4; O2SAT 97
--- NOTE | 2023-09-12 14:22 | PC.SOCIAL ---
Addendum entered by THOMAS Edwards 09/12/23 16:19: Received a phone call from Will Rodríguez in admissions at [facility]. They can accept pt for admission for tomorrow in a private room. Discussed with pt's daughter, Jose, and she would like to accept room. Pt's daughter informs that she does not think patient can transport privately due to fracture and requests non-emergency EMS. Will provide update to daughter if patient qualifies to transport via non-emergency ambulance with coverage from medicare or if patient will privately pay for transport. Provided update to [facility] admissions, charge nurse, and MD. Will follow up in the AM. Original Note: Discharge planning- Made the following contacts to SNF for possible placement. 1. [facility]- Phone call to Will. Will requested that referral be sent to her again. Secure e-mailed referral to Will with updated information. Will will reach out to this worker with an update. 2. [facility]- Faxed referral for admissions to review. Faxed referral to [phone]. [facility] for [facility] to [facility]. Faxed referral to [phone]. Most facilities will not accept patient until patient is 10 days post Covid diagnosis. It is possible the above SNF's will accept prior to 10 day waiting period. Social work will continue to follow up as needed regarding discharge planning.
[2023-09-12 15:00] VITALS: BP 125/60; PULSE 69; RESP 18; TEMP 36.7; O2SAT 97
--- NOTE | 2023-09-12 15:35 | PC.NURSE ---
Pt alert to self and place. Pt had no complaints of pain. Pt assist of 2 with nishi steady or pivot transfer.?Pt has family at bedside from food quality technician on. Pt up to chair during shift for meals. ?
[2023-09-12] MEDS: levoFLOXacin 250 MG TABLET PO (16:05)
[2023-09-12] MEDS: FAMOTIDINE 20 MG TABLET PO (21:17)
[2023-09-12] MEDS: ATORVASTATIN 10 MG TABLET PO (21:17)
[2023-09-12 23:45] VITALS: BP 122/52; PULSE 71; RESP 16; TEMP 36.5; O2SAT 96
--- NOTE | 2023-09-12 23:50 | PC.NURSE ---
End of Shift: Patient pleasant and cooperative, alert, but only oriented to place and self. VSS, afebrile. No pain reported this shift. Incontinent of bladder and bowel, brief changed. Radha steady for transfers. Regular diet.
[2023-09-13] MEDS: OMEPRAZOLE 20 MG CAPSULE DR PO (06:09)
[2023-09-13 06:37] LABS: Hemoglobin* 8.7 gm/dL (12.0-16.0)
--- NOTE | 2023-09-13 07:21 | PC.NURSE ---
Pt is oriented to self only. Pt denies pain, chest pain, and N/V. VSS.?Pt has bruise to right hip and Meplex to right hip that is CDI.? Pt was turned and repositioned throughout night.?Night uneventful.?
[2023-09-13 08:45] VITALS: BP 140/63; PULSE 73; RESP 16; TEMP 36.3; O2SAT 96
[2023-09-13] MEDS: ACETAMINOPHEN 325 MG TABLET 650 MG PO (08:46)
[2023-09-13] MEDS: CLOPIDOGREL 75 MG TABLET PO (08:48)
[2023-09-13] MEDS: METOPROLOL TARTRATE 25 MG TABLET 12.5 MG PO (08:48)
[2023-09-13] MEDS: ASPIRIN 81 MG TAB.CHEW PO (08:48)
[2023-09-13 09:22] VITALS: O2SAT 96
--- NOTE | 2023-09-13 10:02 | PM.DS1 ---
DS: Providers Provider Time Seen by Provider: 09:12 Date Seen: 09/13/23 Date of admission: 09/06/23 19:36 Primary care physician: Echo Burgos MD Admitting Clinician: Gregg Junior MD Consults: 09/06/23 19:36 Consult to Physical Therapy [CONS] Routine Comment: Reason(s) for PT Consult:: Evaluate and Treat Any Restrictions?:: No Restrictions 09/06/23 19:41 Consult to Occupational Therapy [CONS] Routine Comment: Reason(s) for OT Consult:: Evaluate and Treat Any Restrictions?:: No Restrictions Consult to Physician [CONS] Routine Comment: Consulting Provider: Tevin Ye Has provider been notified: No Consult to Edger Liner [CONS] Routine Comment: Reason for Consult:: Discharge Planning Needs 09/07/23 01:07 Consult to Occupational Therapy [CONS] Routine Comment: Reason(s) for OT Consult:: Evaluate and Treat Any Restrictions?:: Wt Bearing as Tolerated Comment: covid positive - use appropriate precautions Consult to Physical Therapy [CONS] Routine Comment: Reason(s) for PT Consult:: Evaluate and Treat Any Restrictions?:: Wt Bearing as Tolerated Comment: covid positive- use appropriate precautions Attending Physician on discharge: Kristin Arceo MD Date of Discharge: 09/13/23 DS: Diagnosis Discharge Diagnosis (1) UTI (urinary tract infection): Status: Suspected Problem details: 09/06/2023 urine culture has grown out group B strep agalactiae and Klebsiella pneumoniae. - course of 3 day levofloxacin, to which was sensitive. (2) Fall: Status: Acute Problem details: - 09/06/2023: found on floor of her kitchen, possibly on floor for 24-36 hours - Orthopedic surgery consult given fracture of R superior/inferior pubic rami - PT and OT, [facility] for discharge (3) Acute blood loss anemia (ABLA): Status: Acute Problem details: - Hgb on admission: 12.8 (09/05) - Hgb 10.9, 10.6 on 09/06 - Hgb 9.1 on 09/07 - also had increased BUN without change in creatinine, + stool occult blood - on PPI, holding ASA and Plavix on 09/07, EGD ordered for 09/08 - no hematochezia, no abdominal pain, tolerating po intake - 09/08 EGD mild gastritis, no acute bleeding. Hgb 8.3 Continue PPI, continue hold ASA, plavix. I suspect with amount of change in Hgb, if anemia were due to GI bleed, gross evidence in emesis or stool would have been noted. I suspect acute blood loss anemia is likely secondary to combination of recent pelvic fracture, ecchymosis, and hemodilution from IV fluids for rhabdomyolysis. Continue to monitor hemoglobin daily. No indication for transfusion today, but may need that if hemoglobin goes below 8, she becomes symptomatic, or is persistently hypotensive. She will also need consideration of outpatient colonoscopy in the future. Also if patient becomes unstable, or hemoglobin continues to trend downward despite stopping aspirin and Plavix, she may need re-evaluation of pelvic fracture with CT looking for hematoma. - 09/09 hemoglobin stable at 8.9. Patient is a little stronger today. BP remains soft. Will restart aspirin and Plavix tomorrow, continue to follow hemoglobins. I will hold off on restarting Lovenox. I do not think she needs therapeutic Lovenox this far out from the acute events of non-STEMI and stroke, and I think triple therapy with aspirin, Plavix, and Lovenox is high risk for rebleeding for her. At some point I think she should have low-dose Lovenox for VTE prophylaxis, but will restart aspirin and Plavix 1st as I believe these would have the most benefit for her in this acute setting. - 09/10 aspirin and plavix started this morning. Follow Hgb daily. - 09/11 Hgb stable despite restarting ASA, plavix. Continue these meds. Follow Hgb tomorrow if here, otherwise in 3-5 days. - 09/12 Hgb stable at 8.7. (4) Guaiac positive stools: Status: Acute Problem details: - EGD unremarkable. Consider outpatient colonoscopy in the future. (5) COVID: Status: Acute Problem details: - diagnosed 09/06/23 - Remdesivir x 3 days (received 2 doses, then self-discontinued IV) (6) Pubic ramus fracture: Status: Acute Problem details: - 09/06/2023: Right superior and inferior pubic rami fxs s/p unwitnessed fall - Ortho aware and following, non operative. Recommended outpatient follow-up with inlet and outlet views, AP pelvic x-ray. - at some point she will need VTE prophylaxis with low-dose Lovenox (suggest starting this at SNF in 3-5 days), but I think that restarting aspirin and Plavix for acute coronary syndrome and acute stroke are the priority at this time. (7) Traumatic rhabdomyolysis: Status: Resolved Problem details: - 09/06/2023: CK 5,300; monitor CK and renal function - NS IV bolus and maintenance 125 ml/hr, discontinued on 09/06 given improvement in CK (8) Non-ST elevation myocardial infarction (NSTEMI): Status: Acute Problem details: - upon admission 09/05: elevated troponin (0.32), no concerning EKG changes, no chest pain - 09/05: initiated ASA 81 mg, clopidogrel 300 mg once then 75 mg po qd, enoxaparin 1 mg/kg q 12 hours, metoprolol tartrate 12.5 mg po bid, atorvastatin 10 mg qHS - 09/07/23: remains chest pain free with down trending troponin, Enoxaparin discontinued, reassuring TTE (formal cardiology results below) - 09/08/23: concern for GI bleed so holding ASA and Clopidogrel 1. LVEF estimate 55-60%. Normal LV size and wall thickness. 2. Normal RV size and global systolic function. 3. No significant valvular abnormalities. 4. Normal PASP and RAP estimates. 5. Color Doppler suggests a possible PFO. - 09/08 aspirin, Plavix, Lovenox are still on hold, patient remains asymptomatic. Will consider restarting aspirin and Plavix if hemoglobins stabilize. Since she is more than 48 hours out from peak troponin, I think she would only need Lovenox for VTE prophylaxis, not therapeutic Lovenox. - 09/09 restart aspirin and Plavix tomorrow morning. Continue to monitor hemoglobin. No further therapeutic Lovenox. - 09/10 aspirin and plavix were restarted this morning. (9) Mild cognitive impairment: Status: Acute Problem details: - history below; appears to have worsening of cognitive impairment during stay. Family aware and considering future options - [facility]CA with OT early 2023 - Mini cog testing is 1 of 5 with abnormal clock face drawing (she missed 2 of the words on recall, and the clock numbers were slightly off, and the hand were in the wrong place). She got the clock right 12/2020 and only missed 1 word 2022 (10) Cerebrovascular disease: Status: Acute Problem details: - Diagnosed with acute/subacute infarcts and moderate chronic ischemic disease on MRI brain done 07/23 for mild cognitive impairment - formal radiology read of MRI: Impression: 1. Few small scattered foci of acute/subacute infarcts within the right posterior frontal, parietal and temporal lobes. 2. Moderate chronic ischemic microvascular disease. - 09/10 As above under non-STEMI, aspirin and Plavix and Lovenox are on hold due to acute blood loss anemia. Restarting aspirin and Plavix as above. (11) Vitamin B12 deficiency without anemia: Status: Acute Problem details: - Vitamin B12 level modestly low at 235 without anemia, as part of evaluation for mild cognitive impairment, 06/25 - has been on oral replacement (12) Long QT interval: Status: Acute Problem details: 09/07/2023 QTC 493 milliseconds. I rechecked an EKG this morning since I started levofloxacin 09/09 for UTI. Her QTC 09/10 was 460 milliseconds. (13) Hypocalcemia: Status: Resolved Problem details: She is now on oral calcium with vit D and Calcium has come up to within normal limits. DS: Summary Hospital Course Hospital Course: This is a 78-year-old female with multiple chronic medical issues who fell in her home and was not found until about 48 hours later. Upon admission she noted to have an elevated CK, elevated troponin, abnormal head CTA concerning for acute stroke, pelvic fracture, hypocalcemia, elevated lactate, UTI, and is COVID positive. She was admitted with aspirin, Plavix, therapeutic Lovenox, IV antibiotics, COVID precautions, PT and OT. Hemoglobin trended downward and she was found to have guaiac-positive stool. EGD revealed only mild gastritis with no active bleeding. She had gotten quite a bit of IV fluid for concern of rhabdomyolysis, and it was thought that there was a hemodilutional effect as well as bleeding from pelvic fracture and into right hip bruise. Lovenox has been held, aspirin and Plavix were held for 2 days in hemoglobin stabilized. Aspirin and Plavix have since been restarted. At some point may be in 3-5 days, low-dose Lovenox for VTE prophylaxis could be considered and hemoglobin monitor closely. She has made good improvement over the last few days and will need rehab prior to homegoing. She is discharged to rehab today in stable and improved condition. Time Spent with Patient Time attestation: Total time spent providing and/or coordinating discharge services: Exam Narrative: Exam Narrative: General: No acute distress. Awake, alert, oriented. Mild pallor. No jaundice. Sitting in the chair eating breakfast. Cardiovascular: Regular rate and rhythm. No murmurs, gallops, or rubs. Respiratory: Clear to auscultation bilaterally. No wheezes or crackles. Const: Vital Signs, click to edit/add: Vital Signs - 24 hr 09/12/23 11:13 09/12/23 15:00 09/12/23 15:00 Temperature 97.6 F 98.0 F Pulse Rate [Pulse Oximeter] 63 69 Respiratory Rate 18 18 18 Blood Pressure [Le ft Arm] 125/60 Blood Pressure [Ri ght Arm] 127/64 Pulse Oximetry 97 97 97 Oxygen Delivery Me thod Room Air Room Air Room Air 09/12/23 15:00 09/12/23 23:45 09/12/23 23:45 Temperature 97.7 F Pulse Rate [Pulse Oximeter] 69 71 Respiratory Rate 18 16 16 Blood Pressure [Le ft Arm] 122/52 L Blood Pressure [Ri ght Arm] Pulse Oximetry 96 96 Oxygen Delivery Me thod Room Air Room Air 09/13/23 08:45 09/13/23 09:22 Temperature 97.4 F L Pulse Rate [Pulse Oximeter] 73 Respiratory Rate 16 Blood Pressure [Le ft Arm] Blood Pressure [Ri ght Arm] 140/63 H Pulse Oximetry 96 96 Oxygen Delivery Me thod Room Air Room Air DS: Data Data Completed and Pending Completed studies during hospitalization: Study: CT-Head Angio Angio CTA HEAD AND NECK-09/06/2023 5:31:33 PM Ordering Physician: JOSE Final Report: INDICATION: Acute stroke, fall, weakness. TECHNIQUE: CTA head with contrast bolus tracking, 3D angiographic rendering using maximum intensity projection (MIP) and images permanently archived. FINDINGS: There is scattered intracranial atherosclerotic disease. There is normal opacification of the intracranial vasculature. There is no large vessel occlusion. No aneurysm is identified. IMPRESSION: No large vessel occlusion or significant intracranial stenosis. Please note that all CT scans at this facility use dose modulation, iterative reconstruction, and/or weight-based dosing when appropriate to reduce radiation dose to as low as reasonably achievable. Dictated by Qasim Manuel MD @ 09/07/2023 7:39:52 AM Signed by: Qasim Manuel MD @09/07/2023 7:39:52 AM (Electronic Signature) Study: CT-Neck Angio Angio CTA HEAD AND NECK-09/06/2023 5:32:54 PM Ordering Physician: JOSE Final Report: INDICATION: Acute stroke, fall, weakness. TECHNIQUE: CTA neck with contrast bolus tracking, 3D angiographic rendering using maximum intensity projection (MIP) and images permanently archived. FINDINGS: There is carotid atherosclerosis bilaterally. There is a severe stenosis of the proximal right ICA, 70% by NASCET. There is a moderate stenosis of the proximal left ICA, 50% by NASCET. There is no significant vertebral artery stenosis or dissection. The soft tissues of the neck are within normal limits. Degenerative changes are noted in the cervical spine. IMPRESSION: 1. 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 2. Moderate stenosis of the proximal left ICA, 50% by NASCET. Please note that all CT scans at this facility use dose modulation, iterative reconstruction, and/or weight-based dosing when appropriate to reduce radiation dose to as low as reasonably achievable. Dictated by Qasim Manuel MD @ 09/07/2023 7:43:54 AM Signed by: Qasim Manuel MD @09/07/2023 7:43:54 AM (Electronic Signature) Study: CT-Spine Cervical WO-09/06/2023 5:29:51 PM Ordering Physician: JOSE Final Report: INDICATION: Fall, weakness. TECHNIQUE: CT of the cervical spine was performed without intravenous contrast. COMPARISON: None. FINDINGS: Alignment: Normal. Vertebrae: Vertebral bodies and posterior elements are intact without acute fracture. There are multilevel degenerative changes. Osteopenia. Extra-vertebral soft tissues: Normal. Visualized brain: Normal. Additional comment: Moderate biapical pleural and parenchymal scarring and bronchiectasis. IMPRESSION: 1. No acute displaced fracture or malalignment of the cervical spine. 2. Partial visualization of moderate biapical pleural-parenchymal scarring and bronchiectasis, which is favored to represent a chronic pulmonary process. Consider comparison with outside examinations if available. Please note that all CT scans at this facility use dose modulation, iterative reconstruction, and/or weight-based dosing when appropriate to reduce radiation dose to as low as reasonably achievable. Dictated by Johann Liu MD @ 09/06/2023 6:02:34 PM Signed by: Johann Liu MD @09/06/2023 6:02:34 PM (Electronic Signature) Study: XRay-Chest 1V-09/06/2023 5:44:02 PM Ordering Physician: JOSE Final Report: INDICATION: Fall. Weakness. COMPARISON: None available. TECHNIQUE: 1 view. FINDINGS: Medical Devices: Oxygen tubing overlies the left shoulder and neck. Lung Volumes: Adequate inspiration. No significant atelectasis. Lungs: Symmetrical biapical pleural capping and bilateral apical subpleural coarse reticular opacities consistent with pleural-parenchymal fibrosis. Pleura and Pleural spaces: No significant pleural effusion. No pneumothorax. Mediastinum: Normal cardiomediastinal silhouette. Bony Thorax and Soft Tissues: Elevated right hemidiaphragm. IMPRESSION: No imaging findings pertinent to the indication for the exam or significant unrelated findings. Incidental findings described in the body of the report. Dictated by Tavon Quiroga MD @ 09/06/2023 6:10:02 PM Signed by: Tavon Quiroga MD @09/06/2023 6:10:02 PM (Electronic Signature) Study: CT-Head WO-09/06/2023 5:28:59 PM Ordering Physician: JOSE Final Report: INDICATION: FALL, WEAKNESS TECHNIQUE: CT of the head was performed without IV contrast. COMPARISON: 09/05/2023. FINDINGS: Parenchyma: No acute hemorrhage, infarction, or mass. Moderate confluent periventricular white matter hypoattenuation is nonspecific and is favored to represent chronic small vessel ischemic disease. Ventricles and extra-axial spaces: Redemonstration of enlarged bilateral lateral ventricles. Visualized paranasal sinuses: Clear. Mastoid air cells: Clear. Bones: No focal abnormality. Additional comment: Moderate to large right scalp hematoma. IMPRESSION: 1. No acute hemorrhage. 2. Redemonstration of enlarged bilateral lateral ventricles. Findings may be seen in the setting of normal pressure hydrocephalus. 3. Moderate to large right scalp hematoma. Please note that all CT scans at this facility use dose modulation, iterative reconstruction, and/or weight-based dosing when appropriate to reduce radiation dose to as low as reasonably achievable. Dictated by Johann Liu MD @ 09/06/2023 5:54:38 PM Signed by: Johann Liu MD @09/06/2023 5:54:38 PM (Electronic Signature) Study: XRay-Pelvis (Bony) 1V-09/06/2023 5:44:45 PM Ordering Physician: JOSE Final Report: INDICATION: Fall. Weakness. TECHNIQUE: Pelvis one view. COMPARISON: None. FINDINGS: Mildly comminuted and displaced fractures of the right superior and inferior pubic ramus. No sacroiliac or pubic diastasis demonstrated. No definite additional fracture evident. Degenerative changes of the bilateral hips and visualized lumbar spine. Density consistent with retained contrast material in the bilateral distal ureters and urinary bladder. IMPRESSION: Fractures of the right superior and inferior pubic ramus. Dictated by Gustavo Connell MD @ 09/06/2023 6:12:38 PM Signed by: Gustavo Connell MD @09/06/2023 6:12:38 PM (Electronic Signature) Labs on day of discharge: Labs from last 24 hours 09/13/23 06:27 Hgb 8.7 L Discharge Plan Discharge Disposition: [facility] Date of Admission: 09/06/23 19:36 Attending Provider on Discharge: Kristin Arceo Consulting Providers: Tevin Ye Primary Care Provider: Echo Burgos Anticipated Discharge Date/Time: 09/13/23 10:17 Discharge Medications: New acetaminophen 325 mg Tablet 650 mg PO QID Qty: 240 0RF atorvastatin 10 mg Tablet 10 mg PO HS Qty: 30 0RF clopidogrel 75 mg Tablet 75 mg PO DAILY Qty: 30 0RF omeprazole 20 mg Capsule,Delayed Release(Dr/Ec) 20 mg PO BID@0700,1700 Qty: 60 0RF aspirin [Children's Aspirin] 81 mg Tablet,Chewable 81 mg PO DAILY Qty: 30 0RF metoprolol tartrate 25 mg Tablet 12.5 mg PO BID Qty: 15 0RF calcium carbonate-vitamin D3 [Oyster Shell Calcium-Vit D3] 500 mg-5 mcg (200 unit) Tablet 1 tab PO BID Qty: 60 0RF Discontinued acetaminophen [Tylenol Arthritis Pain] 650 mg tablet extended release 1,300 mg PO Q12H aspirin 81 mg capsule 81 mg PO DAILY alendronate 70 mg tablet 70 mg PO QWEEK Qty: 12 0RF Discharge Orders: Discharge Order (Routine); Ordered 09/13/23 Ordered By: Kristin Arceo Activity Level: Up with assist and Use Walker Discharge Diet: Heart Healthy (2 gm sodium, low fat) Follow Up Appointments: Echo Burgos MD [Primary Care Provider] - Forms: [facility] Info Instructions Admit to: SNF Discharge Potential: Good Length of Stay: <30 days Can use facility standing orders?: Yes Code Status: Full Code TEDs: Bilateral Knee Rehab Potential: Good Therapy: Physical Therapy and Occupational Therapy Therapy Orders: Evaluate and Treat Oxygen: No Urinary Catheter: No Lab Orders: Hgb Tuesday Orders are good >30 days: No Signature: Kristin Arceo MD
--- NOTE | 2023-09-13 10:33 | PC.SOCIAL ---
Addendum entered by THOMAS Edwards 09/13/23 10:54: Discharge orders were secure e-mailed to [facility] at 10:50 am. EMS is set for 12:30 pm to 1:15 pm today. Relayed information to [facility] admissions. Original Note: Discharge planning- Pt will discharge to [facility]. Pt will transport via non-emergency ambulance. [facility] requests that pt not come until after 12:30 pm. [facility] will need orders two hours in advance. Completed preadmission screening. Confirmation #[id number]. Sent copy of PAS to Will Rodríguez in admissions at [facility]. Social work will follow up as needed.
--- NOTE | 2023-09-13 11:31 | PC.NURSE ---
Nurse to Nurse report given to RAMSEY Menard at [facility]. All questions answered.
--- NOTE | 2023-09-13 13:00 | PC.NURSE ---
Patient discharged to [facility] via Non emergent EMS. All belongings sent with family.
== END 2023-09-13 13:00 | DRG 64 ==
LOC: ED 18:30 → MEDSURG 19:08
PROVIDERS: Family Medicine; Admitting Provider Internal Medicine; Emergency Provider Family Medicine; PCP Internal Medicine; Visit Provider Internal Medicine
DX: I63.233 Cerebral infarction due to unspecified occlusion or stenosis of bilateral carotid arteries (principal); I21.4 Non-ST elevation (NSTEMI) myocardial infarction; U07.1 COVID-19; S32.511A Fracture of superior rim of right pubis, initial encounter for closed fracture; N39.0 Urinary tract infection, site not specified; Z16.24 Resistance to multiple antibiotics; Z16.29 Resistance to other single specified antibiotic; D62 Acute posthemorrhagic anemia; T79.6XXA Traumatic ischemia of muscle, initial encounter; R19.5 Other fecal abnormalities; W19.XXXA Unspecified fall, initial encounter; Y92.010 Kitchen of single-family (private) house as the place of occurrence of the external cause; I34.0 Nonrheumatic mitral (valve) insufficiency; M81.0 Age-related osteoporosis without current pathological fracture; E53.8 Deficiency of other specified B group vitamins; R53.1 Weakness; E83.51 Hypocalcemia; B96.1 Klebsiella pneumoniae [K. pneumoniae] as the cause of diseases classified elsewhere; B95.1 Streptococcus, group B, as the cause of diseases classified elsewhere; K29.70 Gastritis, unspecified, without bleeding; S70.01XA Contusion of right hip, initial encounter; S70.11XA Contusion of right thigh, initial encounter; Z86.73 Personal history of transient ischemic attack (TIA), and cerebral infarction without residual deficits
CPT/HCPCS: 00731; 36415; 43239; 70450; 70496; 70498; 71045; 72125; 72170; 80048; 80053; 80076; 81001; 82150; 82270; 82330; 82550; 82728; 82803; 83605; 83735; 83880; 84132; 84484; 85018; 85025; 85027; 85610; 85730; 86140; 87040; 87086; 87186; 87631; 88305; 93005; 93306; 94761; 97110; 97112; 97162; 97166; 97530; 97535; 99100; 99140; 99285; A9270; C9113; J0613; J0696; J1650; J2704; J7030; J7050; Q9967; S0028

== ENCOUNTER 2023-09-13 12:41 | Outpatient (CLI) | payer MEDICARE, SELFPAY ==
--- OUTSIDE RECORDS SUMMARY | 2023-09-22 03:20 | XMS_ITS | Clinical Summary ---
Author Organization [employer] [facility] Address [place], [place] [address] Care Team Providers Care Chief Catalyst Operator Name Role Phone Echo Burgos MD Primary Care Provider +1- [phone] Allergies No known active allergies Medications Medication [...] Encounters Date Type Department Care Team Description 09/09/2023 Lab Requisition L [facility] [phone] Tate Garvin MD 09/07/2023 11:00 AM CDT Ancillary Procedure [facility] [address] [place] [address] 09/07/2023 Travel from Last 3 Months Social [...] Procedure Name Priority Date/Time Associated Diagnosis Comments LAB TRACKING EVENT Routine 09/09/2023 8: 50 AM CDT PATH TISSUE EXAM Routine 09/09/2023 8:50 AM CDT ECHO TTE COMPLETE WO CONTRAST Routine 09/07/2023 11:44 AM CDT NSTEMI (non-ST elevated myocardial infarction) (HC) from Last 3 Months Results * LAB TRACKING EVENT (09/09/2023 8:50 AM CDT) Other (Other) Client Collect / Unknown 09/09/2023 8:50 AM CDT 09/09/2023 9:29 PM CDT Tate Garvin MD LAB BILL ONLY [facility] [address] [place] [address], * PATH TISSUE EXAM (09/09/2023 8:50 AM CDT) Case Report Pathology Report ?Case: [id number] ? Authorizing Provider: ??Reister, Ybarra, MD ?Collected: ? 09/09/2023 0850 ? Ordering Location: ? [facility] ?Received: ?09/10/2023525 ? Pathologist: ? Zay Cade, ? MD ? Specimens: ?? A) - Duodenum Biopsy ? B) - Stomach Biopsy ? 09/13/2023 11:21 AM T [facility] Final Diagnosis A) DUODENUM, BIOPSY: 1. Normal duodenal mucosa 2. Negative for celiac disease and other enteropathy B) STOMACH, BIOPSY: 1. Non-erosive reactive gastropathy (see comment) ?? a. Sampling: Antral and body mucosae ?? b. Distribution: Antral and body mucosae 2. Negative for inflammation, atrophy and Helicobacter 09/13/2023 11:21 AM T [facility] Comment B) The likely etiology is an ongoing non-inflammatory type mucosal injury due to a chemical type of injury; this may be due to ingestion of non-steroidal anti-inflammator y drugs, aspirin (via prostaglandin-me diated injury), excess alcohol, corticosteroids, or bile/alkaline reflux, the latter usually in the setting of a gastroenteric anastomosis. 09/13/2023 11:21 AM T [facility] Clinical Information Ms. Hernandez is a 78 y.o. who presents with iron deficiency anemia due to suspected upper GI bleeding. EGD reveals a regular Z-line at 35 cm. The entire esophagus showed no gross lesions. Gastritis was identified. The duodenum showed no gross lesions. 09/13/2023 11:21 AM T [facility] Gross Description A) Received in formalin is a morris mucosal fragment measuring 4 mm in greatest dimension, which is entirely submitted in one cassette. It is labeled with the patient's name and designated duodenum biopsy. B) Received in formalin are 3 morris mucosal fragments ranging from 2 mm to 6 mm in greatest dimension, which are entirely submitted in one cassette. It is labeled with the patient's name and designated random stomach biopsy. Meredith Christiansen 09/10/2023 9:48 AM 09/13/2023 11:21 AM T [facility] Microscopic Description The final diagnosis is based on microscopic examination of appropriate sections of all specimens. 09/13/2023 11:21 AM [facility] Additional Information Interpreted at [facility] Central Laboratory - [address], [place] [address] 09/13/2023 11:21 AM CDT [facility] ENTRAL LABORATORY Other (Duodenum Biopsy) 09/09/2023 8:50 AM CDT 09/10/2023 5:26 AM CDT Specimen (specimen) (Stomach Biopsy) 09/09/2023 8:50 AM CDT 09/10/2023 5:26 AM CDT Tate Garvin MD PATHOLOGY/CYTOLOGY [facility]AL [facility]ORATORY [address] [place] [address], * ECHO TTE COMPLETE WO CONTRAST (09/07/2023 11:44 AM CDT) AORTIC VALVE MEAN PG 9 mmHg EJECTION FRACTION 56 % PEAK TR VELOCITY 2.6 m/s LVEDD 3.9 cm EJECTION FRACTION 55 - 60% Anatomical Region Laterality Modality Ultrasound 09/07/2023 11:0 4 AM CDT Narrative 09/07/2023 12:16 PM CDT ECHOCARDIOGRAM SAMREEN HERNANDEZ ?Accession#: ?? [id number] : ?1945 78 years Study Date: ?? 09/07/2023 11:04:06 AM Gender: F ? BP: ? 157/69 mmHg Height: 168.00 cm ? BSA: ?1.73 m? ? ? Weight: 64.00 kg ?Tech: ? MSR ?Referring MD: GREGG JUNIOR Site: ? [facility] Reading Location: [facility] Patient Location: Inpatient. Procedure: 2D, Color Doppler [...] . This study was interpreted by an [facility] accredited facility. CC: HIM (med records) [facility], Med/Surg - IP [facility]. ??Final ?? Procedure Note Kayden [place] MD - 09/07/2023 ECHOCARDIOGRAM SAMREEN HERNANDEZ : 1945 78 years Study Date: 09/07/2023 11:04:06 AM Gender: F BP: 157/69 mmHg Height: 168.00 cm BSA: 1.73 m? ? ? Weight: 64.00 kg Tech: GERMAN Referring MD: GREGG JUNIOR Site: [facility] Reading Location: [facility] Patient Location: Inpatient. Procedure: 2D, Color Doppler [...] . This study was interpreted by an [facility] accredited facility. CC: HIM (med records) [facility], Med[facility]urg [facility]. Final Gregg Junior MD ECHO ORD from Last 3 Months Care Teams Chief Catalyst Operator Relationship Specialty Start Date End Date Echo Burgos MD [address] [place] [address] PCP - General Internal Medicine 09/30/17
--- OUTSIDE RECORDS SUMMARY | 2023-09-22 03:20 | XMS_ITS | Data Portability ---
Author Organization [place] [facility], [employer] Address [address] [place] [address] Assessment Encounter Date Assessment Date Assessment LastModified [...] orthoic progress and trial subiomed next visit. [email or web address] Not available 08/04/2022 20:56:24 07/28/2022 07/28/2022 We discussed foot care for pronation and hallux valgus b/l. Pt. wished to proceed with orthotics for knees before considering surgical treatment. Not available 07/28/2022 16:30:25 Plan of Treatment [...] Details Recorded Time Hammer toe Active 02/01/20 Hammer toe; Original Code: 861458114 Original Codesystem : SNOMED CT Classif ication: Medical Co nfirmation Status: Confirmed Not Available [facility] 07/06/2022 09:06:25 Callosity Active 02/01/20 20 Callosity; Original Code: 763822330 Original Codesystem : SNOMED CT Classif ication: Medical Co nfirmation Status: Confirmed Not Available [facility] 07/06/2022 09:06:25 Pain of knee region Active 03/17/20 21 Pain of knee region; Original Code: 1082926646 Original Codesystem : SNOMED CT Classif ication: Medical Co nfirmation Status: Confirmed Not Available [facility] 07/06/2022 09:06:25 Acquired hallux valgus Active 02/01/20 20 Acquired hallux valgus; Original Code: 707865315 Original Codesystem : SNOMED CT Classif ication: Medical Co nfirmation Status: Confirmed Acquired hallux valgus; Original Code: 402274968 Original Codesystem : SNOMED CT Classif ication: Medical Co nfirmation Status: Confirmed ; Start Date : 01/08/2020 Not Available [facility] 07/06/2022 09:06:25 Problem Notes None recorded. Medical [...] Updated DateTime 06/08/2022 167.64 cm 25.8 kg/m2 42826.78 g Bernice Koehler [place] [facility] 06/08/2022 [...] Diagnosis SNOMED-CT Code 2745 Cody Grimaldo DPM [place] [facility] [address] [place] [address] 06/08/2022 15:06:04 06/09/2022 10:20:26 Pain in left foot 80239060436024 7 Pain in right foot 27543 358236919 7 Hallux rhoda alphonso AND bunion 251991773 Hammer toe 095950514 Pain of ri ght knee joint 01275981542804 0 Pain of le ft knee joint 29146856282405 7 3841 Cody Grimaldo DPM [place] [facility] [address] [place] [address] 07/16/2022 10:04:03 08/05/2022 10:05:00 Pain in left foot 66905440699151 7 Pain in right foot 11104 272481746 7 Hallux rhoda alphonso AND bunion 219817325 Hammer toe 842832225 Pain of ri ght knee joint 48429774232575 0 Pain of le ft knee joint 82600531512167 7 4198 Cody Grimaldo DPM [place] Main [facility] [address] [place] [address] 07/28/2022 15:14:36 07/28/2022 16:43:29 Pain in left foot 20807892866278 7 Pain in right foot 78682 883218754 7 Hallux rhoda alphonso AND bunion 606836475 Hammer toe 286382387 Pain of ri ght knee joint 36649167967065 0 Pain of le ft knee joint 04665090692517 7 Health Concerns Section Related Observation LastModified by Organization Detai ls LastModified Time None Recorded Concern Status LastModified by Organization Details LastModified Time None Recorded Advance Directives Directive None Recorded Payers Encounter Date Sequence Insurance Name Policy Number Policy [place] Covered Member ID [place] Member ID Guarantor Name 07/28/2022 1 [employer] - CHOICE (POS II) [id number] Samreen Hernandez [id number] 2 Samreen Hernandez 06/30/2022 1 [employer] - CHOICE (POS II) [id number] Samreen Hernandez [id number] 2 Samreen Hernandez 06/30/2022 1 [place] [employer] Samreen Hernandez [id number] Samreen Hernandez 06/08/2022 1 [employer] - CHOICE (POS II) [id number] Samreen Hernandez [id number] 2 Samreen Hernandez Notes Date Note Type Note Provider Name and Address Organization Details Recorded Time 06/08/2022 text/html HPI Notes: Increasing pain in shoes with activity related to bunions . Prior shoe changes and conservative care. Has used orthotics for some time. Cody Grimaldo DPM [address] [place], [address], [facility] 07/02/2022 18:46:14 06/30/2022 text/html HPI Notes: Increasing pain in shoes with activity related to bunions . Prior shoe changes and conservative care. Orthotic modifications have failed to significantly im prove symptoms. Continued knee pain b/l. Cody Grimaldo DPM [address] [place], [address], [facility] 08/04/2022 20:56:39 07/28/2022 text/html HPI Notes: Increasing pain in shoes with activity related to bunions . Prior shoe changes and conservative care. Has used orthotics for some time. Cody Grimaldo DPM [address] [place], [address], [facility] 07/28/2022 16:32:09 OBGyn Episode No OBEpisode recorded.
== END 2023-09-13 12:42 | disposition home or self-care (01) ==
LOC: AMB 09-22 03:18
PROVIDERS: PCP Internal Medicine; Visit Provider Family Medicine
DX: S32.599S Other specified fracture of unspecified pubis, sequela (principal); Z99.3 Dependence on wheelchair
CPT/HCPCS: A0425; A0428

== ENCOUNTER 2024-02-09 13:52 | Outpatient (CLI) | payer MEDICARE, SELFPAY | END 2024-02-09 13:53 | disposition home or self-care (01) | LOC: NFLDREF 13:53 | PROVIDERS: PCP Internal Medicine; Visit Provider Internal Medicine | DX: Z01.818 Encounter for other preprocedural examination (principal) | CPT/HCPCS: 80053 ==

== ENCOUNTER 2024-02-23 10:18 | Day surgery (SDC) | payer MEDICARE, SELFPAY ==
[2024-02-23] VITALS (19 sets, daily range): BP systolic 120–162; BP diastolic 64–88; PULSE 53–76; RESP 12–16; TEMP 35.9–36.8; O2SAT 95–99; BMI 24.8
--- OUTSIDE RECORDS SUMMARY | 2024-02-23 10:23 | XMS_ITS | Clinical Summary ---
Author Organization [employer] [facility] Address [place], [place] [address] Care Team Providers Care Licensed Architect Name Role Phone Echo Burgos MD Primary Care Provider +1- [phone] Allergies No known active allergies Medications Medication [...] 65+ (1 of 1 - PCV) 2009 RSV vaccine for adults or pr egnancy (1 - 1-dose 75+ series) 2019 COVID-19 vaccine series ( season) 2024 07/05/2020, 06/14/2020 Influenza for age 65+ 01/01/2024 Care Teams Licensed Architect Relationship Specialty Start Date End Date Echo Burgos MD [address] [place] [address] PCP - General Internal Medicine 09/30/17
--- OUTSIDE RECORDS SUMMARY | 2024-02-23 10:23 | XMS_ITS | Data Portability ---
Author Organization [place] - [facility], [employer] Address [address] [place] [address] Assessment Encounter Date Assessment Date Assessment LastModified by Organization Details LastModified Time 06/08/2022 06/08/2022 We discussed foot care for pronation and hallux valgus b/l. Pt. wished to proceed with discussion of orthotics and Subiomed for knees before considering surgical treatment. [email or web address] Not available 07/02/2022 18:45:37 06/30/2022 06/30/2022 We discussed foot care for pronation and hallux valgus b/l. Pt. wished to proceed with discussion of Subiomed for knees before she considers knee surgery. Will follow to evaluate orthoic progress and trial subiomed next visit. [email or web address] Not available 08/04/2022 20:56:24 07/28/2022 07/28/2022 We [...] Reason for Referral None Reported. Problems Name Problem SNOMED Code Status Onset Date Resolution Date Notes Provider Name and Address Organization Details Recorded Time Hammer toe 148521907 Active 2019 Hammer toe; Original Code: 899024625 Original Codesyste m: SNOMED CT Classi fication: Medical C onfirmati on Status: Confirmed Not Available [facility] 03/07/202 3 09:06:25 Callosity 153043809 Active 2019 Callosity ; Original Code: 891995444 Original Codesyste m: SNOMED CT Classi fication: Medical C onfirmati on Status: Confirmed Not Available [facility] 3 09:06:25 Pain of knee region 6811903492 Active 2020 Pain of knee region; Original Code: 073250733 3 Origina l Codesyste m: SNOMED CT Classi fication: Medical C onfirmati on Status: Confirmed Not Available [facility] 3 09:06:25 Acquired hallux valgus 99536743 Active 2019 Acquired hallux valgus; Original Code: 763813403 Original Codesyste m: SNOMED CT Classi fication: Medical C onfirmati on Status: Confirmed Acquire d hallux valgus; Original Code: 314082891 Original Codesyste m: SNOMED CT Classi fication: Medical C onfirmati on Status: Confirmed ; Start Date : 0 Not Available [facility] 3 09:06:25 Problem Notes None recorded. Medical Equipment [...] Updated DateTime 06/08/2022 167.64 cm 25.8 kg/m2 07983.78 g Bernice BISH[facility] - [facility] 06/08/2022 15:08:56 Social History None recorded. Functional Status None recorded. Mental Status None recorded. Family History Nothing Reported. Medical History No medical history recorded. Gynecological HistoryNo gynecological history recorded. Obstetrics History GPAL:G 0 P 0 0 0 0 Past Encounters Encounter ID Performer Location Encounter Start Date Encounter Closed Date Diagnosis/Indication Diagnosis SNOMED-CT Code Diagnosis ICD10 Code [id number] Cody Grimaldo DPM [place] [facility] [address] [place] [address] 06/08/2022 15:06:04 06/09/2022 10:20:26 Pain in left foot 5152282690 42277 M79.672 Pain in right foot 13549 16920 61244 M79.671 Hallux rhoda alphonso AND bunion 729902921 M20.11 M20.12 Hammer toe 872864681 M20 .41 Pain of ri ght knee joint 0729546636 54705 M25.561 Pain of le ft knee joint 1026233270 06028 M25.562 [id number] Cody Grimaldo [facility] Main Office [address] [place] [address] 07/16/2022 10:04:03 08/05/2022 10:05:00 Pain in left foot 9204645492 54488 M79.672 Pain in right foot 07060 52661 55346 M79.671 Hallux rhoda alphonso AND bunion 685858035 M20.11 M20.12 Hammer toe 020985902 M20 .41 Pain of ri ght knee joint 7393157856 39265 M25.561 Pain of le ft knee joint 3390805276 01427 M25.562 [id number] Cody Grimaldo [facility] Main Office [address] [place] [address] 07/28/2022 15:14:36 07/28/2022 16:43:29 Pain in left foot 7916560501 84319 M79.672 Pain in right foot 98400 60488 88267 M79.671 Hallux rhoda alphonso AND bunion 472957434 M20.11 M20.12 Hammer toe 632850229 M20 .41 Pain of ri ght knee joint 0659364245 93817 M25.561 Pain of le ft knee joint 2238701019 08893 M25.562 Health Concerns Section Related Observation LastModified by Organization Detai ls LastModified Time None Recorded Concern Status LastModified by Organization Details LastModified Time None Recorded Advance Directives Directive None Recorded Payers Encounter Date Sequence Insurance Name Policy Number Policy [place] Covered Member ID [place] Member ID Guarantor Name 06/08/2022 1 [employer] - CHOICE (POS II) [id number] Samreen Hernandez [id number] 2 Samreen Hernandez 06/30/2022 1 [employer] - CHOICE (POS II) [id number] Samreen Hernandez [id number] 2 Samreen Hernandez 06/30/2022 1 MED[place]: [facility] Samreen Hernandez [id number] Samreen Hernandez 07/28/2022 1 [employer]ET[employer] - CHOICE (POS II) [id number] Samreen Hernandez [id number] 2 Samreen Hernandez Notes Date Note Type Note Provider Name and Address Organization Details Recorded Time 06/08/2022 text/html HPI Notes: Increasing pain in shoes with activity related to bunions . Prior shoe changes and conservative care. Has used orthotics for some time. Cody Grimaldo DPM [address] [place], [address], [facility] 07/02/2022 18:46:14 06/30/2022 text/html HPI Notes: Increasing pain in shoes with activity related to bunions . Prior shoe changes and conservative care. Orthotic modifications have failed to significantly im prove symptoms. Continued knee pain b/l. Cody Grimaldo DPM [address] [place], [address], [facility] 08/04/2022 20:56:39 07/28/2022 text/html HPI Notes: Increasing pain in shoes with activity related to bunions . Prior shoe changes and conservative care. Has used orthotics for some time. Cody Grimaldo DPM [address] [place], [address], [facility] 07/28/2022 16:32:09 OBGyn Episode No OBEpisode recorded.
[2024-02-23] MEDS: ACETAMINOPHEN 500 MG TABLET 1000 MG PO ×2 (11:47→18:13)
[2024-02-23] MEDS: OXYCODONE (CR) 10 MG TAB.ER.12H PO (11:47)
[2024-02-23] MEDS: CELECOXIB 200 MG CAPSULE PO (11:47)
[2024-02-23] MEDS: SODIUM CHLORIDE 0.9 % (FLUSH) 10 ML SYRINGE IVF (11:48)
[2024-02-23] MEDS: fentaNYL 100 MCG/2 ML inj IVP (11:58)
[2024-02-23] MEDS: MIDAZOLAM HCL 1 MG/ML inj IVP (11:58)
--- NOTE | 2024-02-23 11:58 | SUR.PREOP ---
TIME?OUT:?1157 PT/Iram Valentine RN/Dr. Donn MDA?VERIFICATION?OF?SURGICAL?SITE right knee,?PROCEDURE,?AND?CONSENT OBTAINED?PRIOR?TO?INVASIVE?PROCEDURE.
[2024-02-23] MEDS: 0.9 % SODIUM CHLORIDE 500 ML 100 ML IV (12:04)
[2024-02-23] MEDS: 0.9 % SODIUM CHLORIDE 500 ML 500 ML 100 ML IV (12:04)
[2024-02-23] MEDS: CEFAZOLIN 2 GM INJ IVP (12:48)
[2024-02-23] MEDS: TRANEXAMIC ACID 100 MG/ML INJ 1000 MG IV (12:55)
--- NOTE | 2024-02-23 14:00 | CRLHL7_ITS ---
For Patients: As a result of the Cures Act, medical imaging exams and procedure reports are released immediately into your electronic medical record. You may view this report before your referring provider. If you have questions, please contact your health care provider. Indication: post op TKA Technique: Two views right knee Findings/Impression: Hardware from a right total knee arthroplasty is in satisfactory position. Bone alignment is normal. No sign of acute fracture. Postop changes are within normal limits. Dictated by Trenton Doran MD @ 02/24/2024 12:56:14 PM (Electronically Signed)
--- NOTE | 2024-02-23 14:01 | P.ORPRC_ITS ---
Procedure Note Date of procedure: 02/23/24 Procedure: PREOPERATIVE DIAGNOSIS: Right knee osteoarthritis POSTOPERATIVE DIAGNOSIS: Right knee osteoarthritis NAME OF OPERATION: Right total knee arthroplasty SURGEON: Elbert Barrett MD BACTERIOLOGY TEACHER: Viviana Carvalho PA-C ANESTHESIA: Spinal ESTIMATED BLOOD LOSS: 0 mL COMPLICATIONS: None SPECIMENS: None DRAINS: None PREOPERATIVE ANTIBIOTICS: Ancef 1 g IMPLANTS: 1. J&J Attune # 5 posterior stabilized femur 2. #4 fixed-bearing tibia 3. #5 posterior stabilized, 5 mm fixed-bearing polyethylene 4. 35 patella INDICATIONS: The patient is a 78-year-old with a longstanding history of severe, unrelenting right knee pain secondary to end-stage (grade IV) right knee osteoarthritis. Despite appropriate nonoperative management, including activity modification, anti-inflammatories, [id number] pain medication, bracing, physical therapy, and injections they continue to have pain and disability. Operative intervention was offered. The risks, benefits and expected outcomes were discussed in detail. These included but were not limited to: Infection, bleeding, injury to blood vessel or nerve, venous thromboembolism. All questions were answered to their satisfaction. Use of an botany laboratory assistant was necessary throughout the case for patient positioning and safety, soft tissue retraction, and closure. PROCEDURE: Spinal anesthesia was administered. The patient was placed supine on the operating table. The botany laboratory assistant made sure the patient was positioned appropriately. The lower extremity was prepped and draped in the usual sterile fashion. The limb was exsanguinated with the Abhay bandage. The pneumatic t ourniquet was inflated to 300 mmHg. A standard anterior incision was made with the knee in flexion. Subcutaneous dissection was sharply taken through fascial layer #1. Full-thickness medial and lateral flaps were elevated. The botany laboratory assistant retracted the soft tissues and protected them throughout the case. A standard subvastus approach was made. The patella was subluxed. The infrapatellar fat pad was debrided. The menisci and cruciate ligaments were sharply d?brided. Marginal osteophytes were d?brided with the rongeur. The drill was used to penetrate the femoral canal. The canal was aspirated and irrigated with pulse lavage. The intramedullary femoral guide was placed for a 5-degree valgus cut, removing 12 mm off the distal femur. The saw was used to make the cut. Whitesides line and the trans epicondylar axis were marked. The femoral sizing guide was pinned onto the distal femur. Three degrees of external rotation nicely parallels the transepicondylar axis. Pins were placed for posterior referencing. The four-in-one cutting guide was pinned onto the distal femur. The anterior, posterior, and chamfer cuts were made. The botany laboratory assistant protected the collateral ligaments. The box cutting guide was pinned. The box cuts were made. The boxed trial was placed and was an excellent fit. Drill holes for the lugs were made. Attention was then turned to the proximal tibia. The extramedullary tibial guide was placed for a neutral varus/valgus cut with 5 degrees of posterior slope, removing 2 mm based off the medial tibial surface. The botany laboratory assistant protected the collateral ligaments and the neurovascular bundle. The saw was used to make the cut. Trial components were placed. The knee was nicely balanced in both flexion and extension. The trial components were removed. The tray was placed in appropriate rotation, parallel to our tibial cutting pins. It was pinned by the botany laboratory assistant and the drill and the punch were used. The tray was removed. The punch was used again. We placed a bone plug in the femoral canal. Attention was then turned to the patella. [place] patellar thickness was 17 mm. The lobster claw resection guide was used with the 7.5 mm fabiana plus a saw blade used as an extra fabiana. The saw was used to make the cut. Drill holes were made by the botany laboratory assistant. The trial was placed and was an excellent fit. Cancellous surfaces were irrigated with pulse lavage and thoroughly dried by the botany laboratory assistant. We cemented the tibial component, then the femoral component. We impacted the 5 mm polyethylene onto the tibial tray. The knee was brought into full extension. We then cemented the patellar component. Excessive cement was removed. The cement was allowed to harden. The knee was taken through a range of motion and was found to be nicely balanced in both flexion and extension. The patella tracks centrally. The botany laboratory assistant did a three minute dilute Betadine solution soak. The botany laboratory assistant irrigated the wound with 3 liters of normal saline via pulse lavage. The botany laboratory assistant reapproximated the extensor mechanism with #1 Vicryl in an interrupted [id number] fashion. The botany laboratory assistant then ran the extensor mechanism with a #1 PDO Stratafix. The botany laboratory assistant closed the subcutaneous tissues with a 3-0 Stratafix and the skin with a running 3-0 Stratafix in a subcuticular fashion. Glue was used to seal the skin. The botany laboratory assistant placed a dry dressing. Sponge and needle counts were correct x2. The patient tolerated the procedure well. There were no apparent complications. They were carefully transferred to the hospital bed and taken to the postanesthesia care unit in satisfactory condition. PLAN: The patient will be mobilized with physical therapy. Aspirin will be used for DVT prophylaxis. They will be discharged to home once medically appropriate.
--- NOTE | 2024-02-23 15:03 | P.NB_ITS ---
Nerve Block Nerve Block Time Seen by Provider: 12:00 Date Seen: 02/23/24 Type of block requested by surgeon for post-operative analgesia: adductor canal Side: right Time out performed: Yes Verification of patient name: Yes Verification of date of : Yes Site marking: site marked Name of person performing procedure: Donn Continuous monitoring Was continuous monitoring of O2 sat, B/P, cardiac cath tech, recorded every 15 minutes?: Yes Procedure Checklist: sterile prep, needles and gloves Ultrasound guided. Images saved: Yes Medications given in 5ml increments after negative aspiration: Marcaine %: 0.25 mL: 15 Needle gauge: 20 Precedex (mcg): 25 Patient tolerated procedure well: Yes Block Charges Block Charge (with Pro Fee): Femoral Nerve Use of Ultrasound Machine for Block: Yes- US Guidance/pain block
--- NOTE | 2024-02-23 15:04 | P.NB_ITS ---
Nerve Block Nerve Block Time Seen by Provider: 12:00 Date Seen: 02/23/24 Type of block requested by surgeon for post-operative analgesia: geniculars Side: right Time out performed: Yes Verification of patient name: Yes Verification of date of : Yes Site marking: site marked Name of person performing procedure: Donn Continuous monitoring Was continuous monitoring of O2 sat, B/P, smash fixer, recorded every 15 minutes?: Yes Procedure Checklist: sterile prep, needles and gloves Ultrasound guided. Images saved: Yes Medications given in 5ml increments after negative aspiration: Marcaine %: 0.25 mL: 9 Needle gauge: 25 Patient tolerated procedure well: Yes Block Charges Block Charge (with Pro Fee): Genicular Nerve Block
--- NOTE | 2024-02-23 15:05 | P.ANES_ITS ---
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
[2024-02-23] MEDS: LACTATED RINGERS 1000 ML 1,000 ML 75 ML IV (15:57)
--- NOTE | 2024-02-23 18:03 | P.IMCN_ITS ---
Date of Consult Consult date: 02/23/24 Requesting Physician: Orthopedics Primary Care Provider: Ecoh Burgos MD Consult Narrative Narrative: HOSPITALIST CONSULT NAME OF OPERATION: Right total knee arthroplasty SURGEON: Elbert Barrett MD ANESTHESIA: Spinal ESTIMATED BLOOD LOSS: 0 mL COMPLICATIONS: None SPECIMENS: None DRAINS: None PREOPERATIVE ANTIBIOTICS: Ancef 1 g The hospital medicine team was asked by the orthopedic surgery team to manage the patient's cerebrovascular disease, vascular dementia, fraility There have been no perioperative complications. I have updated and reviewed the active medical problems, past medical history, past surgical history, social history, allergies and medications in our electronic EMR. This includes a cross reference to care everywhere in [facility] and with [facility] databases. PHYSICAL EXAM: CODE STATUS: FULL CODE CONSTITUTIONAL: Calm. No agitation. VITAL SIGNS: see record. HEENT: Normocephalic, atraumatic. PERRL, EOMI, conjunctivae pink, no scleral icterus. Ears and nose externally normal. Pharynx normal. NECK: No JVD. No carotid bruit, no thyromegaly, no adenopathy. CHEST: Clear to auscultation bilaterally HEART: S1 and S2 normal. ABDOMEN: Flat, soft, nontender. Normal bowel sounds. Moderately obese. EXTREMITIES: No edema. MUSCULOSKELETAL: Right knee encompassed in surgical dressing. No obvious bleeding or hematoma appreciated NEURO: Cranial nerves intact. Mentation normal. Normal affect. SKIN: No rashes, petechiae, concerning changes PSYCHIATRIC: Mentation normal. INVESTIGATIONS: EMR Reviewed; Pre-OP Reviewed DISPOSITION: DVT: Agree with Ortho team decision, aspirin b.i.d. GI: PO intake [facility] Medical History (Updated 02/23/24 @ 18:08 by Melony Yañez MD) Mitral regurgitation ?I34.0 - Nonrheumatic mitral (valve) insufficiency (ICD-10) Adenomatous colon polyp ?D12.6 - Benign neoplasm of colon, unspecified (ICD-10) Ptosis of left eyelid ?H02.402 - Unspecified ptosis of left eyelid (ICD-10) Migraine ?G43.909 - Migraine, unspecified, not intractable, without status migrainosus (ICD-10) Osteoporosis ?M81.0 - Age-related osteoporosis without current pathological fracture (ICD- 10) Health care directive on file ?Z78.9 - Other specified health status (ICD-10) Osteoarthritis of left knee ?M17.12 - Unilateral primary osteoarthritis, left knee (ICD-10) Surgical History (Updated 02/23/24 @ 18:08 by Melony Yañez MD) Status post right knee replacement ?Z96.651 - Presence of right artificial knee joint (ICD-10) History of arthroplasty of right knee (02/23/24) ?Z96.651 - Presence of right artificial knee joint (ICD-10) History of blepharoplasty ?Z98.890 - Other specified postprocedural states (ICD-10) History of cataract surgery ?Z98.49 - Cataract extraction status, unspecified eye (ICD-10) History of laparoscopic cholecystectomy ?Z90.49 - Acquired absence of other specified parts of digestive tract (ICD- 10) History of vaginal hysterectomy ?Z90.710 - Acquired absence of both cervix and uterus (ICD-10) Social History What is your current living situation?: I presently have a place to live Problems where you live: no known problems Problems where you live details: N/A In the past 12 months, utilities in danger of being shut off: no In past 12 months, lack of transportation kept you from medical appts, meetings, work, or getting things needed for daily living: no In the past 12 mos, have been you worried that your food would run out before you had money to buy more?: never true In the past 12 mos, the food you bought just didn't last and you didn't have money to buy more?: never true Smoking Status: Former smoker What tobacco products do you use: cigarettes Smoking quit date/years: >15 years ago Do you use any of these nicotine containing products: None Second hand tobacco smoke exposure: No How often do you have a drink containing alcohol: never How often do you have six or more drinks on one occasion: Never AUDIT-C Alcohol total score: 0 Non-prescribed substance use: denies use Caffeine: Yes (5-6 cups/day) How often does anyone, including family, friends and others, physically hurt you : never How often does anyone, including family, friends and others, insult or talk down to you: never How often does anyone, including family, friends and others, threaten you with harm: never How often does anyone, including family, friends and others, scream or curse at you: never Little interest or pleasure in doing things: not at all Feeling down, depressed, or hopeless: not at all service: No Meds Home Medications and Allergies Home Medications ?Medication ?Instructions ?Recorded ?Confirmed ?Type lidocaine 4 % topical patch 1 patch topical BID PRN 11/21/23 02/09/24 History Allergies Allergy/AdvReac Type Severity Reaction Status Date / Time No Known Drug Allergies Allergy Verified 02/23/24 10:40 Exam Const: Vital Signs, click to edit/add: Vital Signs - 24 hr 02/23/24 11:02 02/23/24 12:00 02/23/24 15:00 Temperature 97.6 F 98.2 F Pulse Rate 76 76 60 Respiratory Rate 16 16 14 Blood Pressure 162/77 H 155/88 H 125/67 Pulse Oximetry 97 99 95 Oxygen Delivery Me thod Room Air Nasal Cannula Room Air Oxygen Flow Rate 2 02/23/24 15:05 02/23/24 15:10 02/23/24 15:15 Temperature Pulse Rate 59 L 58 L 71 Respiratory Rate 14 16 16 Blood Pressure 126/70 136/72 141/79 H Pulse Oximetry 96 95 95 Oxygen Delivery Me thod Room Air Room Air Room Air Oxygen Flow Rate 02/23/24 15:20 02/23/24 15:25 02/23/24 15:33 Temperature 97.2 F L 97.1 F L Pulse Rate 69 67 72 Respiratory Rate 16 16 12 Blood Pressure 137/79 135/79 140/77 H Pulse Oximetry 97 97 96 Oxygen Delivery Me thod Room Air Room Air Room Air Oxygen Flow Rate 02/23/24 15:45 02/23/24 16:00 02/23/24 16:15 Temperature 97.2 F L 97.3 F L 97.4 F L Pulse Rate 55 L 62 62 Respiratory Rate 16 14 14 Blood Pressure 144/72 H 135/80 138/71 Pulse Oximetry 96 96 97 Oxygen Delivery Me thod Room Air Room Air Room Air Oxygen Flow Rate 02/23/24 16:30 Temperature 97.4 F L Pulse Rate 53 L Respiratory Rate 14 Blood Pressure 137/70 Pulse Oximetry 96 Oxygen Delivery Me thod Room Air Oxygen Flow Rate Assessment and Plan Assessment and plan (1) Status post right knee replacement: Problem comment: 02/23/2024, Dr. Lewis Status: Acute Assessment and Plan: -hospital medicine team is happy to follow this patient through to discharge. There have been no postoperative complications. We agree with aspirin 81 mg p.o. b.i.d. for VTE prophylaxis. Depending on how her immediate postoperative course goes, we can consider acute rehab verses return to memory care at [facility]. (2) Mild cognitive impairment: Problem comment: Mini cog testing is 1 of 5 with abnormal clock face drawing (she missed 2 of the words on recall, and the clock numbers were slightly off, and the hand were in the wrong place). She got the clock right 12/2020 and only missed 1 word 2022. MoCA with OT early 2023 Status: Acute (3) Cerebrovascular disease: Problem comment: Diagnosed with acute/subacute infarcts and moderate chronic ischemic disease on MRI brain done 07/23 for mild cognitive impairment, aspirin started 08/23 Status: Acute (4) Mitral regurgitation: Problem comment: mild MR, Echo was stable 09/16 and 09/19 (due again 3-5Y) Status: Acute (5) Vitamin B12 deficiency without anemia: Problem comment: Vitamin B12 level modestly low at 235 without anemia, as part of evaluation for mild cognitive impairment, 06/25 Status: Acute
[2024-02-23] MEDS: CEFAZOLIN 1 GM in 0.9 % SODIUM CHLORIDE Mini-bag 100 ML IVPB (18:42)
--- NOTE | 2024-02-23 18:51 | PC.NURSE ---
End of Shift: Patient pleasant and cooperative. Patient vitally stable, lungs clear, BS WNL, IV running LR at 75. Patient currently reports no pain, only scheduled tylenol given. Patient ambulated to the toilet but did not urinate and has been up in chair for dinner. Right knee dressing C/D/I. Active ice used on right knee.
[2024-02-23] MEDS: ASPIRIN 81 MG TABLET EC PO (20:49)
[2024-02-23] MEDS: SENNOSIDES 1 TAB TABLET 2 TAB PO (20:49)
[2024-02-23] MEDS: 0.9 % SODIUM CHLORIDE 500 ML IV (22:57)
[2024-02-24] MEDS: CEFAZOLIN 1 GM in 0.9 % SODIUM CHLORIDE Mini-bag 100 ML IVPB (02:57)
[2024-02-24 03:00] VITALS: BP 129/94; PULSE 66; RESP 16; TEMP 36.6; O2SAT 95
[2024-02-24] MEDS: HYDROmorphone 0.5 mg/0.5 ml inj IVP (03:06)
[2024-02-24] MEDS: SODIUM CHLORIDE 0.9 % (FLUSH) 10 ML SYRINGE IVF (03:07)
--- NOTE | 2024-02-24 04:41 | PC.NURSE ---
Shift note: Pt is tolerating regular diet well, ambulated with A1, walker and GB. Pt had hard time making urine from OP. At 0230, IV N/S bolus given which appeared effective as pt had incontinent urine that warranted a change of the whole bedding. Dressing appeared clean, dry and intact. Pt denied any pain to the incision site. Pt became disoriented and frequently needed to self transfer. At 0300, nurse gave pt IV Deluded to keep her comfortable. Pt became stable for a while. Nurse went to her room during normal hourly rounds and pt removing the IV line and had couple of blood spot on the floor, beddings and the gown. Pt cleaned and bedding changed. Pt refused the midnight scheduled Tylenol. Pt is calm at this time but disoriented and forgetful. Vitally stable.
[2024-02-24 06:25] LABS: Basophils Absolute Auto 0.02 K/uL (0.00-0.30); Basophils Percent Auto 0.3 % (0.0-3.0); Hematocrit* 32.2 % (33.0-51.0); Hemoglobin* 10.2 gm/dL (12.0-16.0); Immature Granulocytes Abs Auto 0.02 K/uL (0.00-0.30); Immature Granulocytes Pct Auto 0.3 %; Lymphocytes Percent Auto 11.2 % (20-44); Mean Corpuscular HGB Conc 32 gm/dL (32-36); Mean Corpuscular Hemoglobin 33 pg (26-34); Mean Corpuscular Volume 103 fL (80-100); Monocytes Percent Auto 9.6 % (0.0-11.0); Neutrophils Percent Auto 78.6 % (42.0-72.0); Platelet Count* 183 K/uL (140-440); RDW Coefficient of Variation % 14.3 % (11.5-15.5); Red Blood Count* 3.14 m/uL (4.00-5.20); White Blood Count* 7.71 K/uL (4.50-11.00)
[2024-02-24 06:26] LABS: Slide Review Reflex No
[2024-02-24 06:39] LABS: Sodium* 137 mmol/L (135-149)
[2024-02-24 06:41] LABS: INR 1.08 (0.91-1.10); Prothrombin Time 14.6 Seconds
[2024-02-24 06:42] LABS: Blood Urea Nitrogen* 28 mg/dL (7-30); Creatinine* 0.8 mg/dL (0.5-1.5); Estimated Glomerular Filt Rate 75 ml/min
[2024-02-24] MEDS: ACETAMINOPHEN 500 MG TABLET 1000 MG PO (07:02)
[2024-02-24 07:33] VITALS: BP 110/60; PULSE 63; RESP 16; TEMP 36.4; O2SAT 98
--- NOTE | 2024-02-24 08:14 | P.ORPN_ITS ---
Subjective Subjective Time Seen by Provider: 06:50 Date Seen: 02/24/24 Principal diagnosis: Day 1 s/p right TKA Interval history: Samreen is resting comfortably in bed. She denies right knee pain. Her pain is managed well with Tylenol mostly. She required one dose of Dilaudid overnight. Denies: chest pain, SOB, fever, chills, numbness/tingling distally. Samreen has not yet been seen by PT/OT, but she expresses concerns with the type of walker that we have available in her room. Samreen resides at [facility] in the memory care unit. I spoke with Samreen's nurse who informed me she had a challenging night due to cognitive impairment with , likely worsened due to the anesthesia. Overnight, Samreen became confused and disoriented. She pulled out her IV. Kept undressing. During our conversation, Samreen was pleasant and able to answer my questions appropriately, including location and time questions. Ortho Exam Narrative Exam Narrative: Incision/Dressing: Dressing appears clean and dry. No drainage present. Mepilex intact. Right knee appears moderately swollen but supple with no obvious erythema, fluctuance or excessive warmth. No ecchymosis or erythematous streaking. Warmth around the wound is appropriate. Ice is being utilized as needed. CMS: Intact distally with 2+ Dorsalis pedis and Posterior Tibial pulses. 5/5 motor strength dorsal and plantar flexion. Confirmed sensation distally. Calf: Bilateral calves are supple, with no swelling, pain, tenderness, erythema, discoloration or coolness to the touch. Constitutional: Patient is alert and oriented x3. Patient is in no acute distress and converses without labored breathing. Patient is pleasant and cooperative. Affect is full range and appropriate for the circumstances. Const Vital Signs, click to edit/add: Vital Signs - 24 hr 02/23/24 11:02 02/23/24 12:00 02/23/24 15:00 Temperature 97.6 F 98.2 F Pulse Rate 76 76 60 Pulse Rate [Pulse Oximeter] Respiratory Rate 16 16 14 Blood Pressure 162/77 H 155/88 H 125/67 Blood Pressure [Right Arm] Pulse Oximetry 97 99 95 Oxygen Delivery Method Room Air Nasal Cannula Room Air Oxygen Flow Rate 2 02/23/24 15:05 02/23/24 15:10 02/23/24 15:15 Temperature Pulse Rate 59 L 58 L 71 Pulse Rate [Pulse Oximeter] Respiratory Rate 14 16 16 Blood Pressure 126/70 136/72 141/79 H Blood Pressure [Right Arm] Pulse Oximetry 96 95 95 Oxygen Delivery Method Room Air Room Air Room Air Oxygen Flow Rate 02/23/24 15:20 02/23/24 15:25 02/23/24 15:33 Temperature 97.2 F L 97.1 F L Pulse Rate 69 67 72 Pulse Rate [Pulse Oximeter] Respiratory Rate 16 16 12 Blood Pressure 137/79 135/79 140/77 H Blood Pressure [Right Arm] Pulse Oximetry 97 97 96 Oxygen Delivery Method Room Air Room Air Room Air Oxygen Flow Rate 02/23/24 15:45 02/23/24 16:00 02/23/24 16:15 Temperature 97.2 F L 97.3 F L 97.4 F L Pulse Rate 55 L 62 62 Pulse Rate [Pulse Oximeter] Respiratory Rate 16 14 14 Blood Pressure 144/72 H 135/80 138/71 Blood Pressure [Right Arm] Pulse Oximetry 96 96 97 Oxygen Delivery Method Room Air Room Air Room Air Oxygen Flow Rate 02/23/24 16:30 02/23/24 17:30 02/23/24 18:40 Temperature 97.4 F L 98.1 F 98 F Pulse Rate 53 L 58 L 69 Pulse Rate [Pulse Oximeter] Respiratory Rate 14 16 16 Blood Pressure 137/70 124/67 120/64 Blood Pressure [Right Arm] Pulse Oximetry 96 97 96 Oxygen Delivery Method Room Air Room Air Room Air Oxygen Flow Rate 02/23/24 19:30 02/23/24 20:50 02/23/24 21:30 Temperature 96.6 F L 97.9 F 97.9 F Pulse Rate 58 L 72 61 Pulse Rate [Pulse Oximeter] Respiratory Rate 16 16 16 Blood Pressure 129/65 133/76 143/81 H Blood Pressure [Right Arm] Pulse Oximetry 97 95 96 Oxygen Delivery Method Room Air Room Air Room Air Oxygen Flow Rate 02/23/24 23:00 02/23/24 23:00 02/24/24 03:00 Temperature 97.7 F 97.9 F Pulse Rate Pulse Rate [Pulse Oximeter] 68 66 Respiratory Rate 16 16 16 Blood Pressure Blood Pressure [Right Arm] 146/78 H 129/94 H Pulse Oximetry 96 96 95 Oxygen Delivery Method Room Air Room Air Room Air Oxygen Flow Rate 02/24/24 07:33 10/25/24 07:33 Temperature 97.6 F Pulse Rate Pulse Rate [Pulse Oximeter] 63 Respiratory Rate 16 16 Blood Pressure Blood Pressure [Right Arm] 110/60 Pulse Oximetry 98 98 Oxygen Delivery Method Room Air Room Air Oxygen Flow Rate Assessment and Plan Assessment and plan (1) Status post right knee replacement: Problem details: 02/23/2024, Dr. Lewis Status: Acute Plan - Complete 23 hour perioperative antibiotics. - PT/OT consults for education and assistance. - Weight bear as tolerated with a walker for assistance. - Prescribed analgesics as needed. Patient is content with current narcotic medications. Minimize narcotic pain medication use; wean off and discontinue as soon as possible. - DVT prophylaxis: aspirin 81 mg BID x 30 days. Also, frequent ambulation and ankle pumps when sedentary. - Social consult for discharge planning. - Discharge date unknown at this time. We will wait and see how Samreen does with PT/OT later this morning. If Samreen remains medically stable, her pain is controlled and she is safe with ambulation then she will be discharged later today. - Return to clinic in 1 week for a wound check. Mepilex dressing will be removed at this appointment. Remove sooner if dressing becomes saturated. Dressing is waterproof. May shower. - Return to clinic in [address] Barrett. - Phone Orthopedics with any questions or concerns. [phone]
[2024-02-24] MEDS: SENNOSIDES 1 TAB TABLET 2 TAB PO (08:51)
[2024-02-24] MEDS: ASPIRIN 81 MG TABLET EC PO (08:51)
--- NOTE | 2024-02-24 09:38 | P.DS_ITS ---
DS: Providers Provider Date Seen: 02/24/24 Primary care physician: Echo Burgos MD Consults: OT, PT, SW Attending Physician on discharge: Elbert Barrett MD Date of Discharge: 02/24/24 DS: Diagnosis Discharge Diagnosis (1) Status post right knee replacement: Status: Acute Problem details: 02/23/2024, Dr. Lewis DS: Summary Hospital Course Hospital Course: Samreen presented to the hospital on 02/23/24 for an elective R TKA with Dr. Barrett of Orthopedic Surgery. No operative or anesthetic complications. Patient did well postoperatively and comorbidities remained stable. No changes made to home medications upon discharge. Prophylaxis and pain management per Orthopedic surgery team. Patient will be discharged home ([facility]) with routine follow-up with therapies, orthopedic surgery, and PCP. Time Spent with Patient Time attestation: Total time spent providing and/or coordinating discharge services: Time spent: Less than 30 minutes Exam Narrative: Exam Narrative: GEN: Alert HEENT: EOMIs bilaterally, no scleral icterus CV: RRR, No concerning murmurs R: LCTA bilaterally Ext: No erythema or concerning findings over right knee incision Psych: Mild cognitive impairment is evident, no agitation, redirectable Const: Vital Signs, click to edit/add: Vital Signs - 24 hr 02/23/24 11:02 02/23/24 12:00 02/23/24 15:00 Temperature 97.6 F 98.2 F Pulse Rate 76 76 60 Pulse Rate [Pulse Oximeter] Respiratory Rate 16 16 14 Blood Pressure 162/77 H 155/88 H 125/67 Blood Pressure [Ri ght Arm] Pulse Oximetry 97 99 95 Oxygen Delivery Me thod Room Air Nasal Cannula Room Air Oxygen Flow Rate 2 02/23/24 15:05 02/23/24 15:10 02/23/24 15:15 Temperature Pulse Rate 59 L 58 L 71 Pulse Rate [Pulse Oximeter] Respiratory Rate 14 16 16 Blood Pressure 126/70 136/72 141/79 H Blood Pressure [Ri ght Arm] Pulse Oximetry 96 95 95 Oxygen Delivery Me thod Room Air Room Air Room Air Oxygen Flow Rate 02/23/24 15:20 02/23/24 15:25 02/23/24 15:33 Temperature 97.2 F L 97.1 F L Pulse Rate 69 67 72 Pulse Rate [Pulse Oximeter] Respiratory Rate 16 16 12 Blood Pressure 137/79 135/79 140/77 H Blood Pressure [Ri ght Arm] Pulse Oximetry 97 97 96 Oxygen Delivery Me thod Room Air Room Air Room Air Oxygen Flow Rate 02/23/24 15:45 02/23/24 16:00 02/23/24 16:15 Temperature 97.2 F L 97.3 F L 97.4 F L Pulse Rate 55 L 62 62 Pulse Rate [Pulse Oximeter] Respiratory Rate 16 14 14 Blood Pressure 144/72 H 135/80 138/71 Blood Pressure [Ri ght Arm] Pulse Oximetry 96 96 97 Oxygen Delivery Me thod Room Air Room Air Room Air Oxygen Flow Rate 02/23/24 16:30 02/23/24 17:30 02/23/24 18:40 Temperature 97.4 F L 98.1 F 98 F Pulse Rate 53 L 58 L 69 Pulse Rate [Pulse Oximeter] Respiratory Rate 14 16 16 Blood Pressure 137/70 124/67 120/64 Blood Pressure [Ri ght Arm] Pulse Oximetry 96 97 96 Oxygen Delivery Me thod Room Air Room Air Room Air Oxygen Flow Rate 02/23/24 19:30 02/23/24 20:50 02/23/24 21:30 Temperature 96.6 F L 97.9 F 97.9 F Pulse Rate 58 L 72 61 Pulse Rate [Pulse Oximeter] Respiratory Rate 16 16 16 Blood Pressure 129/65 133/76 143/81 H Blood Pressure [Ri ght Arm] Pulse Oximetry 97 95 96 Oxygen Delivery Me thod Room Air Room Air Room Air Oxygen Flow Rate 02/23/24 23:00 02/23/24 23:00 02/24/24 03:00 Temperature 97.7 F 97.9 F Pulse Rate Pulse Rate [Pulse Oximeter] 68 66 Respiratory Rate 16 16 16 Blood Pressure Blood Pressure [Ri ght Arm] 146/78 H 129/94 H Pulse Oximetry 96 96 95 Oxygen Delivery Me thod Room Air Room Air Room Air Oxygen Flow Rate 02/24/24 07:33 02/24/24 07:33 Temperature 97.6 F Pulse Rate Pulse Rate [Pulse Oximeter] 63 Respiratory Rate 16 16 Blood Pressure Blood Pressure [Ri ght Arm] 110/60 Pulse Oximetry 98 98 Oxygen Delivery Me thod Room Air Room Air Oxygen Flow Rate DS: Data Data Completed and Pending Completed studies during hospitalization: Procedures Excision of Duodenum, Via Natural or Artificial Opening Endoscopic, Diagnostic (09/06/23) Excision of Stomach, Pylorus, Via Natural or Artificial Opening Endoscopic, Diagnostic (09/06/23) Introduction of Remdesivir Anti-infective into Peripheral Vein, Percutaneous Approach, [employer] 5 (09/06/23) Labs on day of discharge: Labs from last 24 hours 02/24/24 06:12 WBC 7.71 RBC 3.14 L Hgb 10.2 L Hct 32.2 L MCV 103 H MCH 33 MCHC 32 RDW Coeff of Ludy 14.3 Plt Count 183 Neut % (Auto) 78.6 H Lymph % (Auto) 11.2 L Payne % (Auto) 9.6 Eos % (Auto) 0.0 Baso % (Auto) 0.3 Neut # (Auto) 6.10 Lymph # (Auto) 0.90 Payne # (Auto) 0.70 Eos # (Auto) 0.00 Baso # (Auto) 0.02 Abs Immat Gran (auto) 0.02 Imm/Tot Granulo (auto) 0.3 INR 1.08 Sodium 137 Potassium 4.0 BUN 28 Creatinine 0.8 Estimated Creat Clear 42.70 Estimated GFR 75 Discharge Plan Discharge Disposition: Home w/ Parent or Adult Discharging Surgeon: Elbert Barrett Follow-Up Appointment: 1 week with Orthopedic PACristina Prescriptions: New aspirin 81 mg Tablet,Delayed Release (Dr/Ec) 81 mg PO BID 30 Days Qty: 60 0RF oxycodone 5 mg Tablet 2.5 - 5 mg PO Q4-6H MDD 6 tabs per day PRN (Reason: Pain) Qty: 42 0RF Rx Instructions: Minimize use. Wean off and discontinue as soon as possible. Continued lidocaine 4 % adhesive patch,medicated 1 patch topical BID PRN loperamide [Imodium A-D] 2 mg capsule 2 mg PO Q6H PRN (Reason: loose stool) Qty: 60 2RF cyanocobalamin (vitamin B-12) [Vitamin B-12] 1,000 mcg tablet 1,000 mcg PO QDAY Qty: 90 3RF pantoprazole 40 mg tablet,delayed release (DR/EC) 40 mg PO QDAY Qty: 90 3RF cholecalciferol (vitamin D3) 50 mcg (2,000 unit) tablet 50 mcg PO QDAY Qty: 90 3RF alendronate 70 mg tablet 70 mg PO QWEEK Qty: 12 3RF calcium carbonate-vitamin D3 [Oyster Shell Calcium-Vit D3] 500 mg-5 mcg (200 unit) tablet 1 tab PO BID Qty: 60 10RF senna 8.6 mg capsule 8.6 mg PO QDAY PRN (Reason: constipation) Qty: 90 3RF Changed acetaminophen 500 mg tablet 500 - 1,000 mg PO Q6H MDD 4,000 mg per day PRN (Reason: pain) Qty: 120 5RF Discontinued acetaminophen 325 mg Tablet 650 mg PO QID Qty: 240 0RF aspirin [Children's Aspirin] 81 mg tablet,chewable 81 mg PO DAILY Qty: 30 11RF Activity Level: Activity as Tolerated, Weight Bearing as Tolerated and Use Walker Activity Detail: Wound: ? Do not remove original dressing; we will remove this at first postop visit in 1 week. Only remove dressing if integrity is in question. ? No immersing wound in water; showering okay; light scrub with your hand and body soap, rinse, dab dry ? Sutures are under the skin, will dissolve; allow surgical glue to come off naturally; do not scrub the wound or apply ointments/lotions ? Call our office with any redness that streaks, excessive drainage from the wound, or wound gapping. Ice/Elevate: ? Ice as needed for swelling and discomfort (cryocuff or ice pack); elevate extremity frequently above the heart. Motion/Exercise: ? Weight bear as tolerated operative extremity (walker/cane for ambulation assistance as needed) ? Per PT/OT. ? Straight leg raises daily: 1-2 sets of 10 reps Pain Medications: ? Oral narcotic as prescribed. Wean as tolerated. Additional acetaminophen and ibuprofen as needed. Blood Clot Prevention (DVT): ? Medication: 81 mg aspirin by mouth twice daily (1 month) Driving: ? Do not drive while taking narcotic pain medication ? Anticipate 4-6 weeks no [address] if operative leg is driving leg Dental: ? No elective dental work for 3 months post-op. If there is an urgent/emergent dental need, contact our office for an antibiotic prescription. Smoking/Alcohol: ? Do not smoke; do no drink alcohol especially when taking postoperative oral narcotic medication Seek Care from you Primary Care Provider if you experience the following issues in the postoperative phase and beyond: ? Bacterial infections such as: pneumonia, bacterial skin infection (cellulitis), UTI, high fever, chills unrelated to the operative body part - call your primary care physician urgently for treatment in hopes to protect your health and the metal implant. Referrals: ? PT, OT per patient preference - evaluate treat total knee arthroplasty protocol (gait training, ROM, ADLs) Vaccines: ? No vaccines until 4-6 weeks postop Follow up: ? PA-C visit in 1 week ? Ortho surgeon follow-up in 6 weeks; repeat radiographs three views operative knee If there are any acute concerns regarding your surgery, please call our orthopedic clinic ([phone]) Discharge Diet: Regular Patient Instructions: Aspirin (By mouth), Oxycodone, Rapid Release (By mouth), Total Knee Replacement (DC) Follow-up: Viviana Carvalho PA-C [Physician Hand [employer]] - Echo Burgos MD [Primary Care Provider] - Betzy Olivas PA-C [Physician [employer]] - 02/29/24 9:30 am ([facility] for follow-up.) Discharge Orders: Discharge Order (Routine); Ordered 02/24/24 Ordered By: Viviana Carvalho
--- NOTE | 2024-02-24 10:34 | PC.SOCIAL ---
Discharge plan: Spoke with dtr who is aware and agrees with plan for discharge back to [facility] with out-pt therapy services provided by therapy team at [facility]. Dtr to transport pt at discharge. Called and spoke with nurse at [facility], [facility], who is aware and agrees with this plan. Faxed requested information to [facility]. RN to complete nurse to nurse prior to discharge to [facility] at [phone].
[2024-02-24] MEDS: OMEPRAZOLE 20 MG CAPSULE DR 40 MG PO (10:47)
--- NOTE | 2024-02-24 11:21 | PC.NURSE ---
Discharge: patient pleasant and cooperative. Up with one assist, walker and gait belt. Tolerating regular diet, denies nausea. Pain managed with PRN acetaminophen and ice. Worked with PT/OT today. Vitals stable and WNL, dressing C/D/I. Discharge instructions reviewed with patient and family. Nurse to nurse report given to RAMSEY Christianson. Patient discharged @1131.
== END 2024-02-24 10:59 | disposition home or self-care (01) ==
LOC: OR 10:22 → MEDSURG 10:25
PROVIDERS: PCP Internal Medicine; Visit Provider Orthopaedic Surgery
PROC: (CPT 27447; principal; 2024-02-23 11:45)
DX: M17.11 Unilateral primary osteoarthritis, right knee (principal); G89.18 Other acute postprocedural pain; F01.50 Vascular dementia, unspecified severity, without behavioral disturbance, psychotic disturbance, mood disturbance, and anxiety; I67.9 Cerebrovascular disease, unspecified; R41.89 Other symptoms and signs involving cognitive functions and awareness; E53.8 Deficiency of other specified B group vitamins
CPT/HCPCS: 27447; 01402; 36415; 64447; 64454; 73560; 76942; 82565; 84132; 84295; 84520; 85025; 85610; 87081; 97110; 97116; 97161; 97165; 97535; 99100; A9270; C1776; J0665; J0690; J1100; J1171; J2250; J2405; J2704; J3010; J7030; J7120

== ENCOUNTER 2024-03-05 13:00 | Outpatient (RCR) | payer MEDICARE, SELFPAY ==
--- NOTE | 2024-02-16 15:33 | PT.OPEX ---
PT [place] Outpatient Eval PT [facility] Outpatient Eval Start: 02/16/24 11:08 Freq: Status: Active Protocol: Document 02/16/24 14:22 NLR (Rec: 02/16/24 15:19 NLR [id number]) E-signed By Elizabeth Chaudhari DPT Physical Therapy Outpatient Evaluation Insurance Information Recert Due Date 05/16/24 Insurance Name Medicare B,Other; See Comments Insurance Information/Comments [employer] Advantage Medical Diagnosis M17.11 Unilateral primary osteoarthritis, right knee Z96.651 Presence of artificial right knee joint Treating Diagnosis M25.561 Pain in right knee M25.661 Stiffness in right knee Imaging Report Information 01/09/24 Xray: AP and lateral views of both knees were obtained today. These show end-stage patellofemoral joint osteoarthritis bilaterally right greater than left with kmev-jr-lhkh joint space narrowing on the right, near xxfa-tm-aaks on the left, osteophytic spurring bilaterally. There is valgus malalignment bilaterally left worse than right. Referring MD Elbert Barrett MD (Echo Burgos MD Primary) Subjective Preferred Name SAMREEN Smith Patient arrives for pre- operative PT evaluation accompanied by her daughter Jose. She reports she has had issues with right sided knee pain for about three years. She did have a fall in August of this year but not contributory to her current knee pain. She also has left sided knee pain, and plans to have that knee done in the future. She had a pelvis fracture with her fall but no ongoing pain. Pain Comments 0/10 in sitting. Walking pain can go to 10/10. Pain can be sharp and achy, depends on her activity. Worsens with uneven ground, stairs, curbs, general walking. She uses Tylenol two times per day. Date of Last Physician Visit 01/09/24 Date of Next Physician Visit 02/29/24 Date of Surgery (If applicable) 02/23/24 Current Work Status Retired Occupation Patient [facility] - she has a bedroom and bathroom, and they bring her three meals a day. Staff does cleaning and laundry for her. Precautions Treatment Precautions/Contraindications Memory Care Weight Bearing Status Weight Bear as Tolerated Therapy Limitations/Systems Review Cognition Objective Other/Pertinent Objective HAND DOM: RIGHT ROM: L knee AROM 10-120, R knee AROM 5-115 STRENGTH: Grossly WFL EDEMA: None FOOTWEAR: Flat slip on athletic type shoe. OTHER PMH: Lives in assisted living for memory care Assessment Assessment/Impression Samreen is a very pleasant 78 year old female who presents for pre-operative PT evaluation for right knee total knee arthroplasty scheduled on 02/23/[address] Barrett. She has B knee pain, she lives in a memory care unit with assistance, and in discussion with her daughter she likely may go to a SNF for rehab following surgery. Currently she is scheduled for OP PT at [facility] rehabilitation services, however if she does get placed short term after surgery these will be canceled . She is appropriate for post TKA rehabilitation for goals as stated. Primary Functional Limitations Difficulty walking, standing, sit to/from stand, walking on uneven surfaces and curbs, difficulty doing stairs. Plan of Care Rehabilitation Potential Good Rehabilitation Potential Comments Patient is otherwise healthy asside from memory care needs and motivated to improve in order to return to prior level of function. Physical Therapy Goals 1. Patient will be independent with home exercise program as instructed, modified and progressed by physical therapist in order to be independently and actively participating in their rehabilitation and return to prior level of function. Goal to be achieved by 05/16/2024. 2. Patient will participate in post TKA protocol strengthening and range of motion program in order to achieve improvement in right knee ROM to 0-120 degrees for return to functional ROM, improved gait mechanics, improved ability for everyday ambulation and improved ability to negotiate stairs and curbs for everyday mobility. . Goal to be achieved by 05/16/2024. 3. Patient will demonstrate ability to walk for 30 minutes (s) without significant increase in pain greater than 2/10 to allow patient to be able to safely and independently return to participation in desired level of function with daily activities such walking for exercise, going to appointments, grocery shopping without pain or difficulty. Goal to be achieved by 2024. Coordination/Communication With Referral Source Treatment Plan/Direct Interventions Gait Training,Ice/Cold/ Vasopneumatic,Manual Therapy, Neuromuscular Re-ed,Self-Care/ Home Management,Therapeutic Activities,Therapeutic Exercises Frequency/Duration 1-2 visits per week for 10-12 weeks to achieve goals as stated Patient Will Be Discharged From Therapy Completion of LTG(s),Skills Plateau,Independent w/HEP, Independently Progressing Evaluation Billing Untimed Code Treatment Minutes 30 PT Eval No Charge No Complexity Moderate Certification Information Initial Certification Date 02/16/24 Ending Certification Date 05/16/24 Provider Signature Required Yes Provider Signature Shows Agreement With POC & Medical Necessity Physician NPI Number Write NPI# Here Physician Comment/Change : Physician Signature & Date Requested Please Sign/Date Here
== END 2024-07-03 23:59 | disposition home or self-care (01) ==
PROVIDERS: PCP Internal Medicine; Visit Provider Orthopaedic Surgery
DX: M17.11 Unilateral primary osteoarthritis, right knee (principal); Z96.651 Presence of right artificial knee joint; M25.561 Pain in right knee; M25.661 Stiffness of right knee, not elsewhere classified; Z51.89 Encounter for other specified aftercare
CPT/HCPCS: 97110; 97116; 97162; 97164

== ENCOUNTER 2024-09-10 14:00 | Outpatient (CLI) | payer MEDICARE, SELFPAY | END 2024-09-10 14:01 | disposition home or self-care (01) | PROVIDERS: PCP Internal Medicine; Visit Provider Internal Medicine | DX: E53.8 Deficiency of other specified B group vitamins (principal); M81.0 Age-related osteoporosis without current pathological fracture; I67.9 Cerebrovascular disease, unspecified | CPT/HCPCS: 80048; 82306; 82607 ==

== ENCOUNTER 2025-03-05 20:33 | Outpatient (CLI) | payer OTHER, SELFPAY | END 2025-03-05 20:34 | disposition home or self-care (01) | PROVIDERS: PCP Internal Medicine; Visit Provider Emergency Medicine | DX: S79.912A Unspecified injury of left hip, initial encounter (principal); W19.XXXA Unspecified fall, initial encounter; Y92.039 Unspecified place in apartment as the place of occurrence of the external cause | CPT/HCPCS: A0425; A0427 ==

== ENCOUNTER 2025-03-05 20:46 | Inpatient (IN) | payer MEDICARE, OTHER, SELFPAY ==
[2025-03-05] VITALS (19 sets, daily range): BP systolic 155–185; BP diastolic 73–103; PULSE 92–110; RESP 16–20; TEMP 36.6–36.7; O2SAT 95–98; BMI 25.1; BMI 27.9
--- OUTSIDE RECORDS SUMMARY | 2025-03-05 20:48 | XMS_ITS | Clinical Summary ---
Author Organization [facility] Address [address] [place] [address] Care Team Providers Care Gas Mask Assembler Name Role Phone Echo Burgos MD Primary Care Provider [phone] Allergies No known active allergies Medications alendronate (FOSAMAX) 70 mg tablet Take 1 [...] Years Used Date Smoking Tobacco: Never Assessed Comments Unknown Sex and Gender Information Value Date Recorded Sex Assigned at Not on file Legal Sex Female 7:11 PM CDT Gender Identity Not on file Sexual Orientation [...] Health Maintenance Due Date Last Done Comments Tetanus booster 1955 Depression screening for age 12+ 1956 BMI (ht and wt on same day) for age 18+ 1962 Pneumococcal series for age 50+ (1 of 1 - PCV) 1994 Zoster (shingles) series for age 50+ (1 of 2) 1994 DEXA/DXA scan for age 65+ 2009 RSV vaccine for adults or (1 - 1-dose 75+ series) 2019 Influenza Vaccine (#1) 2024 Hepatitis B series for 19+ Aged Out N o longer eligible based on patient's age to complete this topic Insurance [facility] AETNA Care Teams Gas Mask Assembler Relationship Specialty Start Date End Date Echo Burgos MD [address] [place] [address] PCP - General Internal Medicine 09/30/17
--- OUTSIDE RECORDS SUMMARY | 2025-03-05 20:48 | XMS_ITS | Data Portability ---
Author Organization [place] [facility] [employer] Address [address] [facility] [place] [address] Assessment Encounter Date Assessment Date Assessment LastModified by Organization Details LastModified Time 06/08/2022 06/08/2022 We discussed foot care for pronation and hallux valgus b/l. Pt. wished to proceed with discussion of orthotics and Subiomed for knees before considering surgical treatment. [email or web address] Not available 07/02/2022 18:45:37 06/30/2022 06/30/2022 We discussed foot care for pronation and hallux valgus b/l. Pt. wished to proceed with discussion of Subiomed for knees before she considers knee surgery. Will follow to evaluate orthoic progress and trial subiomed next visit. [email or web address] Not available 08/04/2022 20:56:24 07/28/2022 07/28/2022 We discussed foot care for pronation and hallux valgus b/l. Pt. wished to proceed with orthotics for knees before considering surgical treatment. [email or web address] Not available 07/28/2022 16:30:25 Plan of Treatment [...] Address Organization Details Recorded Time Hammer toe 666605962 Active 2019 Hammer toe; Original Code: 399056262 Original Codesyste m: SNOMED CT Classi fication: Medical C onfirmati on Status: Confirmed Not Available [employer] 03/07/202 3 09:06:25 Callosity 483142319 Active 2019 Callosity ; Original Code: 750760330 Original Codesyste m: SNOMED CT Classi fication: Medical C onfirmati on Status: Confirmed Not Available [facility] 3 09:06:25 Acquired hallux valgus 19686101 Active 2019 Acquired hallux valgus; Original Code: 760874994 Original Codesyste m: SNOMED CT Classi fication: Medical C onfirmati on Status: Confirmed Acquire d hallux valgus; Original Code: 980845429 Original Codesyste m: SNOMED CT Classi fication: Medical C onfirmati on Status: Confirmed ; Start Date : 0 Not Available [facility] 3 09:06:25 Pain of knee region 4558114968 Active 2020 Pain of knee region; Original Code: 857153345 3 Origina l Codesyste m: SNOMED CT Classi fication: Medical C onfirmati on Status: Confirmed Not Available [facility] 3 09:06:25 Problem Notes None recorded. Medical [...] Updated DateTime 06/08/2022 167.64 cm 25.8 kg/m2 41135.78 g Bernice Koehler [facility] 06/08/2022 15:08:56 Social History None recorded. Functional Status None recorded. Mental Status None recorded. Family History Nothing Reported. Medical History No medical history recorded. Gynecological HistoryNo gynecological history recorded. Obstetrics History GPAL:G 0 P 0 0 0 0 Past Encounters Encounter ID Performer Location Encounter Start Date Encounter Closed Date Diagnosis/Indication Diagnosis SNOMED-CT Code Diagnosis ICD10 Code Diagnosis IMO Codes Diagnosis Note [id number] Cody Grimaldo DPM [facility] [address] [place] [address] 06/08/2022 15:06:04 06/09/2022 10:20:26 Pain in left foot 1293108418 87640 M79.672 Pain in right foot 85012 39329 42287 M79.671 Hallux rhoda alphonso AND bunion 087482789 M20.11 M20.12 Hammer toe 478045478 M20 .41 Pain of ri ght knee joint 9923529616 01463 M25.561 Pain of le ft knee joint 0343257359 57762 M25.562 [id number] Cody Grimaldo DPM [facility] [address] [place] [address] 07/16/2022 10:04:03 08/05/2022 10:05:00 Pain in left foot 6055136407 01122 M79.672 Pain in right foot 14226 24880 51104 M79.671 Hallux rhoda alphonso AND bunion 759299314 M20.11 M20.12 Hammer toe 471834085 M20 .41 Pain of ri ght knee joint 1635068029 99668 M25.561 Pain of le ft knee joint 8441703177 67733 M25.562 [id number] Cody Grimaldo DPM [facility] [address] [place] [address] 07/28/2022 15:14:36 07/28/2022 16:43:29 Pain in left foot 3760600068 20934 M79.672 Pain in right foot 42440 91458 94248 M79.671 Hallux rhoda alphonso AND bunion 314239250 M20.11 M20.12 Hammer toe 013492707 M20 .41 Pain of ri ght knee joint 3501760007 84086 M25.561 Pain of le ft knee joint 1471315691 79057 M25.562 Health Concerns Section Related Observation LastModified by Organization Detai ls LastModified Time None Recorded Concern Status LastModified by Organization Details LastModified Time None Recorded Advance Directives Directive None Recorded Payers Insurance Date Sequence Insurance Name Policy Number Policy [place] Covered Member ID [place] Member ID Guarantor Name 07/28/2022 1 [employer] (POS II) [id number] Samreen Hernandez [id number] Samreen Hernandez 07/28/2022 1 MEDICARE [place]: [employer] [facility] Samreen Santosy [id number] Samreen Lyla David Notes Date Note Type Note Provider Name and Address Organization Details Recorded Time 06/08/2022 text/html Increasing pain in shoes with activity related to bunions . Prior shoe changes and conservative care. Has used orthotics for some time. EDNA Hodge - [facility] 07/02/2022 18:46:14 06/30/2022 text/html Increasing pain in shoes with activity related to bunions . Prior shoe changes and conservative care. Orthotic modifications have failed to significantly im prove symptoms. Continued knee pain b/l. EDNA Hodge - [facility] 08/04/2022 20:56:39 07/28/2022 text/html Increasing pain in shoes with activity related to bunions . Prior shoe changes and conservative care. Has used orthotics for some time. EDNA Hodge [facility] 07/28/2022 16:32:09 OBGyn Episode No OBEpisode recorded.
--- NOTE | 2025-03-05 20:56 | CRLHL7_ITS ---
For Patients: As a result of the Cures Act, medical imaging exams and procedure reports are released immediately into your electronic medical record. You may view this report before your referring provider. If you have questions, please contact your health care provider. INDICATION: Trauma and pain. TECHNIQUE: Pelvis and left hip 3 views. COMPARISON: None. FINDINGS: Comminuted displaced fracture of the left femoral intertrochanteric region. Old fracture of the right obturator ring. Joint alignment is maintained. Mild bilateral hip degenerative changes. Decreased bone mineralization. Left hip soft tissue swelling. IMPRESSION: Comminuted displaced left femoral intertrochanteric fracture. Dictated by Brandon Tim MD @ 03/05/2025 9:42:10 PM (Electronically Signed)
--- NOTE | 2025-03-05 20:57 | ED.LOWEXIN ---
HPI - Extremity Injury (Lower) General Time Seen by Provider: 20:57 Date Seen: 03/05/25 Chief Complaint: Hip Injury/Pain Stated Complaint: Fall/Left hip pain Time Seen by Provider: 03/05/25 20:57 Source: patient and EMS Mode of arrival: EMS History of Present Illness HPI Narrative: Samreen is a 79 yo female who presents to the emergency department from [facility] by EMS for evaluation left hip pain. Patient does have a history of cerebrovascular disease, mild cognitive impairment, mitral regurg, B12 deficiency, osteoporosis, migraine. Per EMS staff found her on the ground complaining of left hip pain with movement. Patient states that she was trying to get from her bed to the chair however slipped and fell onto her left hip. Patient states that she does not think she hit her head, she patient reports not losing consciousness. Patient states she typically walks with walker. Patient denies any head pain, neck pain, back pain, chest pain, shortness of breath, no other complaints. Blood glucose 125 prior to arrival by EMS. No medications given prior to arrival. No other complaints. Related Data Home Medications ?Medication ?Instructions ?Recorded ?Confirmed food supplemt, lactose-reduced ea PO DAILY 09/10/24 02/18/25 0.04 gram-1.05 kcal/mL oral liquid (Boost Breeze Nutritional) Previous Rx's ?Medication ?Instructions ?Recorded alendronate 70 mg tablet 70 mg PO QWEEK #12 tabs 09/10/24 pantoprazole 40 mg tablet,delayed 40 mg PO QDAY #90 tabs 09/10/24 release cholecalciferol (vitamin D3) 50 50 mcg PO QDAY #90 tabs 10/19/24 mcg (2,000 unit) tablet cyanocobalamin (vitamin B-12) 1,000 mcg PO QDAY #90 tabs 10/19/24 1,000 mcg tablet (Vitamin B-12) calcium 500 mg (as 1 tab PO BID #60 tabs 11/06/24 carbonate)-vitamin D3 5 mcg (200 unit) tablet (Oyster Shell Calcium-Vitamin D3) loperamide 2 mg capsule (Imodium 2 mg PO Q6H PRN loose stool #60 12/06/24 A-D) caps sennosides 8.6 mg tablet (senna) 8.6 mg PO QDAY PRN constipation 01/03/25 #90 tabs acetaminophen 500 mg tablet 500 - 1,000 mg (1 - 2 x 500 mg) PO 02/07/25 TID pain #120 tabs Allergies Allergy/AdvReac Type Severity Reaction Status Date / Time No Known Drug Allergies Allergy Verified 02/18/25 11:19 Review of Systems Narrative: Past medical history, past surgical history, medications, allergies, family history, and social history were reviewed with the patient. No additional pertinent items. A medically appropriate review of systems was performed with pertinent positives and negatives noted in HPI, all other systems negative. PFSH PFSH Medical History Mitral regurgitation ?I34.0 - Nonrheumatic mitral (valve) insufficiency (ICD-10) Surgical History History of arthroplasty of right knee (02/23/24) ?Z96.651 - Presence of right artificial knee joint (ICD-10) History of blepharoplasty ?Z98.890 - Other specified postprocedural states (ICD-10) History of cataract surgery ?Z98.49 - Cataract extraction status, unspecified eye (ICD-10) History of laparoscopic cholecystectomy ?Z90.49 - Acquired absence of other specified parts of digestive tract (ICD-10) History of vaginal hysterectomy ?Z90.710 - Acquired absence of both cervix and uterus (ICD-10) Social History (Updated 09/10/24 @ 14:36 by Tonja Prieto ~ CT[facility]) What is your current living situation?: I presently have a place to live Problems where you live: pests, such as bugs, ants, or mice and no known problems Problems where you live details: pests during summer mostly In the past 12 months, utilities in danger of being shut off: no In past 12 months, lack of transportation kept you from medical appts, meetings, work, or getting things needed for daily living: no In the past 12 mos, have been you worried that your food would run out before you had money to buy more?: never true In the past 12 mos, the food you bought just didn't last and you didn't have money to buy more?: never true Smoking Status: Former smoker What tobacco products do you use: cigarettes Smoking quit date/years: >15 years ago Do you use any of these nicotine containing products: None Second hand tobacco smoke exposure: No How often do you have a drink containing alcohol: never How often do you have six or more drinks on one occasion: Never AUDIT-C Alcohol total score: 0 Non-prescribed substance use: denies use Caffeine: Yes (5-6 cups/day) How often does anyone, including family, friends and others, physically hurt you: never How often does anyone, including family, friends and others, insult or talk down to you: never How often does anyone, including family, friends and others, threaten you with harm: never How often does anyone, including family, friends and others, scream or curse at you: never service: No Health Related Social Needs: Inadequate housing (Z59.1) Exam Narrative: Exam Narrative: General: Afebrile, no acute distress HEENT: Normocephalic, atraumatic, conjunctiva normal. MMM Neck: non-tender, supple Cardio: regular rate. regular rhythm Resp: Normal work of breathing, no respiratory distress, lungs clear bilaterally, no wheezing, rhonchi, rales Chest/Back: no visual signs of trauma, no midline tenderness, no CVA tenderness Abdomen: soft, non distension, no tenderness, no peritoneal signs Neuro: alert and fully oriented. CN II-XII grossly intact. Grossly normal strength and sensation in all extremities. MSK: +TTP Left hip and left thight, left lower extremity shortened and rotated. Pain with log roll. Integumentary/Skin: no rash visualized, normal color Psych: normal affect, normal behavior Const: Vital Signs, click to edit/add: Vital Signs - 24 hr 03/05/25 20:51 03/05/25 22:17 Temperature 98.1 F Pulse Rate [Pulse Oximeter] 92 Respiratory Rate 18 Blood Pressure [Ri ght Upper Arm] 185/103 H Pulse Oximetry 97 97 Oxygen Delivery Me thod Room Air Course Vital Signs Vital signs: Initial Vital Signs Temperature 98.1 F 03/05/25 20:51 Temperature Source Temporal Artery Scan 03/05/25 20:51 Pulse Rate 92 03/05/25 20:51 Respiratory Rate 18 03/05/25 20:51 Blood Pressure 185/103 H 03/05/25 20:51 Blood Pressure Mean 130 H 03/05/25 20:51 Blood Pressure Position Sitting 03/05/25 20:51 Pulse Oximetry 97 03/05/25 20:51 Oxygen Delivery Method Room Air 03/05/25 20:51 Vital Signs Temperature 98.1 F 03/05/25 20:51 Pulse Rate 92 03/05/25 20:51 Respiratory Rate 18 03/05/25 20:51 Blood Pressure 185/103 H 03/05/25 20:51 Pulse Oximetry 97 03/05/25 20:51 Oxygen Delivery Method Room Air 03/05/25 20:51 Temperature 98.1 F 03/05/25 20:51 Pulse Rate 92 03/05/25 20:51 Respiratory Rate 18 03/05/25 20:51 Blood Pressure 185/103 H 03/05/25 20:51 Pulse Oximetry 97 03/05/25 22:17 Oxygen Delivery Method Room Air 03/05/25 20:51 MDM - Extremity Injury (Lower) MDM Narrative Medical decision making narrative: Samreen is a 79 yo female who presents to the emergency department from [facility] by EMS for evaluation left hip pain. Upon arrival patient is nontoxic appearing, afebrile, no distress. Patient reports falling onto her left hip and concerns that she broke her left hip. No medications for pain prior to arrival. Differential diagnosis includes but is not limited to contusion versus fracture versus dislocation versus hematoma among others. I personally reviewed interpreted x-ray of the left hip which demonstrates comminuted displaced femoral intertrochanteric fracture. I discussed patient with orthopedics who agrees with admission for surgery tomorrow. Plan for NPO at midnight, will obtain pre-op labs, EKG, CXR. I discussed patient management with Internal Medicine team/hospitalist who agrees with admission. Patient understands agrees the plan. Medical Records Attestation: I reviewed the patient's medical records. Lab Data Attestation: I reviewed the patient's lab results. Imaging Data xr hip: Attestation: I have reviewed the pertinent imaging results. Radiologist's impression: INDICATION: Trauma and pain. TECHNIQUE: Pelvis and left hip 3 views. COMPARISON: None. FINDINGS: Comminuted displaced fracture of the left femoral intertrochanteric region. Old fracture of the right obturator ring. Joint alignment is maintained. Mild bilateral hip degenerative changes. Decreased bone mineralization. Left hip soft tissue swelling. IMPRESSION: Comminuted displaced left femoral intertrochanteric fracture. Discharge Plan Discharge Clinical Impression: Closed fracture of left hip Patient Disposition: Admitted As Inpatient Condition: Stable
--- NOTE | 2025-03-05 22:15 | CRLHL7_ITS ---
For Patients: As a result of the Cures Act, medical imaging exams and procedure reports are released immediately into your electronic medical record. You may view this report before your referring provider. If you have questions, please contact your health care provider. INDICATION: Left hip injury/fracture. TECHNIQUE: Left hip 1 view. COMPARISON: Earlier same day pelvis and left hip radiographs. FINDINGS: Exam limited by patient body habitus. Again seen is a comminuted displaced fracture of the left femur intertrochanteric region. The femoral head appears aligned with the acetabulum. Soft tissues are unremarkable. IMPRESSION: Comminuted displaced left femur intertrochanteric fracture again seen. Dictated by Amarilis Garcia MD @ 03/05/2025 11:08:51 PM (Electronically Signed)
--- NOTE | 2025-03-05 22:28 | CRLHL7_ITS ---
For Patients: As a result of the Century Cures Act, medical imaging exams and procedure reports are released immediately into your electronic medical record. You may view this report before your referring provider. If you have questions, please contact your health care provider. INDICATION: Pre-op. TECHNIQUE: Chest 1 view. COMPARISON: Chest radiograph 09/06/2023. FINDINGS: Cardiovascular: Heart size and pulmonary vasculature are within normal limits. Tortuous aorta. Lungs and pleural spaces: Biapical pleural capping and scattered parenchymal scarring similar to prior exam. No focal consolidation, pleural effusion, or pneumothorax. Bones and soft tissues: Elevation of the right hemidiaphragm. Surgical clips right upper quadrant. IMPRESSION: No acute cardiopulmonary findings. Dictated by Amarilis Garcia MD @ 03/05/2025 11:04:53 PM (Electronically Signed)
[2025-03-05 22:48] LABS: Albumin* 3.9 g/dL (3.3-5.0); Chloride* 103 mmol/L (96-114); Sodium* 136 mmol/L (135-149)
[2025-03-05 22:49] LABS: Potassium* 4.1 mmol/L (3.6-5.1)
[2025-03-05 22:51] LABS: Alanine Aminotransferase* 14 U/L (4-35); Alkaline Phosphatase* 81 U/L (40-150); Anion Gap 7 mEq/L (7-15); Aspartate Amino Transferase* 21 U/L (12-35); Bilirubin Total* 0.4 mg/dL (0.1-1.5); Blood Urea Nitrogen* 24 mg/dL (7-30); Carbon Dioxide* 26 mmol/L (20-32); Creatinine* 0.8 mg/dL (0.5-1.5); Est. Creatinine Clearance* 43.63; Estimated Glomerular Filt Rate 74 ml/min; Total Protein* 7.1 g/dL (6.0-8.3)
[2025-03-05 22:52] LABS: Calcium* 9.0 mg/dL (8.4-10.6); Glucose* 122 mg/dL (60-115)
[2025-03-05 22:58] LABS: Hematocrit* 35.9 % (33.0-51.0); Hemoglobin* 11.4 gm/dL (12.0-16.0); Immature Granulocytes Pct Auto 0.3 %; Mean Corpuscular HGB Conc 32 gm/dL (32-36); Mean Corpuscular Hemoglobin 33 pg (26-34); Mean Corpuscular Volume 104 fL (80-100); RDW Coefficient of Variation % 13.6 % (11.5-15.5); Red Blood Count* 3.46 m/uL (4.00-5.20); White Blood Count* 12.14 K/uL (4.50-11.00)
[2025-03-05 22:59] LABS: Immature Granulocytes Abs Auto 0.00 K/uL (0.00-0.30); Lymphocytes Absolute Auto 1.30 K/uL (0.90-2.90); Slide Review Reflex No
[2025-03-05 23:01] LABS: INR 0.99 (0.91-1.10); Prothrombin Time 13.9 Seconds
[2025-03-06] VITALS (25 sets, daily range): BP systolic 108–183; BP diastolic 51–87; PULSE 75–110; RESP 16–18; TEMP 35.9–37; O2SAT 94–97
--- NOTE | 2025-03-06 00:04 | PM.IMHP1 ---
Assessment and Plan Assessment and plan (1) Closed fracture of left hip: Problem comment: -plain film shows comminuted displaced left femur intertrochanteric fracture -ED provider discussed with Orthopedic Surgery, plan for OR 03/06 -pain management, repositioning, bedrest -NPO, IVF -SCDs for VTE PPX Status: Acute (2) Mild cognitive impairment: Problem comment: -resident [facility], [facility] with OT early 2023 -monitor for perioperative delirium Status: Acute Total Time Spent Total Time Spent: Today I spent 75 minutes seeing the patient, reviewing Expanse and EPIC notes/diagnostics, discussing the care plan with our care time that includes social work, PT/OT, pharmacy, RT, snf and documenting my impressions and plan in the medical record. Hospitalist- H&P: HPI History of Present Illness Date Seen: 03/06/25 Chief complaint: Fall/Left hip pain Narrative: Samreen Hernandez is a 79 year old female past medical history significant for osteoporosis, migraines, mild cognitive impairment, CVD is admitted to the medical floor from the ED for further management left hip fracture. Patient is a resident at [facility], and is the only historian present. Reports falling earlier this evening/afternoon. Per report, patient was attempting to get from her bed to the chair but slipped and fell onto her left hip. Denies any other injury related with this. Typically walks with a walker. Currently denies headache or neck pain. Denies upper extremity pains of any sort. Denies chest pain or shortness of breath. Denies recent fevers. Denies nausea or recent vomiting. Believes her last bowel movement was this afternoon. PCP is Dr. Burgos. She reports quitting smoking years ago. Drinks alcohol once in a [place]. Has had previous surgeries without anesthesia complications. No personal or family history of bleeding disorders known. I have reviewed her labs, EKG, CXR, imaging, most recent PCP documentation. Appropriate for planned surgical procedure. Review of Systems Narrative: REVIEW OF SYSTEMS: Complete review of systems performed and negative unless otherwise stated in HPI or below. Medical Decision Making Medical Decision Making Code Status: Full Has patient completed a Health Care Directive: Yes During This Stay, Who Would You Like To Make Decisions For You In The Event You Are Unable To Make Them For Yourself?: Daughters PFSH PFSH Medical History Mitral regurgitation ?I34.0 - Nonrheumatic mitral (valve) insufficiency (ICD-10) Surgical History History of arthroplasty of right knee (02/23/24) ?Z96.651 - Presence of right artificial knee joint (ICD-10) History of blepharoplasty ?Z98.890 - Other specified postprocedural states (ICD-10) History of cataract surgery ?Z98.49 - Cataract extraction status, unspecified eye (ICD-10) History of laparoscopic cholecystectomy ?Z90.49 - Acquired absence of other specified parts of digestive tract (ICD-10) History of vaginal hysterectomy ?Z90.710 - Acquired absence of both cervix and uterus (ICD-10) Social History What is your current living situation?: I presently have a place to live Problems where you live: pests, such as bugs, ants, or mice and no known problems Problems where you live details: pests during summer mostly In the past 12 months, utilities in danger of being shut off: no In past 12 months, lack of transportation kept you from medical appts, meetings, work, or getting things needed for daily living: no In the past 12 mos, have been you worried that your food would run out before you had money to buy more?: never true In the past 12 mos, the food you bought just didn't last and you didn't have money to buy more?: never true Smoking Status: Former smoker What tobacco products do you use: cigarettes Smoking quit date/years: >15 years ago Do you use any of these nicotine containing products: None Second hand tobacco smoke exposure: No How often do you have a drink containing alcohol: never How often do you have six or more drinks on one occasion: Never AUDIT-C Alcohol total score: 0 Non-prescribed substance use: denies use Caffeine: Yes (5-6 cups/day) How often does anyone, including family, friends and others, physically hurt you: never How often does anyone, including family, friends and others, insult or talk down to you: never How often does anyone, including family, friends and others, threaten you with harm: never How often does anyone, including family, friends and others, scream or curse at you: never service: No Health Related Social Needs: Inadequate housing (Z59.1) Meds Home Medications and Allergies Home Medications ?Medication ?Instructions ?Recorded ?Confirmed ?Type alendronate 70 mg tablet 70 mg PO QWEEK #12 tabs 09/10/24 02/18/25 Rx food supplemt, lactose-reduced ea PO DAILY 09/10/24 02/18/25 History 0.04 gram-1.05 kcal/mL oral liquid (Boost Breeze Nutritional) pantoprazole 40 mg tablet,delayed 40 mg PO QDAY #90 tabs 09/10/24 02/18/25 Rx release cholecalciferol (vitamin D3) 50 50 mcg PO QDAY #90 tabs 10/19/24 02/18/25 Rx mcg (2,000 unit) tablet cyanocobalamin (vitamin B-12) 1,000 mcg PO QDAY #90 tabs 10/19/24 02/18/25 Rx 1,000 mcg tablet (Vitamin B-12) calcium 500 mg (as 1 tab PO BID #60 tabs 11/06/24 02/18/25 Rx carbonate)-vitamin D3 5 mcg (200 unit) tablet (Oyster Shell Calcium-Vitamin D3) loperamide 2 mg capsule (Imodium 2 mg PO Q6H PRN loose stool #60 12/06/24 02/18/25 Rx A-D) caps sennosides 8.6 mg tablet (senna) 8.6 mg PO QDAY PRN constipation 01/03/25 02/18/25 Rx #90 tabs acetaminophen 500 mg tablet 500 - 1,000 mg (1 - 2 x 500 mg) PO 02/07/25 02/18/25 Rx TID pain #120 tabs Allergies Allergy/AdvReac Type Severity Reaction Status Date / Time No Known Drug Allergies Allergy Verified 02/18/25 11:19 Exam Narrative: Exam Narrative: PHYSICAL EXAM General: Pleasant, conversant, NAD HEENT: Normocephalic, atraumatic, sclera white, EOMI, oral mucosa moist Cardiovascular: RRR, mildly tachycardic. No pitting edema Pulmonary: CTA bilaterally without rhonchi, rales, expiratory wheezes. No dyspnea Abdominal: Soft, nondistended, NTTP Neurological: Alert, answering questions appropriately, cranial nerves intact, no focal findings Extremities: LLE shortened, externally rotated, prefers to lie on right side. Neurovascularly intact Skin: Warm, dry. Const: Vital Signs, click to edit/add: Vital Signs - 24 hr 03/05/25 20:51 03/05/25 21:12 03/05/25 21:15 Temperature 98.1 F Pulse Rate 95 96 Pulse Rate [Pulse Oximeter] 92 Respiratory Rate 18 Blood Pressure Blood Pressure [Ri ght Upper Arm] 185/103 H Pulse Oximetry 97 95 96 Oxygen Delivery Me thod Room Air 03/05/25 21:30 03/05/25 21:45 03/05/25 22:00 Temperature Pulse Rate 100 105 H 105 H Pulse Rate [Pulse Oximeter] Respiratory Rate Blood Pressure Blood Pressure [Ri ght Upper Arm] Pulse Oximetry 97 96 97 Oxygen Delivery Me thod 03/05/25 22:11 03/05/25 22:15 03/05/25 22:17 Temperature Pulse Rate 106 H 104 H Pulse Rate [Pulse Oximeter] Respiratory Rate Blood Pressure 185/88 H Blood Pressure [Ri ght Upper Arm] Pulse Oximetry 97 97 97 Oxygen Delivery Me thod 03/05/25 22:22 03/05/25 22:30 03/05/25 22:42 Temperature Pulse Rate 105 H 107 H 102 H Pulse Rate [Pulse Oximeter] Respiratory Rate 16 Blood Pressure 185/73 H 160/73 H Blood Pressure [Ri ght Upper Arm] Pulse Oximetry 96 96 96 Oxygen Delivery Me thod 03/05/25 22:45 03/05/25 22:59 03/05/25 23:00 Temperature Pulse Rate 102 H 104 H Pulse Rate [Pulse Oximeter] 103 H Respiratory Rate 16 Blood Pressure Blood Pressure [Ri ght Upper Arm] 160/73 H Pulse Oximetry 95 98 95 Oxygen Delivery Me thod Room Air 03/05/25 23:01 03/05/25 23:15 03/05/25 23:21 Temperature Pulse Rate 104 H 102 H 105 H Pulse Rate [Pulse Oximeter] Respiratory Rate 16 Blood Pressure 155/73 H 156/77 H Blood Pressure [Ri ght Upper Arm] Pulse Oximetry 96 95 97 Oxygen Delivery Me thod Hospitalist - H&P: Result Labs Labs: Short CBC 11/04/25 Range/Units 22:15 WBC 12.14 H (4.50-11.00) K/uL Hgb 11.4 L (12.0-16.0) gm/dL Hct 35.9 (33.0-51.0) % Plt Count 214 (140-440) K/uL BMP 03/05/25 22:15 Sodium 136 Potassium 4.1 Chloride 103 Carbon Dioxide 26 BUN 24 Creatinine 0.8 Glucose 122 H Calcium 9.0 Liver Function 03/05/25 Range/Units 22:15 Total Bilirubin 0.4 (0.1-1.5) mg/dL AST 21 (12-35) U/L ALT 14 (4-35) U/L Alkaline Phosphatase 81 (40-150) U/L Albumin 3.9 (3.3-5.0) g/dL ECG Attestation: I personally reviewed and interpreted this ECG as follows: Interpretation: Sinus tachycardia, rate 106 Imaging Hip x-ray: Attestation: I have reviewed the pertinent imaging results. Radiologist's impression: Exam limited by patient body habitus. Again seen is a comminuted displaced fracture of the left femur intertrochanteric region. The femoral head appears aligned with the acetabulum. Soft tissues are unremarkable. IMPRESSION: Comminuted displaced left femur intertrochanteric fracture again seen. Chest x-ray: Attestation: I have reviewed the pertinent imaging results. Radiologist's impression: Cardiovascular: Heart size and pulmonary vasculature are within normal limits. Tortuous aorta. Lungs and pleural spaces: Biapical pleural capping and scattered parenchymal scarring similar to prior exam. No focal consolidation, pleural effusion, or pneumothorax. Bones and soft tissues: Elevation of the right hemidiaphragm. Surgical clips right upper quadrant. IMPRESSION: No acute cardiopulmonary findings.
[2025-03-06] MEDS: ACETAMINOPHEN 325 MG TABLET 1000 MG PO (01:05)
--- NOTE | 2025-03-06 05:32 | PC.NURSE ---
Pt has now removed two IV's in the past 5 hours. Nelson AKBAR called Dr. Whitaker- It is okay to leave IV out until surgery and hold IVF.
--- NOTE | 2025-03-06 07:45 | PC.NURSE ---
End of shift note [id number]: Pt noted to be A&Ox 3 though has intermittent confusion noted including pulling two IVs out independently- catheters intact. Nelson AKBAR was updated and plan is to start new IV just prior to surgery being pt keeps pulling them out after placement. Pt on bedrest, repositioned as tolerated and has been NPO since midnight in prep for surgery today. External catheter in place though pt was also incontinent of urine. Pain controlled with Tylenol, rest and repositioning. CMS to LLE intact. Bed alarm on and call light within reach.
--- NOTE | 2025-03-06 09:57 | PM.ORCN ---
History of Present Illness HPI Date Seen: 03/06/25 Requesting physician: Alda Rios Chief complaint: Fall/Left hip pain Narrative: Samreen is an 79-year-old female with past medical history significant for cognitive impairment, mitral regurgitation, osteoporosis, vitamin B12 deficiency, and cerebrovascular disease. She was transferred to the [facility] Emergency Department from [facility] by EMS for evaluation of left hip pain and inability to ambulate. Patient reports falling to the ground while trying to get from her bed to a chair. After following she developed left hip pain and was unable to ambulate. Prior to this injury, she used a walker for assistance with ambulation. Today, she continues to experience left hip pain which is currently adequately controlled with pain medications. She denies any other injuries. [facility] Medical History Mitral regurgitation ?I34.0 - Nonrheumatic mitral (valve) insufficiency (ICD-10) Surgical History History of arthroplasty of right knee (02/23/24) ?Z96.651 - Presence of right artificial knee joint (ICD-10) History of blepharoplasty ?Z98.890 - Other specified postprocedural states (ICD-10) History of cataract surgery ?Z98.49 - Cataract extraction status, unspecified eye (ICD-10) History of laparoscopic cholecystectomy ?Z90.49 - Acquired absence of other specified parts of digestive tract (ICD-10) History of vaginal hysterectomy ?Z90.710 - Acquired absence of both cervix and uterus (ICD-10) Social History What is your current living situation?: I presently have a place to live Problems where you live: unable to answer Problems where you live details: N/A In the past 12 months, utilities in danger of being shut off: unable to answer In past 12 months, lack of transportation kept you from medical appts, meetings, work, or getting things needed for daily living: unable to answer In the past 12 mos, have been you worried that your food would run out before you had money to buy more?: unable to answer In the past 12 mos, the food you bought just didn't last and you didn't have money to buy more?: unable to answer Highest level of school completed/degree received: Bachelor's degree Smoking Status: Former smoker What tobacco products do you use: cigarettes Years smoked: 10 Smoking quit date/years: >15 years ago Do you use any of these nicotine containing products: None Second hand tobacco smoke exposure: No How often do you have a drink containing alcohol: never How often do you have six or more drinks on one occasion: Never AUDIT-C Alcohol total score: 0 Non-prescribed substance use: denies use Caffeine: Yes How often does anyone, including family, friends and others, physically hurt you: unable to answer How often does anyone, including family, friends and others, insult or talk down to you: unable to answer How often does anyone, including family, friends and others, threaten you with harm: unable to answer How often does anyone, including family, friends and others, scream or curse at you: unable to answer service: Yes Meds Home Medications and Allergies Home Medications ?Medication ?Instructions ?Recorded ?Confirmed ?Type alendronate 70 mg tablet 70 mg PO QWEEK #12 tabs 09/10/24 03/06/25 Rx pantoprazole 40 mg tablet,delayed 40 mg PO QDAY #90 tabs 09/10/24 03/06/25 Rx release cholecalciferol (vitamin D3) 50 50 mcg PO QDAY #90 tabs 10/19/24 03/06/25 Rx mcg (2,000 unit) tablet cyanocobalamin (vitamin B-12) 1,000 mcg PO QDAY #90 tabs 10/19/24 03/06/25 Rx 1,000 mcg tablet (Vitamin B-12) calcium 500 mg (as 1 tab PO BID #60 tabs 11/06/24 03/06/25 Rx carbonate)-vitamin D3 5 mcg (200 unit) tablet (Oyster Shell Calcium-Vitamin D3) loperamide 2 mg capsule (Imodium 2 mg PO Q6H PRN loose stool #60 12/06/24 03/06/25 Rx A-D) caps sennosides 8.6 mg tablet (senna) 8.6 mg PO QDAY PRN constipation 01/03/25 03/06/25 Rx #90 tabs acetaminophen 500 mg tablet 1,000 mg PO TID pain 03/06/25 03/06/25 History Allergies Allergy/AdvReac Type Severity Reaction Status Date / Time No Known Drug Allergies Allergy Verified 02/18/25 11:19 Ortho Exam Narrative Exam Narrative: General: Patient is alert and oriented to name only. Musculoskeletal: Left lower extremity was examined. Hip range of motion limited by pain. EHL, tibialis anterior, gastrocnemius/soleus were intact. Sensation was intact to light touch dorsal plantar aspects of the foot. Foot was warm well perfused with intact DP pulse. Const Vital Signs, click to edit/add: Vital Signs - 24 hr 03/05/25 20:51 03/05/25 21:12 03/05/25 21:15 Temperature 98.1 F Pulse Rate 95 96 Pulse Rate [Left Pulse Oximeter] Pulse Rate [Pulse Oximeter] 92 Respiratory Rate 18 Blood Pressure Blood Pressure [Left Arm] Blood Pressure [Right Upper Arm] 185/103 H Pulse Oximetry 97 95 96 Oxygen Delivery Method Room Air 03/05/25 21:30 03/05/25 21:45 03/05/25 22:00 Temperature Pulse Rate 100 105 H 105 H Pulse Rate [Left Pulse Oximeter] Pulse Rate [Pulse Oximeter] Respiratory Rate Blood Pressure Blood Pressure [Left Arm] Blood Pressure [Right Upper Arm] Pulse Oximetry 97 96 97 Oxygen Delivery Method 03/05/25 22:11 03/05/25 22:15 03/05/25 22:17 Temperature Pulse Rate 106 H 104 H Pulse Rate [Left Pulse Oximeter] Pulse Rate [Pulse Oximeter] Respiratory Rate Blood Pressure 185/88 H Blood Pressure [Left Arm] Blood Pressure [Right Upper Arm] Pulse Oximetry 97 97 97 Oxygen Delivery Method 03/05/25 22:22 03/05/25 22:30 03/05/25 22:42 Temperature Pulse Rate 105 H 107 H 102 H Pulse Rate [Left Pulse Oximeter] Pulse Rate [Pulse Oximeter] Respiratory Rate 16 Blood Pressure 185/73 H 160/73 H Blood Pressure [Left Arm] Blood Pressure [Right Upper Arm] Pulse Oximetry 96 96 96 Oxygen Delivery Method 03/05/25 22:45 03/05/25 22:59 03/05/25 23:00 Temperature Pulse Rate 102 H 104 H Pulse Rate [Left Pulse Oximeter] Pulse Rate [Pulse Oximeter] 103 H Respiratory Rate 16 Blood Pressure Blood Pressure [Left Arm] Blood Pressure [Right Upper Arm] 160/73 H Pulse Oximetry 95 98 95 Oxygen Delivery Method Room Air 03/05/25 23:01 03/05/25 23:15 03/05/25 23:21 Temperature Pulse Rate 104 H 102 H 105 H Pulse Rate [Left Pulse Oximeter] Pulse Rate [Pulse Oximeter] Respiratory Rate 16 Blood Pressure 155/73 H 156/77 H Blood Pressure [Left Arm] Blood Pressure [Right Upper Arm] Pulse Oximetry 96 95 97 Oxygen Delivery Method 03/05/25 23:55 03/05/25 23:55 03/06/25 00:07 Temperature 97.9 F 97.9 F Pulse Rate Pulse Rate [Left Pulse Oximeter] 110 H 110 H Pulse Rate [Pulse Oximeter] Respiratory Rate 18 20 18 Blood Pressure Blood Pressure [Left Arm] 183/87 H 183/87 H Blood Pressure [Right Upper Arm] Pulse Oximetry 96 96 96 Oxygen Delivery Method Room Air Room Air Room Air 03/06/25 04:04 03/06/25 08:20 03/06/25 08:20 Temperature 98.2 F 98.2 F Pulse Rate Pulse Rate [Left Pulse Oximeter] 88 88 90 Pulse Rate [Pulse Oximeter] Respiratory Rate 18 18 18 Blood Pressure Blood Pressure [Left Arm] 123/77 123/77 Blood Pressure [Right Upper Arm] Pulse Oximetry 96 96 Oxygen Delivery Method Room Air Room Air 03/06/25 08:34 Temperature 98.0 F Pulse Rate Pulse Rate [Left Pulse Oximeter] 90 Pulse Rate [Pulse Oximeter] Respiratory Rate 18 Blood Pressure Blood Pressure [Left Arm] 137/82 Blood Pressure [Right Upper Arm] Pulse Oximetry 96 Oxygen Delivery Method Room Air Results Labs Labs: Laboratory Results - last 48 hr 03/05/25 22:15 WBC 12.14 H RBC 3.46 L Hgb 11.4 L Hct 35.9 MCV 104 H MCH 33 MCHC 32 RDW Coeff of Ludy 13.6 Plt Count 214 Neut % (Auto) 81.7 H Lymph % (Auto) 10.8 L [place] % (Auto) 5.5 Eos % (Auto) 1.0 Baso % (Auto) 0.7 Neut # (Auto) 9.90 H Lymph # (Auto) 1.30 [place] # (Auto) 0.70 Eos # (Auto) 0.10 Baso # (Auto) 0.10 Abs Immat Gran (auto) 0.00 Imm/Tot Granulo (auto) 0.3 INR 0.99 Sodium 136 Potassium 4.1 Chloride 103 Carbon Dioxide 26 Anion Gap 7 BUN 24 Creatinine 0.8 Estimated Creat Clear 43.63 Estimated GFR 74 Glucose 122 H Calcium 9.0 Total Bilirubin 0.4 AST 21 ALT 14 Alkaline Phosphatase 81 Total Protein 7.1 Albumin 3.9 Diagnostic results Additional Comments: AP pelvis, AP left hip and lateral left hip x-rays performed 03/05/2025 were reviewed. These demonstrated a displaced, shortened left intertrochanteric hip fracture. Mild to moderate degenerative changes of left hip joint. Chronic fractures of the right superior inferior rami. Assessment and Plan Assessment and plan (1) Closed fracture of left hip: Problem comment: -plain film shows comminuted displaced left femur intertrochanteric fracture -ED provider discussed with Orthopedic Surgery, plan for OR 03/06 -pain management, repositioning, bedrest -NPO, IVF -SCDs for VTE PPX Status: Acute Total time spent: Total time spent is greater than 50% in coordination of care (as documented) at patient's floor/unit and/or counseling patient: (2) Mild cognitive impairment: Problem comment: -[facility] with [facility] early 2023 -monitor for perioperative delirium Status: Acute Total time spent: Total time spent is greater than 50% in coordination of care (as documented) at patient's floor/unit and/or counseling patient: Plan Patient has a displaced intertrochanteric left hip fracture. Risks and benefits of operative treatment and alternatives to surgery were discussed with the patient and her daughter. Recommendation was subsequently made for surgical intervention consisting of left hip closed reduction internal fixation with a cephalomedullary hip screw to allow for early mobilization and advancement of weight-bearing, decreased pain, and healing of the fracture. Risks of surgery to include, but not limited to, infection, neurovascular injury, malunion, nonunion, hip avascular necrosis, deep vein thrombosis, pulmonary embolism, heart attack, stroke, and even were discussed with the patient and her daughter. All of their questions were answered. After discussion, they were in agreement with plan to proceed with surgery and informed consent was obtained. Patient has been admitted to the hospitalist for perioperative medical management. She has been medically optimized and cleared for the planned surgical procedure . She is to remain on bedrest with plan for surgery later today. She has been NPO since midnight for anticipated surgery.
--- NOTE | 2025-03-06 10:06 | P.ORPRC_ITS ---
Procedure Note Date of procedure: 03/06/25 Procedure: PREOPERATIVE DIAGNOSIS: 1. Left intertrochanteric/subtrochanteric femur fracture, closed, displaced POSTOPERATIVE DIAGNOSES: 1. Left intertrochanteric/subtrochanteric femur fracture, closed, displaced PROCEDURE: 1. Left intertrochanteric/subtrochanteric femur fracture fixation with intramedullary nail 2. 87629 - Intraoperative fluoroscopy up to 1 hour SURGEON: Sylvester Yañez MD [employer] REPRESENTATIVE: Osvaldo Zhang P.A.-C.. An physician assistant primary care was critical for this case to aid in patient positioning, leg manipulation, tissue retraction, instrument positioning, and wound closure. ANESTHESIA: Spinal with regional nerve block IMPLANTS: Synthes long TFNA nail: 11 mm X 400 mm x 130 degrees; 95 mm lag screw; 5.0 mm x 48 mm distal interlocking screws x2 EBL: 50 ml COMPLICATIONS: None evident INDICATIONS: Samreen is a 79-year-old female who sustained ground level fall yesterday. She subsequently developed left hip pain and was unable to bear weight. After presenting to the [facility], she was diagnosed with displaced intertrochanteric femur fracture. Surgical stabilization of this fracture is recommended to allow for early mobilization and advancement of weight-bearing, decreased pain, and healing of the fracture. Prior to procedure, risks and benefits of the operative and non operative treatment were discussed with the patient and her daughter. After discussion of risks, benefits, and alternatives of surgery, informed consent was obtained and the operative hip was marked. FINDINGS: Displaced left intertrochanteric femur fracture with subtrochanteric extension PROCEDURE: After obtaining proper medical evaluation determining the patient was medically optimized for surgery, she was brought to the operating room and placed supine on the operating table. Induction of spinal anesthesia undertaken. IV TXA and 2 g IV Ancef was administered preoperatively. The patient was then positioned on the [place] table, and all bony prominences were well padded. Fluoroscopic imaging was utilized to obtain AP and lateral views of the hip. These images revealed displaced intertrochanteric fracture with also subtrochanteric extension into the lateral cortex. Traction was applied to the operative extremity to obtain anatomic reduction of both fractures. After fractures were reduced, the operative extremity was then prepped and draped in usual sterile fashion using ChloraPrep. A surgical time-out was performed confirming patient identity, surgical site, and surgical procedure. A longitudinal incision was made proximal to the greater trochanter on the lateral aspect of the hip in line with the femur. Incision was carried through subcutaneous tissues. Electrocautery was used to achieve hemostasis. The gluteal fascia was split in line with the incision and blunt dissection was used to dissect down to the tip of the greater trochanter. The tip of the greater trochanter was palpated and the guide pin was then placed into the medial tip of the greater trochanter and advanced into the proximal femur. Correct position of the guide pin was confirmed on C-arm and both in AP and lateral planes. This was then overdrilled with the starting Reamer. The guide pin was then removed , and a ball-tip guidewire was placed the length of the femur. Once the guide pin was seated in the distal femur, length of guide pin was measured and decision was to proceed with a 400 mm nail. The canal was then reamed sequentially over the guidewire to 12.5 mm, at which point good cortical contact was obtained. Once the canal was reamed, the nail was passed without difficulty. Correct po sition at the hip and distal femur was confirmed with fluoroscopic imaging. The triple trocar was then applied to the lateral femur after making an incision through the skin and ID band. The guide pin was then placed and confirmed to be in the center center position in the femoral head both on AP and lateral views. Guide pin was overdrilled the appropriate drill, and a 95 mm lag screw was selected and secured into position. The proximal nail locking screw was tightened down, and backed off full turn allowing for dynamic compression at the fracture site. We then turned our attention to the distal interlocking screws. Small stab incisions were made over the intended screw holes on the lateral aspect of the distal femur. Using the perfect ak chin technique, distal interlock screw holes were drilled and filled with the appropriate length 5.0 mm distal interlock screws. One screw was placed in the dynamic hole and one screw in a static hole. The most proximal screw that was initially placed was too short and was exchanged for more appropriate length screw. Fluoroscopic C-arm images were obtained to confirm position correct position of the screw within the nail. At this stage, the wounds were thoroughly irrigated normal saline, closure performed with 0 Vicryl for the deep gluteal fascia, and IT band. 2-0 Vicryl, 2-0 Stratafix, and 3-0 Monocryl was utilized for subcutaneous and subcuticular closure. The patient was awoken from anesthesia and transferred to the PACU in stable condition. POSTOPERATIVE PLAN: 1. Patient will be readmitted to the hospitalist service for perioperative medical management. 2. Mobilize with physical therapy and occupational therapy. - Weight bear as tolerated left lower extremity. 3. Pain control: - Acetaminophen and Oxycodone for pain as needed. -IV pain medications for breakthrough pain -Ice for pain and swelling 4. Postoperative prophylactic antibiotics x2 doses 5. DVT prophylaxis: - aspirin 81 mg b.i.d. for 35 days - SCDs bilateral lower extremities 6. Follow-up in Orthopedic Clinic in 1-2 weeks for wound check. Follow up in Dr. Yañez and the Orthopedic Clinic 6 weeks postoperatively.
--- NOTE | 2025-03-06 10:17 | P.IMPN_ITS ---
Assessment and Plan Assessment and plan (1) Closed fracture of left hip: Problem comment: -plain film shows comminuted displaced left femur intertrochanteric fracture -ED provider discussed with Orthopedic Surgery, plan for OR 03/06 -pain management, repositioning, bedrest -NPO, IVF -SCDs for VTE PPX -03/06: OR today after 1 pm. Status: Acute (2) Cerebrovascular disease: Problem comment: -Diagnosed with acute/subacute infarcts and moderate chronic ischemic disease on MRI brain done 07/23 for mild cognitive impairment, aspirin started 08/23 but it looks like patient is not taking aspirin right now. -Patient is able to walk without a walker at her baseline and it seems there is no residual weakness. On my examination, No facial focal weakness or UE weakness, unable to compare lower extremities due to fracture. Status: Acute (3) Mild cognitive impairment: Problem comment: -[facility] with OT early 2023 -monitor for perioperative delirium Status: Acute (4) Fall: Problem comment: -Patient denies losing consciousness prior during or after the fall. -patient denies headache, lightheadedness, visual changes. Status: Acute Total Time Spent Total Time Spent: Today I spent 45 minutes seeing the patient, reviewing Expanse and EPIC notes/diagnostics, discussing the care plan with our care time that includes social work, PT/OT, pharmacy, RT, care home and documenting my impressions and plan in the medical record. Subjective Date Seen: 03/06/25 Interval history: Patient was seen and examined at bedside today. She states that her pain is controlled. Patient denies headache, visual changes, lightheadedness, chest discomfort. I asked her about history of CVA, whether patient is having any residual weakness for. Patient is able to walk without a walker at her baseline and it seems there is no residual weakness. On my examination, No facial focal weakness or UE weakness, unable to compare lower extremities due to fracture. Exam Narrative: Exam Narrative: Physical exam GENERAL: Comfortable, no acute distress. HEAD AND NECK: Atraumatic, normocephalic CARDIOVASCULAR: RRR. Normal S1, S2. No murmurs. RESPIRATORY: Clear to auscultation B/L. Good air entry B/L. No wheezes or rhonchi. GASTROINTESTINAL: Not distended, not tender to palpation. NEUROLOGY: Alert, awake. Normal speech. No facial focal weakness or UE weakness, unable to compare lower extremities due to fracture PSYCH: Normal mood, normal affect. Const: Vital Signs, click to edit/add: Vital Signs - 24 hr 03/05/25 20:51 03/05/25 21:12 03/05/25 21:15 Temperature 98.1 F Pulse Rate 95 96 Pulse Rate [Left P ulse Oximeter] Pulse Rate [Pulse Oximeter] 92 Respiratory Rate 18 Blood Pressure Blood Pressure [Le ft Arm] Blood Pressure [Ri ght Upper Arm] 185/103 H Pulse Oximetry 97 95 96 Oxygen Delivery Me thod Room Air 03/05/25 21:30 03/05/25 21:45 03/05/25 22:00 Temperature Pulse Rate 100 105 H 105 H Pulse Rate [Left P ulse Oximeter] Pulse Rate [Pulse Oximeter] Respiratory Rate Blood Pressure Blood Pressure [Le ft Arm] Blood Pressure [Ri ght Upper Arm] Pulse Oximetry 97 96 97 Oxygen Delivery Me thod 03/05/25 22:11 03/05/25 22:15 03/05/25 22:17 Temperature Pulse Rate 106 H 104 H Pulse Rate [Left P ulse Oximeter] Pulse Rate [Pulse Oximeter] Respiratory Rate Blood Pressure 185/88 H Blood Pressure [Le ft Arm] Blood Pressure [Ri ght Upper Arm] Pulse Oximetry 97 97 97 Oxygen Delivery Me thod 03/05/25 22:22 03/05/25 22:30 03/05/25 22:42 Temperature Pulse Rate 105 H 107 H 102 H Pulse Rate [Left P ulse Oximeter] Pulse Rate [Pulse Oximeter] Respiratory Rate 16 Blood Pressure 185/73 H 160/73 H Blood Pressure [Le ft Arm] Blood Pressure [Ri ght Upper Arm] Pulse Oximetry 96 96 96 Oxygen Delivery Me thod 03/05/25 22:45 03/05/25 22:59 03/05/25 23:00 Temperature Pulse Rate 102 H 104 H Pulse Rate [Left P ulse Oximeter] Pulse Rate [Pulse Oximeter] 103 H Respiratory Rate 16 Blood Pressure Blood Pressure [Le ft Arm] Blood Pressure [Ri ght Upper Arm] 160/73 H Pulse Oximetry 95 98 95 Oxygen Delivery Me thod Room Air 03/05/25 23:01 03/05/25 23:15 03/05/25 23:21 Temperature Pulse Rate 104 H 102 H 105 H Pulse Rate [Left P ulse Oximeter] Pulse Rate [Pulse Oximeter] Respiratory Rate 16 Blood Pressure 155/73 H 156/77 H Blood Pressure [Le ft Arm] Blood Pressure [Ri ght Upper Arm] Pulse Oximetry 96 95 97 Oxygen Delivery Me thod 03/05/25 23:55 03/05/25 23:55 03/06/25 00:07 Temperature 97.9 F 97.9 F Pulse Rate Pulse Rate [Left P ulse Oximeter] 110 H 110 H Pulse Rate [Pulse Oximeter] Respiratory Rate 18 20 18 Blood Pressure Blood Pressure [Le ft Arm] 183/87 H 183/87 H Blood Pressure [Ri ght Upper Arm] Pulse Oximetry 96 96 96 Oxygen Delivery Me thod Room Air Room Air Room Air 03/06/25 04:04 03/06/25 08:20 03/06/25 08:20 Temperature 98.2 F 98.2 F Pulse Rate Pulse Rate [Left P ulse Oximeter] 88 88 90 Pulse Rate [Pulse Oximeter] Respiratory Rate 18 18 18 Blood Pressure Blood Pressure [Le ft Arm] 123/77 123/77 Blood Pressure [Ri ght Upper Arm] Pulse Oximetry 96 96 Oxygen Delivery Me thod Room Air Room Air 03/06/25 08:34 Temperature 98.0 F Pulse Rate Pulse Rate [Left P ulse Oximeter] 90 Pulse Rate [Pulse Oximeter] Respiratory Rate 18 Blood Pressure Blood Pressure [Le ft Arm] 137/82 Blood Pressure [Ri ght Upper Arm] Pulse Oximetry 96 Oxygen Delivery Me thod Room Air Labs Labs: Laboratory Results - last 24 hr 03/05/25 22:15 WBC 12.14 H RBC 3.46 L Hgb 11.4 L Hct 35.9 MCV 104 H MCH 33 MCHC 32 RDW Coeff of Ludy 13.6 Plt Count 214 Neut % (Auto) 81.7 H Lymph % (Auto) 10.8 L [place] % (Auto) 5.5 Eos % (Auto) 1.0 Baso % (Auto) 0.7 Neut # (Auto) 9.90 H Lymph # (Auto) 1.30 [place] # (Auto) 0.70 Eos # (Auto) 0.10 Baso # (Auto) 0.10 Abs Immat Gran (auto) 0.00 Imm/Tot Granulo (auto) 0.3 INR 0.99 Sodium 136 Potassium 4.1 Chloride 103 Carbon Dioxide 26 Anion Gap 7 BUN 24 Creatinine 0.8 Estimated Creat Clear 43.63 Estimated GFR 74 Glucose 122 H Calcium 9.0 Total Bilirubin 0.4 AST 21 ALT 14 Alkaline Phosphatase 81 Total Protein 7.1 Albumin 3.9
[2025-03-06] MEDS: BUPIVACAINE 0.5 %/EPI 1:200K 30 ML INJECTION (10:55)
--- NOTE | 2025-03-06 12:00 | CRLHL7_ITS ---
For Patients: As a result of the Cures Act, medical imaging exams and procedure reports are released immediately into your electronic medical record. You may view this report before your referring provider. If you have questions, please contact your health care provider. Indication: Left femur IM laurel Technique: Six fluoroscopic images of the left femur. Fluoroscopic time 151.0 seconds. IMPRESSION: Fluoroscopic guidance for open reduction internal fixation of proximal left femoral fracture. Dictated by Trenton Doran MD @ 03/07/2025 8:09:19 AM (Electronically Signed)
[2025-03-06] MEDS: TRANEXAMIC ACID 100 MG/ML INJ 1000 MG IV (13:30)
--- NOTE | 2025-03-06 14:32 | P.NB_ITS ---
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 Images saved: Yes Medications given in 5ml increments after negative aspiration: Ropivicaine %: 0.5 mL: 30 Precedex (mcg): 25 Patient tolerated procedure well: Yes Block Charges Block Charge (with Pro Fee): Other Periph Nerve Block Use of Ultrasound Machine for Block: Yes- US Guidance/pain block
--- NOTE | 2025-03-06 14:58 | PC.NURSE ---
End of shift. pt has been pleasant. she is alert 1 she is very confused. Pt on bedrest, repositioned as tolerated. she was turned and repositioned. she is NPO. she went to surgery @ 1215. pt was also incontinent of urine. Pain controlled with Tylenol, CMS to LLE intact. Bed alarm on and call light within reach. new IV was started before surgery
[2025-03-06] MEDS: LACTATED RINGERS 1000 ML 1,000 ML 100 ML IV (15:00)
--- NOTE | 2025-03-06 15:34 | P.ANES_ITS ---
Anesthesia Charges Start Date/Time Anesthesia Start Date: 03/06/25 Anesthesia Start Time: 12:45 Stop Date/Time Anesthesia Stop Date: 03/06/25 Anesthesia Stop Time: 15:35 Coding CPT Codes CPT Codes: ANESTH HIP JOINT SURGERY - 04457 ([id number]) P3 - PATIENT W/SEVERE SYS DISEASE, QK - HEADSTART TEACHER 2-4 CNCRNT ANES PROC, QX - WAN SUPPORT SPECIALIST SVC W/ MD MED DIRECTION
--- NOTE | 2025-03-06 15:34 | W.ANESCHARGE ---
Anesthesia Charges Start Date/Time Anesthesia Start Date: 03/06/25 Anesthesia Start Time: 12:45 Stop Date/Time Anesthesia Stop Date: 03/06/25 Anesthesia Stop Time: 15:35 Coding CPT Codes CPT Codes: ANESTH HIP JOINT SURGERY - 55556 ([id number]) P3 - PATIENT W/SEVERE SYS DISEASE, QK - ASSISTANT WINEMAKER 2-4 CNCRNT ANES PROC, QX - INHALATION THERAPY AIDE SVC W/ MD MED DIRECTION
--- NOTE | 2025-03-06 15:46 | W.ANESCHARGE ---
Anesthesia Charges Start Date/Time Anesthesia Start Date: 03/06/25 Anesthesia Start Time: 12:45 Stop Date/Time Anesthesia Stop Date: 03/06/25 Anesthesia Stop Time: 15:35 Summary Extremes of Age - Over 70 or under 1: MDA Coding CPT Codes CPT Codes: ANESTH HIP JOINT SURGERY - 86662 ([id number]) QK - SEED CORN MANAGER PRODUCTION 2-4 CNCRNT ANES PROC, QX - GLASS BLOWER SVC W/ MD MED DIRECTION, P3 - PATIENT W/SEVERE SYS DISEASE Additional Codes: Summary - Extremes of Age - Over 70 or under 1: MDA ([id number])
[2025-03-06] MEDS: CEFAZOLIN 2 GM in 0.9 % SODIUM CHLORIDE Mini-bag 100 ML IVPB (20:13)
[2025-03-06] MEDS: ASPIRIN 81 MG TABLET EC PO (20:14)
[2025-03-06] MEDS: ACETAMINOPHEN 500 MG TABLET 1000 MG PO (20:14)
--- NOTE | 2025-03-06 23:46 | PC.NURSE ---
End of Shift Note 247 Patient was pleasant and cooperative throughout shift. Patient has reported no pain since arrival, or shown any signs of discomfort. Two attempts to have the patient sit on recliner were unsuccessful. VSS. Afebrile. A&Ox2. Patient has been changed and repositioned every 2 hours. Patient is incontinent but voiding well since coming back from surgery. Patient not very talkative but seems to be able to understand and respond to questions well. Call light within reach.
[2025-03-07] MEDS: ACETAMINOPHEN 500 MG TABLET 1000 MG PO ×4 (02:06→20:20)
[2025-03-07 03:51] VITALS: BP 126/49; PULSE 88; RESP 18; TEMP 36.8; O2SAT 93
[2025-03-07] MEDS: CEFAZOLIN 2 GM in 0.9 % SODIUM CHLORIDE Mini-bag 100 ML IVPB ×2 (04:09→11:34)
[2025-03-07 07:01] LABS: Hematocrit* 23.7 % (33.0-51.0); Mean Corpuscular HGB Conc 32 gm/dL (32-36); Mean Corpuscular Hemoglobin 33 pg (26-34); Mean Corpuscular Volume 104 fL (80-100); Red Blood Count* 2.27 m/uL (4.00-5.20); White Blood Count* 6.57 K/uL (4.50-11.00)
[2025-03-07 07:10] LABS: Chloride* 102 mmol/L (96-114)
[2025-03-07 07:11] LABS: Potassium* 4.0 mmol/L (3.6-5.1); Sodium* 134 mmol/L (135-149)
[2025-03-07 07:13] LABS: Blood Urea Nitrogen* 17 mg/dL (7-30); Creatinine* 0.7 mg/dL (0.5-1.5); Est. Creatinine Clearance* 43.63; Estimated Glomerular Filt Rate 87 ml/min
[2025-03-07 07:14] LABS: Anion Gap 4 mEq/L (7-15); Calcium* 8.1 mg/dL (8.4-10.6); Carbon Dioxide* 28 mmol/L (20-32); Glucose* 114 mg/dL (60-115)
[2025-03-07 07:24] LABS: Hemoglobin* 7.5 gm/dL (12.0-16.0); Slide Review Reflex No
--- NOTE | 2025-03-07 07:37 | PC.NURSE ---
End of shift: Pt alert, oriented to self and vitally stable. Pt incontinent and experienced pain with rolling, pure wick put into place and pt stated improvement. Pt denies pain, unless moving, unable to rate. Scheduled tylenol tolerated. 3 dressings c/d/i.Bed alarm on. Pt in bed, appears to be resting, call light within reach.
[2025-03-07 08:08] VITALS: BP 120/66; PULSE 89; RESP 16; TEMP 37.2; O2SAT 93
--- NOTE | 2025-03-07 09:40 | P.ORPN_ITS ---
Subjective Subjective Time Seen by Provider: 08:50 Date Seen: 03/07/25 Principal diagnosis: Day 1 s/p left femur fracture fixation with IMN. (03/06/25, Dr. Yañez) Interval history: Samreen is resting in comfortably in her recliner this morning and eating breakfast. Patient's daughter (Jose) and RITA (Sylvester) are present. Samreen c/o exquisite left hip pain with motion, but minimal at rest. Per nursing staff, Samreen has been unable to ambulate or weightbear on her left lower extremity. She has been requiring a ceiling lift. Samreen has some cognitive impairment and she explains to me that in part she is anxious and hesitant to put weight on her left leg. I was also notified by nursing staff that Samreen has been removing her IV. She has one dose of IV antibiotics remaining. I would recommend she receive this this morning. Patient denies postop chest pain, SOB, fever, chills, nause and vomiting. Denies postop bowel movement and denies flatulence. Prior to this fall, Samreen resided at [facility]. Ortho Exam Narrative Exam Narrative: Incision/Dressing: Dressings appear clean and dry. No drainage present. Mepilex intact x2. Left hip appears moderately swollen but supple with no obvious erythema, fluctuance or excessive warmth. No ecchymosis or erythematous streaking. Warmth around the wound is appropriate. Ice is being utilized as needed. CMS: Intact distally with 2+ Dorsalis pedis and Posterior Tibial pulses. Confirmed sensation distally. Calf: Left calf is supple, with no swelling, pain, tenderness, erythema, discoloration or coolness to the touch. Constitutional: Patient is alert this morning. She is in no acute distress and converses without labored breathing. Patient is pleasant and cooperative. Affect is full range and appropriate for the circumstances. Const Vital Signs, click to edit/add: Vital Signs - 24 hr 03/06/25 10:35 03/06/25 12:00 03/06/25 15:00 Temperature 98.2 F 98.2 F Pulse Rate Pulse Rate [Left Dorsalis Pedis] Pulse Rate [Left Pulse Oximeter] 83 83 80 Respiratory Rate 18 18 Blood Pressure Blood Pressure [Left Arm] 145/66 H 145/66 H Blood Pressure [Right Arm] Pulse Oximetry 95 95 Oxygen Delivery Method Room Air Room Air 03/06/25 15:35 03/06/25 15:40 03/06/25 15:45 Temperature 96.6 F L Pulse Rate 75 82 79 Pulse Rate [Left Dorsalis Pedis] Pulse Rate [Left Pulse Oximeter] Respiratory Rate 16 16 16 Blood Pressure 116/58 L 120/56 L 128/63 Blood Pressure [Left Arm] Blood Pressure [Right Arm] Pulse Oximetry 95 95 95 Oxygen Delivery Method Room Air Room Air Room Air 03/06/25 15:50 03/06/25 15:55 03/06/25 16:00 Temperature Pulse Rate 82 80 80 Pulse Rate [Left Dorsalis Pedis] Pulse Rate [Left Pulse Oximeter] Respiratory Rate 16 16 16 Blood Pressure 129/71 133/62 128/64 Blood Pressure [Left Arm] Blood Pressure [Right Arm] Pulse Oximetry 95 95 95 Oxygen Delivery Method Room Air Room Air Room Air 03/06/25 16:05 03/06/25 16:15 03/06/25 16:30 Temperature 98.6 F 96.8 F L 96.8 F L Pulse Rate 82 Pulse Rate [Left Dorsalis Pedis] 81 Pulse Rate [Left Pulse Oximeter] 80 81 Respiratory Rate 16 16 16 Blood Pressure 137/62 Blood Pressure [Left Arm] 142/72 H 146/78 H Blood Pressure [Right Arm] Pulse Oximetry 94 96 94 Oxygen Delivery Method Room Air Room Air Room Air 03/06/25 16:45 03/06/25 17:00 03/06/25 17:15 Temperature Pulse Rate Pulse Rate [Left Dorsalis Pedis] Pulse Rate [Left Pulse Oximeter] 78 82 87 Respiratory Rate 16 16 Blood Pressure Blood Pressure [Left Arm] 130/67 137/71 121/65 Blood Pressure [Right Arm] Pulse Oximetry 95 96 Oxygen Delivery Method Room Air Room Air 03/06/25 18:15 03/06/25 18:45 03/06/25 19:45 Temperature 96.7 F L 96.7 F L Pulse Rate Pulse Rate [Left Dorsalis Pedis] Pulse Rate [Left Pulse Oximeter] 85 89 93 Respiratory Rate 16 18 18 Blood Pressure Blood Pressure [Left Arm] 140/69 H 108/53 L 118/73 Blood Pressure [Right Arm] Pulse Oximetry 95 97 96 Oxygen Delivery Method Room Air Room Air Room Air 03/06/25 19:45 03/06/25 20:45 03/06/25 23:00 Temperature Pulse Rate Pulse Rate [Left Dorsalis Pedis] 81 Pulse Rate [Left Pulse Oximeter] 93 90 94 Respiratory Rate 18 18 16 Blood Pressure Blood Pressure [Left Arm] 118/73 138/59 L Blood Pressure [Right Arm] Pulse Oximetry 96 96 Oxygen Delivery Method Room Air Room Air 03/06/25 23:59 03/07/25 03:51 03/07/25 08:08 Temperature 97.4 F L 98.2 F 99 F Pulse Rate Pulse Rate [Left Dorsalis Pedis] Pulse Rate [Left Pulse Oximeter] 94 88 89 Respiratory Rate 16 18 16 Blood Pressure Blood Pressure [Left Arm] 141/51 H 126/49 L Blood Pressure [Right Arm] 120/66 Pulse Oximetry 96 93 93 Oxygen Delivery Method Room Air Room Air Room Air 03/07/25 08:08 Temperature Pulse Rate Pulse Rate [Left Dorsalis Pedis] Pulse Rate [Left Pulse Oximeter] 89 Respiratory Rate 16 Blood Pressure Blood Pressure [Left Arm] Blood Pressure [Right Arm] Pulse Oximetry Oxygen Delivery Method Assessment and Plan Assessment and plan (1) Closed fracture of left hip: Problem details: Day 1 s/p left femur fracture fixation with IMN. (03/06/25, Dr. Yañez) Status: Acute Assessment and Plan: - Mepilex dressings will remain in place x 7-10 days. Dressing is waterproof. May shower. If dressing becomes saturated, we ask that they be removed immediately. - Weight bear as tolerated with walker for assistance. - For pain management, recommend ice, elevation, Tylenol and Oxycodone PRN. ? - For DVT prophylaxis: aspirin 81 mg BID x 35 days. I also recommend ankle pumps when sedentary and frequent ambulation. - Patient will follow-up with myself in 2 weeks for a wound check. If transportation is a concern, the nursing staff at [facility] may perform this wound check and notify our clinic with any concerns. - Follow-up with Dr. Yañez in 6 weeks. - Notify Orthopedics with any questions or concerns. ([phone]) (2) Mild cognitive impairment: Problem details: -resident [facility] with OT early 2023 -monitor for perioperative delirium Status: Acute
[2025-03-07] MEDS: OMEPRAZOLE 20 MG CAPSULE DR 40 MG PO (09:44)
[2025-03-07] MEDS: ASPIRIN 81 MG TABLET EC PO ×2 (09:44→20:21)
--- NOTE | 2025-03-07 10:55 | PM.IMPN1 ---
Assessment and Plan Assessment and plan (1) Closed fracture of left hip: Problem comment: Day 1 s/p left femur fracture fixation with IMN. (03/06/25, Dr. Yañez) 03/07: Patient is doing well pending rehab placement Status: Acute (2) Cerebrovascular disease: Problem comment: -Diagnosed with acute/subacute infarcts and moderate chronic ischemic disease on MRI brain done 07/23 for mild cognitive impairment, aspirin started 08/23 but it looks like patient is not taking aspirin right now. -Patient is able to walk without a walker at her baseline and it seems there is no residual weakness. On my examination, No facial focal weakness or UE weakness, unable to compare lower extremities due to fracture. Status: Acute (3) Mild cognitive impairment: Problem comment: [facility] 2023 -monitor for perioperative delirium Status: Acute (4) Fall: Problem comment: -Patient denies losing consciousness prior during or after the fall. -patient denies headache, lightheadedness, visual changes. Status: Acute Subjective Date Seen: 03/07/25 Interval history: Patient seen and examined at bedside today she states that she is doing well. PT OT recommendations for short term rehab. Exam Narrative: Exam Narrative: Physical exam GENERAL: Comfortable, no acute distress. HEAD AND NECK: Atraumatic, normocephalic CARDIOVASCULAR: RRR. Normal S1, S2. No murmurs. RESPIRATORY: Clear to auscultation B/L. Good air entry B/L. No wheezes or rhonchi. NEUROLOGY: Alert, awake, . Normal speech. PSYCH: Normal mood, normal affect. Const: Vital Signs, click to edit/add: Vital Signs - 24 hr 03/06/25 12:00 03/06/25 15:00 03/06/25 15:35 Temperature 98.2 F 96.6 F L Pulse Rate 75 Pulse Rate [Left D orsalis Pedis] Pulse Rate [Left P ulse Oximeter] 83 80 Respiratory Rate 18 16 Blood Pressure 116/58 L Blood Pressure [Le ft Arm] 145/66 H Blood Pressure [Ri ght Arm] Pulse Oximetry 95 95 Oxygen Delivery Me thod Room Air Room Air 03/06/25 15:40 03/06/25 15:45 03/06/25 15:50 Temperature Pulse Rate 82 79 82 Pulse Rate [Left D orsalis Pedis] Pulse Rate [Left P ulse Oximeter] Respiratory Rate 16 16 16 Blood Pressure 120/56 L 128/63 129/71 Blood Pressure [Le ft Arm] Blood Pressure [Ri ght Arm] Pulse Oximetry 95 95 95 Oxygen Delivery Ak thod Room Air Room Air Room Air 03/06/25 15:55 03/06/25 16:00 03/06/25 16:05 Temperature 98.6 F Pulse Rate 80 80 82 Pulse Rate [Left D orsalis Pedis] Pulse Rate [Left P ulse Oximeter] Respiratory Rate 16 16 16 Blood Pressure 133/62 128/64 137/62 Blood Pressure [Le ft Arm] Blood Pressure [Ri ght Arm] Pulse Oximetry 95 95 94 Oxygen Delivery Ak thod Room Air Room Air Room Air 03/06/25 16:15 03/06/25 16:30 03/06/25 16:45 Temperature 96.8 F L 96.8 F L Pulse Rate Pulse Rate [Left D orsalis Pedis] 81 Pulse Rate [Left P ulse Oximeter] 80 81 78 Respiratory Rate 16 16 16 Blood Pressure Blood Pressure [Le ft Arm] 142/72 H 146/78 H 130/67 Blood Pressure [Ri ght Arm] Pulse Oximetry 96 94 95 Oxygen Delivery Ak thod Room Air Room Air Room Air 03/06/25 17:00 03/06/25 17:15 03/06/25 18:15 Temperature 96.7 F L Pulse Rate Pulse Rate [Left D orsalis Pedis] Pulse Rate [Left P ulse Oximeter] 82 87 85 Respiratory Rate 16 16 Blood Pressure Blood Pressure [Le ft Arm] 137/71 121/65 140/69 H Blood Pressure [Ri ght Arm] Pulse Oximetry 96 95 Oxygen Delivery Ak thod Room Air Room Air 03/06/25 18:45 03/06/25 19:45 03/06/25 19:45 Temperature 96.7 F L Pulse Rate Pulse Rate [Left D orsalis Pedis] Pulse Rate [Left P ulse Oximeter] 89 93 93 Respiratory Rate 18 18 18 Blood Pressure Blood Pressure [Le ft Arm] 108/53 L 118/73 118/73 Blood Pressure [Ri ght Arm] Pulse Oximetry 97 96 96 Oxygen Delivery Ak thod Room Air Room Air Room Air 03/06/25 20:45 03/06/25 23:00 03/06/25 23:59 Temperature 97.4 F L Pulse Rate Pulse Rate [Left D orsalis Pedis] 81 Pulse Rate [Left P ulse Oximeter] 90 94 94 Respiratory Rate 18 16 16 Blood Pressure Blood Pressure [Le ft Arm] 138/59 L 141/51 H Blood Pressure [Ri ght Arm] Pulse Oximetry 96 96 Oxygen Delivery Me thod Room Air Room Air 03/07/25 03:51 03/07/25 08:08 03/07/25 08:08 Temperature 98.2 F 99 F Pulse Rate Pulse Rate [Left D orsalis Pedis] Pulse Rate [Left P ulse Oximeter] 88 89 89 Respiratory Rate 18 16 16 Blood Pressure Blood Pressure [Le ft Arm] 126/49 L Blood Pressure [Ri ght Arm] 120/66 Pulse Oximetry 93 93 Oxygen Delivery Ak thod Room Air Room Air Labs Labs: Laboratory Results - last 24 hr 03/07/25 05:40 WBC 6.57 RBC 2.27 L Hgb 7.5 L* Hct 23.7 L MCV 104 H MCH 33 MCHC 32 Plt Count 144 Sodium 134 L Potassium 4.0 Chloride 102 Carbon Dioxide 28 Anion Gap 4 L BUN 17 Creatinine 0.7 Estimated Creat Clear 43.63 Estimated GFR 87 Glucose 114 Calcium 8.1 L
[2025-03-07 11:00] VITALS: BP 127/58; PULSE 80; RESP 18; TEMP 36.6; O2SAT 95
--- NOTE | 2025-03-07 11:08 | PC.SOCIAL ---
Addendum entered by MISAEL Newsome 03/07/25 11:41: Secure emailed packet of information to [facility] for evaluation for admit. cement storage worker to follow up as needed. Original Note: Discharge planning: Met with dtr Allie, who confirmed pt lives at [facility] for just over a year. Dtr is requesting short term rehab at [facility] if available at discharge prior to returning to [facility]. Pt was at [facility] previously for TCU and that was a good experience and was closer for dtr who lives in [place]. But, dtr is requesting [facility] to keep pt in [place] if possible. Contacted [facility] Brice, Eunice, who states they have bed availability and requested information be sent for evaluation for admit. cement storage worker to follow up as needed.
--- NOTE | 2025-03-07 12:52 | PC.SOCIAL ---
Addendum entered by MISAEL Newsome 03/07/25 14:03: Received confirmation from Eunice at [facility] they can accept pt to short term rehab tomorrow morning 03/08/25. transit worker to follow up as needed. Original Note: Discharge planning: Received call from Eunice at [facility] stating they have medically approved pt for admit for short term rehab pending insurance prior authorization. transit worker to follow up as needed.
[2025-03-07 15:30] VITALS: BP 148/54; PULSE 87; RESP 16; TEMP 37.2; O2SAT 95
--- NOTE | 2025-03-07 18:33 | PC.NURSE ---
End of Shift: Patient pleasant and cooperative. Patient oriented to self and . Patient is vitally stable, lungs clear, BS WNL, IV SL and intact(new IV placed). Patient denies pain, yet grimaces or says ouch with activity, only scheduled tylenol given. Patient can not cognitively understand ambulation with decreased ROM of left leg due to surgery. Patient is an EZ-stand for transfers. External catheter in use, and diaper changed once. Patient is up in chair for meals and tolerating regular diet. Left hip/leg dressings x3 C/D/I, active ice used. Patient experiences obvious sundowning in the evening, expressing her dinner is for a .
[2025-03-07 19:00] VITALS: BP 116/60; PULSE 93; RESP 16; TEMP 36.6; O2SAT 97
[2025-03-07 23:00] VITALS: BP 125/83; PULSE 79; PULSE 81; RESP 16; TEMP 36.6; O2SAT 94
[2025-03-08] VITALS (12 sets, daily range): BP systolic 130–156; BP diastolic 46–72; PULSE 76–100; RESP 16–18; TEMP 36.1–37; O2SAT 91–99
[2025-03-08] MEDS: ACETAMINOPHEN 500 MG TABLET 1000 MG PO ×2 (03:00→09:59)
--- NOTE | 2025-03-08 06:01 | PM.DS1 ---
DS: Providers Provider Date Seen: 03/08/25 Date of admission: 03/05/25 22:38 Primary care physician: Echo Burgos MD Admitting Clinician: Melony Yañez MD Consults: 03/06/25 00:07 Consult to Occupational Therapy [CONS] Routine Comment: Reason(s) for OT Consult:: Evaluate and Treat Any Restrictions?:: No Restrictions Consult to Physical Therapy [CONS] Routine Comment: Reason(s) for PT Consult:: Evaluate and Treat Any Restrictions?:: No Restrictions Consult to Physician [CONS] Routine Comment: Consulting Provider: Orthopedics, [facility] Has provider been notified: No Consult to Occasional Caregiver [CONS] Routine Comment: Reason for Consult:: Social Service Consult 03/06/25 16:17 Consult to Occupational Therapy [CONS] Routine Comment: Reason(s) for OT Consult:: Evaluate and Treat Any Restrictions?:: See Comment Comment: evaluate and treat s/p left hip IM nail Consult to Physical Therapy [CONS] Routine Comment: Reason(s) for PT Consult:: Evaluate and Treat Any Restrictions?:: Wt Bearing as Tolerated Comment: s/p left hip IM nail Consult to Occasional Caregiver [CONS] Routine Comment: Reason for Consult:: Discharge Planning Needs Attending Physician on discharge: Melony Yañez MD DS: Diagnosis Discharge Diagnosis (1) Closed fracture of left hip: Status: Acute Problem details: s/p left femur fracture fixation with IMN. (03/06/25, Dr. Yañez) 03/07: Patient is doing well pending rehab placement (2) Acute blood loss anemia: Status: Acute Problem details: s/p left femur fracture fixation with IMN. Pt feels tired d/t blood loss ordered bl transfusion 1 PRBCs 03/08 Ferrous sulfate + Vitamin C Q48hrs F/U w/ PCP as an outpt (3) Cerebrovascular disease: Status: Acute Problem details: -Diagnosed with acute/subacute infarcts and moderate chronic ischemic disease on MRI brain done 07/23 for mild cognitive impairment, aspirin started 08/23 but it looks like patient is not taking aspirin right now. -Patient is able to walk without a walker at her baseline and it seems there is no residual weakness. On my examination, No facial focal weakness or UE weakness, unable to compare lower extremities due to fracture. (4) Mild cognitive impairment: Status: Acute Problem details: -resident [facility] with OT early 2023 -monitor for perioperative delirium (5) Fall: Status: Acute Problem details: -Patient denies losing consciousness prior during or after the fall. -patient denies headache, lightheadedness, visual changes. DS: Summary Hospital Course Hospital Course: Patient with past medical history of CVA who presented with a closed fracture of the left hip, orthopedics were consulted and patient is s/p left femur fracture fixation with IMN. Pt states that she feels tired and was found to have acute blood loss anemia, bl transfusion 1 PRBCs 03/08. Ferrous sulfate + Vitamin C Q48hrs F/U w/ PCP as an outpt and needs to repeat labs including CBC within 2-3 days after discharge. Time Spent with Patient Time attestation: Total time spent providing and/or coordinating discharge services: Exam Narrative: Exam Narrative: Physical exam GENERAL: Comfortable, no acute distress. HEAD AND NECK: Atraumatic, normocephalic CARDIOVASCULAR: RRR. Normal S1, S2. RESPIRATORY: Clear to auscultation B/L. Good air entry B/L. No wheezes or rhonchi. NEUROLOGY: Alert, awake. Normal speech. Const: Vital Signs, click to edit/add: Vital Signs - 24 hr 03/07/25 08:08 03/07/25 08:08 03/07/25 11:00 Temperature 99 F 98 F Pulse Rate [Left D orsalis Pedis] Pulse Rate [Left P ulse Oximeter] 89 89 80 Respiratory Rate 16 16 18 Blood Pressure [Le ft Arm] 127/58 L Blood Pressure [Ri ght Arm] 120/66 Pulse Oximetry 93 95 Oxygen Delivery Me thod Room Air Room Air 03/07/25 15:30 03/07/25 15:30 03/07/25 19:00 Temperature 99 F 97.8 F Pulse Rate [Left D orsalis Pedis] Pulse Rate [Left P ulse Oximeter] 87 87 93 Respiratory Rate 16 16 16 Blood Pressure [Le ft Arm] Blood Pressure [Ri ght Arm] 148/54 H 116/60 Pulse Oximetry 95 97 Oxygen Delivery Me thod Room Air Room Air 03/07/25 23:00 03/07/25 23:00 03/08/25 03:00 Temperature 97.9 F 98.4 F Pulse Rate [Left D orsalis Pedis] 85 Pulse Rate [Left P ulse Oximeter] 79 81 81 Respiratory Rate 16 16 16 Blood Pressure [Le ft Arm] Blood Pressure [Ri ght Arm] 125/83 145/62 H Pulse Oximetry 94 94 Oxygen Delivery Me thod Room Air Room Air DS: Data Data Completed and Pending Completed studies during hospitalization: Procedures Excision of Duodenum, Via Natural or Artificial Opening Endoscopic, Diagnostic (09/06/23) Excision of Stomach, Pylorus, Via Natural or Artificial Opening Endoscopic, Diagnostic (09/06/23) Introduction of Remdesivir Anti-infective into Peripheral Vein, Percutaneous Approach, [employer] 5 (09/06/23) Labs on day of discharge: Labs from last 24 hours 03/07/25 05:40 WBC 6.57 RBC 2.27 L Hgb 7.5 L* Hct 23.7 L MCV 104 H MCH 33 MCHC 32 Plt Count 144 Sodium 134 L Potassium 4.0 Chloride 102 Carbon Dioxide 28 Anion Gap 4 L BUN 17 Creatinine 0.7 Estimated Creat Clear 43.63 Estimated GFR 87 Glucose 114 Calcium 8.1 L Discharge Plan Discharge Disposition: [facility] Date of Admission: 03/05/25 22:38 Attending Provider on Discharge: Hillary Bautista Consulting Providers: Cesar Yañez; Osvaldo Zhang Primary Care Provider: Echo Burgos Condition: Stable Discharge Medications: New aspirin 81 mg tablet,delayed release (DR/EC) 81 mg PO BID 35 Days Qty: 70 0RF Rx Instructions: Medication to help prevent blood clots postoperatively; take TWICE daily. acetaminophen 500 mg capsule 500 - 1,000 mg PO Q6H MDD 4000mg PRNQty: 100 0RF sennosides-docusate sodium [Senna-S] 8.6-50 mg tablet 1 - 4 tab-cap PO BID PRN (Reason: constipation) Qty: 60 0RF Rx Instructions: Hold medication if experiencing loose stools. oxycodone 5 mg tablet 2.5 - 5 mg PO Q4-6H MDD 6 PRN (Reason: pain) Qty: 30 0RF Rx Instructions: Take as needed for postop pain: 2.5mg mild pain, 5mg moderate-severe pain; wean as tolerated. ferrous sulfate 325 mg (65 mg iron) tablet 325 mg PO Q48H Qty: 60 0RF Gloria-C Crystals 200 mg PO DAILY Qty: 480 0RF Continued pantoprazole 40 mg tablet,delayed release (DR/EC) 40 mg PO QDAY Qty: 90 3RF alendronate 70 mg tablet 70 mg PO QWEEK Qty: 12 3RF cholecalciferol (vitamin D3) 50 mcg (2,000 unit) tablet 50 mcg PO QDAY Qty: 90 3RF cyanocobalamin (vitamin B-12) [Vitamin B-12] 1,000 mcg tablet 1,000 mcg PO QDAY Qty: 90 3RF calcium carbonate-vitamin D3 [Oyster Shell Calcium-Vit D3] 500 mg-5 mcg (200 unit) tablet 1 tab PO BID Qty: 60 10RF loperamide [Imodium A-D] 2 mg capsule 2 mg PO Q6H PRN (Reason: loose stool) Qty: 60 2RF Held acetaminophen 500 mg tablet 1,000 mg PO TID MDD 4,000 mg per day Hold Instructions: Resume on 04/05/25. Rx Instructions: Take 2 tablets scheduled 3 times daily and 1 to 2 tablets every 6 hours as needed. sennosides [senna] 8.6 mg tablet 8.6 mg PO QDAY PRN (Reason: constipation) Qty: 90 3RF Hold Instructions: Resume on 04/04/25. Discharge Orders: Discharge Order (Routine); Ordered 03/08/25 Ordered By: Hillary Bautista Additional Instructions: You need to follow up with primary care physician for blood loss anemia. Repeat CBC labs in 2-3 days. Start Ferrous sulfate + Vitamin C Activity Level: Activity as Tolerated, Weight Bearing as Tolerated, Use Cane and Use Walker Activity Detail: Wound: ? Remove surgical dressings after 1 week; removed dressings sooner if integrity is in question. ? No immersing wounds in water; showering okay; light scrub with your hand and body soap, rinse, dab dry ? Sutures are under the skin, will dissolve; allow surgical glue to come off naturally; do not scrub the wound or apply ointments/lotions ? Call our office with any redness that streaks, excessive drainage from the wound, or wound gapping. Ice/Elevate: ? Ice as needed for swelling and discomfort; elevate extremity frequently above the heart. Motion/Exercise: ? Weight bear as tolerated operative extremity (walker/cane for ambulation assistance as needed) ? Per PT/OT. ? Straight leg raises daily: 1-2 sets of 10 reps Pain Medications: ? Oral narcotic as prescribed. Wean as tolerated. Additional acetaminophen as needed. Blood Clot Prevention (DVT): ? Medication: 35 days 81 mg aspirin by mouth twice daily Driving: ? Do not drive while taking narcotic pain medication ? Anticipate 4-6 weeks no [address] if operative leg is driving leg Dental: ? No elective dental work for 3 months post-op. If there is an urgent/emergent dental need, contact our office for an antibiotic prescription. Smoking/Alcohol: ? Do not smoke; do no drink alcohol especially when taking postoperative oral narcotic medication Seek Care from you Primary Care Provider if you experience the following issues in the postoperative phase and beyond: ? Bacterial infections such as: pneumonia, bacterial skin infection (cellulitis), UTI, high fever, chills unrelated to the operative body part - call your primary care physician urgently for treatment in hopes to protect your health and the metal implant. Referrals: ? PT, OT per patient preference - evaluate & treat left hip IM nail (gait training, ROM, ADLs) Vaccines: ? No vaccines until 4-6 weeks postop Follow-up: - 1-2 weeks in PA-C for wound check - 6 weeks postop with orthopedic surgeon; AP pelvis, cross table lateral views left hip at that visit. If there are any acute concerns regarding your surgery, please call our orthopedic clinic ([phone]) Discharge Diet: Regular Follow Up Appointments: Echo Burgos MD [Primary Care Provider, Internal Medicine] Referral Note: Follow up within 1 week + CBC for acute blood loss anemia Forms: MyHealth Info Instructions Admit to: SNF Discharge Potential: Good Length of Stay: <30 days Can use facility standing orders?: Yes Code Status: Full Code Rehab Potential: Good Therapy: Physical Therapy and Occupational Therapy Therapy Orders: Evaluate and Treat Oxygen: No Urinary Catheter: No Orders are good >30 days: Yes Signature: Hillary Bautista
[2025-03-08 06:52] LABS: Hematocrit* 22.9 % (33.0-51.0); Mean Corpuscular HGB Conc 32 gm/dL (32-36); Mean Corpuscular Hemoglobin 34 pg (26-34); Mean Corpuscular Volume 105 fL (80-100); Red Blood Count* 2.19 m/uL (4.00-5.20); White Blood Count* 8.75 K/uL (4.50-11.00)
[2025-03-08 06:55] LABS: Hemoglobin* 7.4 gm/dL (12.0-16.0)
[2025-03-08 06:56] LABS: Slide Review Acceptable Review (Acceptable); Slide Review Reflex Yes
[2025-03-08 07:03] LABS: Chloride* 106 mmol/L (96-114); Potassium* 4.0 mmol/L (3.6-5.1); Sodium* 135 mmol/L (135-149)
[2025-03-08 07:18] LABS: Blood Urea Nitrogen* 20 mg/dL (7-30); Creatinine* 0.6 mg/dL (0.5-1.5); Est. Creatinine Clearance* 43.63; Estimated Glomerular Filt Rate 91 ml/min
[2025-03-08 07:19] LABS: Anion Gap 1 mEq/L (7-15); Calcium* 8.3 mg/dL (8.4-10.6); Carbon Dioxide* 28 mmol/L (20-32); Glucose* 120 mg/dL (60-115)
[2025-03-08] MEDS: ASPIRIN 81 MG TABLET EC PO (10:00)
[2025-03-08] MEDS: OMEPRAZOLE 20 MG CAPSULE DR 40 MG PO (10:00)
[2025-03-08] MEDS: 0.9 % SODIUM CHLORIDE 500 ML 250 ML IV (10:52)
--- NOTE | 2025-03-08 15:03 | PC.NURSE ---
Discharge-- Pleasant and cooperative patient discharged to [facility] via EMS at approximately 1400. Oriented to person only as per baseline dementia. VSS and pt is afebrile. SPO2 maintained >90% on RA. She denied any pain and was given only scheduled Tylenol. Dressings to left hip C/D/I and CMS is WNL. LS CTA. She denied nausea and ate a regular diet without difficulty. No post op BM. Education regarding constipation prevention was given to both patient and family. Pt was up to chair with EZ stand and tolerated it fairly well. Blood transfusion administered per MD order and pt tolerated it well. Nurse to nurse report was given to Maricel at [facility] and all questions were answered. SL x2 were removed with tips intact.
== END 2025-03-08 14:00 | DRG 481 ==
LOC: ED 22:27 → MEDSURG 03-06 07:44
PROVIDERS: Orthopaedic Surgery; Admitting Provider Physician Assistant; Emergency Provider Emergency Medicine; PCP Internal Medicine; Visit Provider Family Medicine
PROC: 0QS706Z Reposition Left Upper Femur with Intramedullary Internal Fixation Device, Open Approach (ICD-10-PCS; CPT 27245; principal; 2025-03-06 12:00)
DX: S72.142A Displaced intertrochanteric fracture of left femur, initial encounter for closed fracture (principal); D62 Acute posthemorrhagic anemia; I67.82 Cerebral ischemia; Z59.19 Other inadequate housing; G89.18 Other acute postprocedural pain; R41.89 Other symptoms and signs involving cognitive functions and awareness; W06.XXXA Fall from bed, initial encounter; Y92.122 Bedroom in nursing home as the place of occurrence of the external cause; I34.0 Nonrheumatic mitral (valve) insufficiency; M81.0 Age-related osteoporosis without current pathological fracture; E53.8 Deficiency of other specified B group vitamins; Z86.73 Personal history of transient ischemic attack (TIA), and cerebral infarction without residual deficits; Z96.651 Presence of right artificial knee joint
CPT/HCPCS: 01210; 36415; 36430; 64450; 71045; 73501; 73502; 73552; 76000; 76942; 80048; 80053; 85025; 85027; 85610; 86850; 86900; 86901; 86922; 87081; 93005; 94761; 97110; 97161; 97165; 97530; 97535; 99100; 99285; A9270; C1713; J0690; J2250; J2371; J2405; J2704; J2795; J3010; J3490; J7030; J7120; P9016

== ENCOUNTER 2025-03-08 14:01 | Outpatient (CLI) | payer OTHER, SELFPAY | END 2025-03-08 14:02 | disposition home or self-care (01) | LOC: AMB 03-13 18:09 | PROVIDERS: PCP Internal Medicine; Visit Provider Internal Medicine | DX: D62 Acute posthemorrhagic anemia (principal); S72.002A Fracture of unspecified part of neck of left femur, initial encounter for closed fracture; I67.9 Cerebrovascular disease, unspecified | CPT/HCPCS: A0425; A0428 ==

== ENCOUNTER 2025-03-16 20:22 | Outpatient (CLI) | payer OTHER, SELFPAY | END 2025-03-16 20:23 | disposition home or self-care (01) | LOC: AMB 03-19 19:44 | PROVIDERS: PCP Internal Medicine; Visit Provider Family Medicine | DX: R53.83 Other fatigue (principal); R60.0 Localized edema | CPT/HCPCS: A0425; A0429 ==

== ENCOUNTER 2025-03-16 20:45 | Emergency (ER) | payer OTHER, SELFPAY ==
[2025-03-16 20:47] VITALS: BP 137/80; PULSE 88; RESP 16; TEMP 36.7; O2SAT 96; BMI 28.2
--- OUTSIDE RECORDS SUMMARY | 2025-03-16 20:48 | XMS_ITS | Clinical Summary ---
Author Organization [facility] Address [address] [place] [id number] Care Team Providers Care Assistant Quality Manager Name Role Phone Echo Burgos MD Primary Care Provider [phone] Allergies No known active allergies Medications alendronate [...] Encounters Date Type Department Care Team Description 03/15/2025 Lab Requisition [facility] [phone] Myrtle Ventura NP 03/11/2025 Lab Requisition [facility] [phone] Myrtle Ventura NP from Last 3 Months Social History Tobacco [...] on patient's age to complete this topic Procedures Procedure Name Priority Date/Time Associated Diagnosis Comments RED CELL MORPHOLOGY Routine 03/12/2025 9 :09 AM SPEAKER WIRER Anemia, unspecified PLATELET ESTIMATE Routine 03/12/2025 9:0 9 AM SPEAKER WIRER Anemia, unspecified MANUAL DIFFERENTIAL Routine 03/12/2025 9 :09 AM SPEAKER WIRER Anemia, unspecified CBC WITH AUTO DIFFERENTIAL Routine 03/12/2025 9:09 AM SPEAKER WIRER Anemia, unspecified CBC WITH AUTO DIFFERENTIAL Routine 03/12/2025 9:09 AM SPEAKER WIRER Anemia, unspecified from Last 3 Months Results * (ABNORMAL) CBC WITH AUTO DIFFERENTIAL (03/12/2025 9:09 AM SPEAKER WIRER) WHITE BLOOD COUNT 8.1 4.5 - 11.0 thou/cu mm 03/12/2025 10:53 AM SPEAKER WIRER [facility] RED BLOOD COUNT 2.58(L) 4.00 - 5.20 mil/cu mm 03/12/2025 10:53 AM [facility] HEMOGLOBIN 8.3(L) 12.0 - 16.0 g/dL 03/12/2025 10:53 AM [facility] HEMATOCRIT 27.1(L) 33.0 - 51.0 % 03/12/2025 10:53 AM [facility] MCV 105(H) 80 - 100 fL 03/12/2025 10:53 AM [facility] MCH 32.2 26.0 - 34.0 pg 03/12/2025 10:53 AM [facility] MCHC 30.6(L) 32.0 - 36.0 g/dL 03/12/2025 10:53 AM [facility] RDW 13.7 11.5 - 15.5 % 03/12/2025 10:53 AM [facility] PLATELET COUNT 279 140 - 440 thou/cu mm 03/12/2025 10:53 AM [facility] MPV 10.0 6.5 - 11.0 fL 03/12/2025 10:53 AM [facility] Blood BLOOD SPECIMEN / Unknown Venipuncture / Unknown 03/12/2025 9:09 AM SPEAKER WIRER 03/12/2025 9:49 AM [facility] us Myrtle Ventura PROFESSOR OF KINESIOLOGY HEMATOLOGY Final Resul t [facility] [address] [place] [address] * (ABNORMAL) RED CELL MORPHOLOGY (03/12/2025 9:09 AM SPEAKER WIRER) ELLIPTOCYTES Few 03/12/2025 10:53 AM [facility] POLYCHROMASIA Slight 03/12/2025 10:53 AM [facility] RBC COMMENT Present(A) RBC morphology appears normal, RBC morphology within normal limits for newborns. 03/12/2025 10:53 AM [facility] Blood BLOOD SPECIMEN / Unknown Venipuncture / Unknown 03/12/2025 9:09 AM SPEAKER WIRER 03/12/2025 9:49 AM SPEAKER WIRER us Myrtle Ventura NP HEMATOLOGY Final Resul t [facility] [address] [place] [address] * PLATELET ESTIMATE (03/12/2025 9:09 AM SPEAKER WIRER) PLATELET ESTIMATE Adequate Adequate, No estimate 03/12/2025 10:53 AM [facility] Blood BLOOD SPECIMEN / Unknown Venipuncture / Unknown 03/12/2025 9:09 AM SPEAKER WIRER 03/12/2025 9:49 AM SPEAKER WIRER us Myrtle Ventura NP HEMATOLOGY Final Resul t Performing Organization Address City/[facility]/ZIP Co de Phone Number [facility] [address] [place] [address] * MANUAL DIFFERENTIAL (03/12/2025 9:09 AM SPEAKER WIRER) % NEUTROPHILS 79.0 % 03/12/2025 10:53 AM [facility] % LYMPHOCYTES 14.0 % 03/12/2025 10:53 AM [facility] % MONOCYTES 5.0 % 03/12/2025 10:53 AM [facility] % EOSINOPHILS 2.0 % 03/12/2025 10:53 AM [facility] % BASOPHILS 0.0 % 03/12/2025 10:53 AM [facility] NEUTROPHILS ABSOLUTE 6.4 1.7 - 7.0 thou/cu mm 03/12/2025 10:53 AM [facility] LYMPHOCYTES ABSOLUTE 1.1 0.9 - 2.9 thou/cu mm 03/12/2025 10:53 AM [facility] MONOCYTES ABSOLUTE 0.4 <0.9 thou/cu mm 03/12/2025 10:53 AM [facility] EOSINOPHILS ABSOLUTE 0.2 <0.5 thou/cu mm 03/12/2025 10:53 AM SPEAKER WIRER [facility] BASOPHILS ABSOLUTE 0.0 <0.3 thou/cu mm 03/12/2025 10:53 AM SPEAKER WIRER [facility] Blood BLOOD SPECIMEN / Unknown Venipuncture / Unknown 03/12/2025 9:09 AM SPEAKER WIRER 03/12/2025 9:49 AM SPEAKER WIRER us Myrtle Ventura PROFESSOR OF KINESIOLOGY HEMATOLOGY Final Resul t [facility] [address] [place] [address] from Last 3 Months Insurance [facility] [employer] Care Teams Assistant Quality Manager Relationship Specialty Start Date End Date Echo Burgos MD [address] [place] [address] PCP - General Internal Medicine 09/30/17
--- OUTSIDE RECORDS SUMMARY | 2025-03-16 20:48 | XMS_ITS | Data Portability ---
Author Organization [place] [facility] [employer] Address [address] [place] [place] [address] Assessment Encounter Date Assessment Date Assessment LastModified by Organization Details LastModified Time 06/08/2022 06/08/2022 We discussed foot care for pronation and hallux valgus b/l. Pt. wished to proceed with discussion of orthotics and Subiomed for knees before considering surgical treatment. [email or web address] Not available 07/02/2022 18:45:37 06/30/2022 06/30/2022 We discussed foot care for pronation and hallux valgus b/l. Pt. wished to proceed with discussion of Subiomed for knees before she considers knee surgery. Will follow to evaluate orthoic progress and trial subiomed next visit. Not available 08/04/2022 20:56:24 07/28/2022 07/28/2022 We discussed foot care for pronation and hallux valgus b/l. Pt. wished to proceed with orthotics for knees before considering surgical treatment. [email or web address] Not available 07/28/2022 16:30:25 Plan of Treatment [...] Address Organization Details Recorded Time Hammer toe 176589161 Active 2019 Hammer toe; Original Code: 632441625 Original Codesyste m: SNOMED CT Classi fication: Medical C onfirmati on Status: Confirmed Not Available [employer] 03/07/202 3 09:06:25 Callosity 388852848 Active 2019 Callosity ; Original Code: 345711090 Original Codesyste m: SNOMED CT Classi fication: Medical C onfirmati on Status: Confirmed Not Available [facility]ly [facility] 3 09:06:25 Acquired hallux valgus 63372842 Active 2019 Acquired hallux valgus; Original Code: 827724638 Original Codesyste m: SNOMED CT Classi fication: Medical C onfirmati on Status: Confirmed Acquire d hallux valgus; Original Code: 635535425 Original Codesyste m: SNOMED CT Classi fication: Medical C onfirmati on Status: Confirmed ; Start Date : 0 Not Available [facility] 3 09:06:25 Pain of knee region 8811231537 Active 2020 Pain of knee region; Original Code: 700517573 3 Origina l Codesyste m: SNOMED CT [...] Updated DateTime 06/08/2022 167.64 cm 25.8 kg/m2 62817.78 g Bernice Koehler [facility] 06/08/2022 [...] Codes Diagnosis Note [id number] Cody Grimaldo DPM [place] [facility] [address] [place] [address] 06/08/2022 15:06:04 06/09/2022 10:20:26 Pain in left foot [id number] 46288 M79.672 Pain in right foot 28177 96720 93453 M79.671 Hallux rhoda alphonso AND bunion 222082894 M20.11 M20.12 Hammer toe 948270140 M20 .41 Pain of ri ght knee joint 3898611738 42497 M25.561 Pain of le ft knee joint 1575819430 57085 M25.562 [id number] Cody Grimaldo DPM [facility] [address] [place] [address] 07/16/2022 10:04:03 08/05/2022 10:05:00 Pain in left foot 6486666287 51534 M79.672 Pain in right foot 77278 05091 20562 M79.671 Hallux rhoda alpohnso AND bunion 675540794 M20.11 M20.12 Hammer toe 616912412 M20 .41 Pain of ri ght knee joint 5978352175 51183 M25.561 Pain of le ft knee joint 8383972385 05173 M25.562 4198 Cody Grimaldo DPM [facility] [address] [place] [address] 07/28/2022 15:14:36 07/28/2022 16:43:29 Pain in left foot 3257185938 51533 M79.672 Pain in right foot 50062 69708 79448 M79.671 Hallux rhoda alphonso AND bunion 577093085 M20.11 M20.12 Hammer toe 866781404 M20 .41 Pain of ri ght knee joint 2018464474 56053 M25.561 Pain of le ft knee joint 1926475893 74935 M25.562 Health Concerns Section Related Observation LastModified by Organization Detai ls LastModified Time None Recorded Concern Status LastModified by Organization Details LastModified Time None Recorded Advance Directives Directive None Recorded Payers Insurance Date Sequence Insurance Name Policy Number Policy [place] Covered Member ID [place] Member ID Guarantor Name 07/28/2022 1 [employer] (POS II) [id number] Samreen Hernandez [id number] Samreen Hernandez 07/28/2022 1 MEDICARE B-[place]: [employer] [facility] Samreen Santosy [id number] Samreen Lyla David Notes Date Note [...]
--- NOTE | 2025-03-16 20:53 | ED.GENADULT ---
HPI - General Adult General Chief complaint: Post Op Complication Stated complaint: Leg Swelling Time Seen by Provider: 03/16/25 20:46 History of Present Illness HPI narrative: 03/05 pt fell, seen in ER, SX 03/06 on L hip. tonight at [address] [place] [address] facility noticed pitting edema in L foot and swelling/ warmth in L leg. per ems pt has been using ez stand but otherwise non ambulatory. bs 169 by ems. pt denies any pain during triage. 79-year-old woman presenting to the emergency department with concerns of increased swelling and warmth in the left leg. Samreen does not note that she is having any difficulty. No pain in the leg. No chest pain or shortness of breath. Ten days ago had surgery at this facility for a left-sided hip fracture. Did receive 1 unit of packed cells on 03/08 for blood loss anemia. Looks like hemoglobin got as low as 7.4. Is accompanied here by her daughter. Has been at residential facility for rehab. Underlying history of dementia as well. Has been complaining of feeling cold. No fever Related Data Home Medications ?Medication ?Instructions ?Recorded ?Confirmed acetaminophen 500 mg tablet 1,000 mg PO TID pain 03/06/25 03/06/25 Held on 03/08/25. Instructions: Resume on 04/05/25. Previous Rx's ?Medication ?Instructions ?Recorded alendronate 70 mg tablet 70 mg PO QWEEK #12 tabs 09/10/24 pantoprazole 40 mg tablet,delayed 40 mg PO QDAY #90 tabs 09/10/24 release cholecalciferol (vitamin D3) 50 50 mcg PO QDAY #90 tabs 10/19/24 mcg (2,000 unit) tablet cyanocobalamin (vitamin B-12) 1,000 mcg PO QDAY #90 tabs 10/19/24 1,000 mcg tablet (Vitamin B-12) calcium 500 mg (as 1 tab PO BID #60 tabs 11/06/24 carbonate)-vitamin D3 5 mcg (200 unit) tablet (Oyster Shell Calcium-Vitamin D3) loperamide 2 mg capsule (Imodium 2 mg PO Q6H PRN loose stool #60 12/06/24 A-D) caps sennosides 8.6 mg tablet (senna) 8.6 mg PO QDAY PRN constipation 01/03/25 Held on 03/08/25. #90 tabs Instructions: Resume on 04/04/25. acetaminophen 500 mg capsule 500 - 1,000 mg (1 - 2 x 500 mg) PO 03/06/25 Q6H PRN #100 caps aspirin 81 mg tablet,delayed 81 mg PO BID 35 days #70 tabs 03/06/25 release sennosides 8.6 mg-docusate sodium 1 - 4 tab-cap (1 - 4 x 8.6-50 mg) 03/06/25 50 mg tablet (Senna-S) PO BID PRN constipation #60 tabs ascorbic acid (vitamin C) (Gloria-C 200 mg PO DAILY #480 grams 03/08/25 crystals) ferrous sulfate 325 mg (65 mg 325 mg PO Q48H #60 tabs 03/08/25 iron) tablet oxycodone 5 mg tablet 2.5 - 5 mg (0.5 - 1 x 5 mg) PO 03/08/25 Q4-6H PRN pain #30 tabs Allergies Allergy/AdvReac Type Severity Reaction Status Date / Time No Known Drug Allergies Allergy Verified 02/18/25 11:19 Review of Systems Status of ROS: Reports: 6 or more systems reviewed and unremarkable except as noted in History and below [facility] Medical History Mitral regurgitation ?I34.0 - Nonrheumatic mitral (valve) insufficiency (ICD-10) Surgical History History of arthroplasty of right knee (02/23/24) ?Z96.651 - Presence of right artificial knee joint (ICD-10) History of surgery on lower extremity (03/06/25) ?Z98.890 - Other specified postprocedural states (ICD-10) History of blepharoplasty ?Z98.890 - Other specified postprocedural states (ICD-10) History of cataract surgery ?Z98.49 - Cataract extraction status, unspecified eye (ICD-10) History of laparoscopic cholecystectomy ?Z90.49 - Acquired absence of other specified parts of digestive tract (ICD-10) History of vaginal hysterectomy ?Z90.710 - Acquired absence of both cervix and uterus (ICD-10) Social History What is your current living situation?: I presently have a place to live Problems where you live: unable to answer Problems where you live details: N/A In the past 12 months, utilities in danger of being shut off: unable to answer In past 12 months, lack of transportation kept you from medical appts, meetings, work, or getting things needed for daily living: unable to answer In the past 12 mos, have been you worried that your food would run out before you had money to buy more?: unable to answer In the past 12 mos, the food you bought just didn't last and you didn't have money to buy more?: unable to answer Highest level of school completed/degree received: Bachelor's degree Smoking Status: Former smoker What tobacco products do you use: cigarettes Years smoked: 10 Smoking quit date/years: >15 years ago Do you use any of these nicotine containing products: None Second hand tobacco smoke exposure: No How often do you have a drink containing alcohol: never How often do you have six or more drinks on one occasion: Never AUDIT-C Alcohol total score: 0 Non-prescribed substance use: denies use Caffeine: Yes How often does anyone, including family, friends and others, physically hurt you: unable to answer How often does anyone, including family, friends and others, insult or talk down to you: unable to answer How often does anyone, including family, friends and others, threaten you with harm: unable to answer How often does anyone, including family, friends and others, scream or curse at you: unable to answer service: Yes Exam Narrative: Exam Narrative: Accompanied by appropriate attentive daughter. Very pleasant. NAD. Breathing easily. Lungs appear clear. Lower extremities right is without edema. Left with 1+ pitting edema rather diffusely. Maybe some faint erythema over the distal dorsum of the foot on the left. No significant calor. Feels equivalent to the right leg. Is well-perfused. The left hip notable for about a 1 in well-healing surgical incision most visible. Surrounding some bruising in generalized yellowing. Const: Vital Signs, click to edit/add: Vital Signs - 24 hr 03/16/25 22:41 Pulse Rate 77 Respiratory Rate 16 Blood Pressure 127/67 Pulse Oximetry 95 Oxygen Delivery Me thod Room Air Documenting provider has reviewed patient's vital signs: yes Course Vital Signs Vital signs: Initial Vital Signs Temperature 98.1 F 03/16/25 20:47 Temperature Source Temporal Artery Scan 03/16/25 20:47 Pulse Rate 88 03/16/25 20:47 Respiratory Rate 16 03/16/25 20:47 Blood Pressure 137/80 03/16/25 20:47 Blood Pressure Mean 99 03/16/25 20:47 Blood Pressure Position Sitting 03/16/25 20:47 Pulse Oximetry 96 03/16/25 20:47 Oxygen Delivery Method Room Air 03/16/25 20:47 Vital Signs Temperature 98.1 F 03/16/25 20:47 Pulse Rate 88 03/16/25 20:47 Respiratory Rate 16 03/16/25 20:47 Blood Pressure 137/80 03/16/25 20:47 Pulse Oximetry 96 03/16/25 20:47 Oxygen Delivery Method Room Air 03/16/25 20:47 Temperature 98.1 F 03/16/25 20:47 Pulse Rate 77 03/16/25 22:41 Respiratory Rate 16 03/16/25 22:41 Blood Pressure 127/67 03/16/25 22:41 Pulse Oximetry 95 03/16/25 22:41 Oxygen Delivery Method Room Air 03/16/25 22:41 Medical Decision Making MDM Narrative Medical decision making narrative: I think this is most likely mobilization of swelling from the hip distally. Cannot say for sure though that there isn't clot but certainly would be a possibility. Is relatively immobile as well. As noted did have blood loss anemia. Discharge with 81 mg of aspirin twice daily. No other anticoagulants. I do not think that the changes here represent infection as per initial concerns. Check again hemoglobin but also request ultrasound of this left like extremity. Labs show rather elevated D-dimer; not entirely unexpected. CRP is a little elevated as well. Hemoglobin has improved to 8.6. Reviewing notes from lamination builder of venous ultrasound of the left lower extremity noted to be without DVT. Radiology over-read below INDICATION: Leg swelling. TECHNIQUE: Ultrasound venous duplex left lower extremity. Compression venous exam was performed using coleman-scale, color Doppler, and spectral Doppler imaging. COMPARISON: None. FINDINGS: Deep veins: Sonographic imaging demonstrates the left common femoral, deep femoral, superficial femoral, popliteal, posterior tibial, and the contralateral right common femoral veins to be fully compressible with normal color Doppler blood flow. Superficial veins: Greater saphenous vein is fully compressible. No popliteal cyst. IMPRESSION: No sign of deep venous thrombosis in the left lower extremity. Dictated by Brandon Tim MD @ 03/16/2025 10:12:08 PM Discussed compression needs and mobility exercises. See patient discharge plan for further discussion You probably are coming up soon on your postop check. Would see when that is needing to be scheduled. Continue to do ankle pumps, wear compression of some sort and take your aspirin. Be seen for marked increase in swelling, redness, heat, pain, chest pain or shortness of breath Medical Records Medical records reviewed: Yes I reviewed the patient's medical records Lab Data Lab results reviewed: Yes I reviewed the patient's lab results Labs: Lab Results 03/16/25 Range/Units 21:15 WBC 8.27 (4.50-11.00) K/uL RBC 2.64 L (4.00-5.20) m/uL Hgb 8.6 L (12.0-16.0) gm/dL Hct 27.9 L (33.0-51.0) % MCV 106 H (80-100) fL MCH 33 (26-34) pg MCHC 31 L (32-36) gm/dL RDW Coeff of Ludy 15.1 (11.5-15.5) % Plt Count 408 (140-440) K/uL Neut % (Auto) 66.5 (42.0-72.0) % Lymph % (Auto) 18.5 L (20-44) % Kerr % (Auto) 8.8 (0.0-11.0) % Eos % (Auto) 4.2 (0.0-7.0) % Baso % (Auto) 0.7 (0.0-3.0) % Neut # (Auto) 5.49 (1.7-7.0) K/uL Lymph # (Auto) 1.50 (0.90-2.90) K/uL Kerr # (Auto) 0.70 (0.00-0.90) K/UL Eos # (Auto) 0.35 (0.00-0.50) K/uL Baso # (Auto) 0.06 (0.00-0.30) K/uL Abs Immat Gran (auto) 0.11 (0.00-0.30) K/uL Imm/Tot Granulo (auto) 1.3 % D-Dimer Quant (PE/DVT) 7.66 H (0.00-0.50) ug/ml C-Reactive Protein 4.8 H (0.5-1.0) mg/dL Discharge Plan Discharge Clinical Impression: Peripheral edema, Postop check, Anemia Patient Disposition: Home w/ Parent or Adult Condition: Improved Additional Instructions: You probably are coming up soon on your postop check. Would see when that is needing to be scheduled. Continue to do ankle pumps, wear compression of some sort and take your aspirin. Be seen for marked increase in swelling, redness, heat, pain, chest pain or shortness of breath Prescriptions: No Action pantoprazole 40 mg tablet,delayed release (DR/EC) 40 mg PO QDAY Qty: 90 3RF alendronate 70 mg tablet 70 mg PO QWEEK Qty: 12 3RF acetaminophen 500 mg tablet 1,000 mg PO TID MDD 4,000 mg per day Rx Instructions: Take 2 tablets scheduled 3 times daily and 1 to 2 tablets every 6 hours as needed. aspirin 81 mg tablet,delayed release (DR/EC) 81 mg PO BID 35 Days Qty: 70 0RF Rx Instructions: Medication to help prevent blood clots postoperatively; take TWICE daily. acetaminophen 500 mg capsule 500 - 1,000 mg PO Q6H MDD 4000mg PRNQty: 100 0RF sennosides-docusate sodium [Senna-S] 8.6-50 mg tablet 1 - 4 tab-cap PO BID PRN (Reason: constipation) Qty: 60 0RF Rx Instructions: Hold medication if experiencing loose stools. ferrous sulfate 325 mg (65 mg iron) tablet 325 mg PO Q48H Qty: 60 0RF Gloria-C Crystals 200 mg PO DAILY Qty: 480 0RF oxycodone 5 mg tablet 2.5 - 5 mg PO Q4-6H MDD 6 PRN (Reason: pain) Qty: 30 0RF Rx Instructions: Take as needed for postop pain: 2.5mg mild pain, 5mg moderate-severe pain; wean as tolerated. cholecalciferol (vitamin D3) 50 mcg (2,000 unit) tablet 50 mcg PO QDAY Qty: 90 3RF cyanocobalamin (vitamin B-12) [Vitamin B-12] 1,000 mcg tablet 1,000 mcg PO QDAY Qty: 90 3RF calcium carbonate-vitamin D3 [Oyster Shell Calcium-Vit D3] 500 mg-5 mcg (200 unit) tablet 1 tab PO BID Qty: 60 10RF loperamide [Imodium A-D] 2 mg capsule 2 mg PO Q6H PRN (Reason: loose stool) Qty: 60 2RF sennosides [senna] 8.6 mg tablet 8.6 mg PO QDAY PRN (Reason: constipation) Qty: 90 3RF Follow Up/Referrals: Echo Burgos MD [Primary Care Provider, Internal Medicine] Stand Alone Forms: [facility] Info Instructions
--- NOTE | 2025-03-16 21:05 | CRLHL7_ITS ---
For Patients: As a result of the Century Cures Act, medical imaging exams and procedure reports are released immediately into your electronic medical record. You may view this report before your referring provider. If you have questions, please contact your health care provider. INDICATION: Leg swelling. TECHNIQUE: Ultrasound venous duplex left lower extremity. Compression venous exam was performed using coleman-scale, color Doppler, and spectral Doppler imaging. COMPARISON: None. FINDINGS: Deep veins: Sonographic imaging demonstrates the left common femoral, deep femoral, superficial femoral, popliteal, posterior tibial, and the contralateral right common femoral veins to be fully compressible with normal color Doppler blood flow. Superficial veins: Greater saphenous vein is fully compressible. No popliteal cyst. IMPRESSION: No sign of deep venous thrombosis in the left lower extremity. Dictated by Brandon Tim MD @ 03/16/2025 10:12:08 PM (Electronically Signed)
[2025-03-16 21:20] LABS: Hematocrit* 27.9 % (33.0-51.0); Hemoglobin* 8.6 gm/dL (12.0-16.0); Immature Granulocytes Abs Auto 0.11 K/uL (0.00-0.30); Immature Granulocytes Pct Auto 1.3 %; Mean Corpuscular HGB Conc 31 gm/dL (32-36); Mean Corpuscular Hemoglobin 33 pg (26-34); Mean Corpuscular Volume 106 fL (80-100); RDW Coefficient of Variation % 15.1 % (11.5-15.5); Red Blood Count* 2.64 m/uL (4.00-5.20); White Blood Count* 8.27 K/uL (4.50-11.00)
[2025-03-16 21:23] LABS: Lymphocytes Absolute Auto 1.50 K/uL (0.90-2.90); Slide Review Reflex No
[2025-03-16 21:46] LABS: D Dimer Quantitative* 7.66 ug/ml (0.00-0.50)
[2025-03-16 22:41] VITALS: BP 127/67; PULSE 77; RESP 16; O2SAT 95
== END 2025-03-16 23:01 | disposition home or self-care (01) ==
PROVIDERS: Emergency Provider Family Medicine; PCP Internal Medicine
DX: R60.9 Edema, unspecified (principal); D64.9 Anemia, unspecified; Z98.890 Other specified postprocedural states
CPT/HCPCS: 36415; 85025; 85379; 86140; 93971; 99283; 99284

== ENCOUNTER 2025-03-16 22:48 | Outpatient (CLI) | payer OTHER, SELFPAY | END 2025-03-16 22:49 | disposition home or self-care (01) | LOC: AMB 03-19 19:47 | PROVIDERS: PCP Internal Medicine; Visit Provider Family Medicine | DX: R53.83 Other fatigue (principal) | CPT/HCPCS: A0425; A0428 ==

== ENCOUNTER 2025-04-18 12:24 | Outpatient (REF) | payer OTHER, SELFPAY ==
[2025-04-18 13:20] LABS: Appearance Urine Slightly Cloudy (Clear)
--- OUTSIDE RECORDS SUMMARY | 2025-04-19 00:14 | XMS_ITS | Clinical Summary ---
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 Take on empty stomach with full glass of water. Do not lie down for 1 hr.Active SUMAtriptan (IMITREX) 50 mg tablet Take 1 tablet by mouth 2 times daily if needed for Migraine. Give at minimum 2hrs apart. Max Dose: 200mg per 24hrs.Active aspirin (ECOTRIN) 81 mg enteric coated tablet Take 1 tablet by mouth once daily with a meal.Active multivitamin (MULTIPLE VITAMINS) tablet Take 1 tablet by mouth once daily.Active Encounters DateTypeDepartmentCare DbfsWqkmqcrshzi90/11/2025Lab Requisition [facility] [phone] Jarrell Nevarez MD 04/04/2025Lab Requisition [facility] [phone] Myrtle Ventura NP 03/25/2025Lab Requisition [facility] [phone] Myrtle Ventura NP 03/15/2025Lab Requisition [facility] [phone] Myrtle Ventura NP 03/11/2025Lab Requisition [facility] [phone] Myrtle Ventura NP from Last 3 Months Social History Tobacco UseTypesPacks/DayYears UsedDateSmoking Tobacco: Never Assessed CommentsUnknownSex and Gender InformationValueDate RecordedSex Assigned at Not on fileLegal YmaVqtrcw62/13/2015 7:11 PM CDTGender IdentityNot on fileSexual OrientationNot on file Last Filed Vital Signs Vital SignReadingTime TakenCommentsBlood Lrevtuvr369/7506 2:51 PM CDT Ubnuh001210/12/2016 2:51 PM CDTTemperature--Respiratory Rate--Oxygen Pdvateamwk95% 10/12/2016 2:51 PM CDTInhaled Oxygen Concentration--Aoifdf35.1 kg (163 lb 6.4 oz)10/12/2016 2:51 PM CDTHeight--Body Mass Index-- Plan of Treatment Health MaintenanceDue DateLast DoneCommentsTetanus szoxzyg5305/08/1955Depression screening for age 12+7BMI (ht and wt on same day) for age 18+1962 Pneumococcal series for age 50+ (1 of 1 - PCV)1994Zoster (shingles) series for age 50+ (1 of 2)1994DEXA/DXA scan for age 65+2009RSV vaccine for adults or (1 - 1-dose 75+ series)2019COVID-19 vaccine series (2024- season)/09/2020, 06/14/2020Influenza Vaccine (#1) 2024Hepatitis B series for 19+Aged OutNo longer eligible based on patient's age to complete this topic Procedures Procedure NamePriorityDate/TimeAssociated DiagnosisCommentsCBC WITH AUTO WWIYJJVTZRCETqjafme12/16/2025 8:22 AM [facility] Anemia, unspecified CBC WITH AUTO NSXDSOIMRTTRVqzzmmd03/16/2025 8:22 AM [facility] Anemia, unspecified CBC WITH AUTO FLGTQGGMQXVEEndmymb16/09/2025 7:33 AM [facility] Iron deficiency anemia, unspecified Hypo-osmolality and hyponatremia BASIC METABOLIC TEEWHEpmtqen55/09/2025 7:33 AM [facility] Iron deficiency anemia, unspecified Hypo-osmolality and hyponatremia CBC WITH AUTO FKLVFKIGXNVKAfmlujm38/09/2025 7:33 AM [facility] Iron deficiency anemia, unspecified Hypo-osmolality and hyponatremia CBC WITH AUTO QJBFMZQHMVJDQzndexg72/25/2025 7:05 AM [facility] Anemia, unspecified CBC WITH AUTO OTIFRBKIAUAGRbzxwqy24/25/2025 7:05 AM [facility] Anemia, unspecified RED CELL HUCFTBYOOLYaxkobd14/18/2025 9:02 AM [facility] Encounter for other specified aftercare PLATELET YYNTWDRCCaulfmo29/18/2025 9:02 AM [facility] Encounter for other specified aftercare MANUAL CYXUUAUPBQOBYsvwzsl38/18/2025 9:02 AM [facility] Encounter for other specified aftercare CBC WITH AUTO QTMCOORGEJRHMulsmwg20/18/2025 9:02 AM [facility] Encounter for other specified aftercare BASIC METABOLIC QUAMUJiicmrf33/18/2025 9:02 AM [facility] Encounter for other specified aftercare CBC WITH AUTO QSGAZTKSSKHGUjmfoyh00/18/2025 9:02 AM [facility] Encounter for other specified aftercare RED CELL JJBJNQLWWUNhkolyr58/11/2025 9:09 AM [facility] Anemia, unspecified PLATELET VNDUHFUTWxcyfut35/11/2025 9:09 AM [facility] Anemia, unspecified MANUAL IJZWWFLFLJBPOzvgdsj53/11/2025 9:09 AM [facility] Anemia, unspecified CBC WITH AUTO QBXTPAJPEHEWQhufhid63/11/2025 9:09 AM [facility] Anemia, unspecified CBC WITH AUTO QQTZHDNTTHKOBrtcwax18/11/2025 9:09 AM [facility] Anemia, unspecified from Last 3 Months Results * (ABNORMAL) CBC WITH AUTO DIFFERENTIAL (04/16/2025 8:22 AM [facility]) Only the most recent of5 resultswithin the time period is included. ComponentValueRef RangeTest MethodAnalysis TimePerformed AtPathologist Signature WHITE BLOOD COUNT8.94.5 - 11.0 thou/cu mm04/16/2025 9:17 AM [facility] LABORATORYRED BLOOD COUNT3.52(L)4.00 - 5.20 mil/cu mm04/16/2025 9:17 AM [facility] XVHIYZCTWVNOTPCSZVNJ63.3(L)12.0 - 16.0 g/dL 04/16/2025 9:17 AM [facility] JEWQCASHGYGSOXDSVOWM05.833.0 - 51.0 %04/16/2025 9:17 AM [facility] LLJROBZXJLCDI713(H)80 - 100 fL04/16/2025 9:17 AM [facility] PDENBHHKJLTGF03.126.0 - 34.0 pg 04/16/2025 9:17 AM [facility] BPLWZJLYKONVCB21.6(L)32.0 - 36.0 g/dL04/16/2025 9:17 AM [facility] SPUJXSLCVKYVV01.011.5 - 15.5 %04/16/2025 9:17 AM [facility] LABORATORYPLATELET TMNBN214470 - 440 thou/cu mm04/16/2025 9:17 AM [facility] LABORATORYMPV9.96.5 - 11.0 fL04/16/2025 9:17 AM [facility]% NEUT77.4% 04/16/2025 9:17 AM [facility]% LYMPH13.9%04/16/2025 9:17 AM [facility]% MONO5.7%04/16/2025 9:17 AM [facility]% EOS2.3%04/16/2025 9:17 AM [facility]% BASO0.7%04/16/2025 9:17 AM [facility] LABORATORYABSOLUTE NEUTROPHILS6.91.7 - 7.0 thou/cu mm04/16/2025 9:17 AM [facility] LABORATORYABSOLUTE LYMPHOCYTES1.20.9 - 2.9 thou/cu 04/16/2025 9:17 AM [facility] LABORATORYABSOLUTE MONOCYTES0.5 <0.9 thou/cu 04/16/2025 9:17 AM [facility] LABORATORYABSOLUTE EOSINOPHILS0.2<0.5 thou/cu 04/16/2025 9:17 AM [facility] LABORATORYABSOLUTE BASOPHILS0.1<0.3 thou/cu 04/16/2025 9:17 AM [facility] LABORATORYSpecimen (Source)Anatomical Location / Laterality Collection Method / VolumeCollection TimeReceived TimeBloodBLOOD SPECIMEN / UnknownVenipuncture / Rzevwxa3104/16/2025 8:22 AM [facility] [[email or web address]]04/16/2025 8:57 AM [facility] Narrative Authorizing ProviderResult TypeResult StatusStevdonato Nevarez MDHEMATOLOGYFinal ResultPerforming OrganizationAddressCity/State/ZIP CodePhone Number [facility] [address] [place] [address] * (ABNORMAL) BASIC METABOLIC PANEL (04/09/2025 7:33 AM [facility]) Only the most recent of2 resultswithin the time period is included. ComponentValueRef RangeTest MethodAnalysis TimePerformed AtPathologist Signature [id number] - 145 mmol/L106/10/2024 9:21 AM [facility] LABORATORYPOTASSIUM3.83.5 - 5.1 mmol/L106/10/2024 9:21 AM [facility] LFHVFFQIVFGGTVXOSO19817 - 107 mmol/L106/10/2024 9:21 AM [facility] LABORATORYCO2,PFVDO0559 - 29 mmol/L106/10/2024 9:21 AM [facility] LABORATORYANION GAP75 - 18106/10/2024 9:21 AM [facility] WSTQLSCLIKKZUCPFO2931 - 99 mg/dL04/09/2025 9:21 AM [facility] LABORATORYCALCIUM9.18.8 - 10.4 mg/dL04/09/2025 9:21 AM [facility] LABORATORYComment: Reference ranges for this test were updated on 03/06/2024 to reflect our healthy population more accurately. Reference range changes are not retroactively applied to results, but previous results using the same methodology can be interpreted in the context of the new reference range. HXC695 - 23 mg/dL04/09/2025 9:21 AM [facility] CREATININE0.550.50 - 0.90 mg/dL04/09/2025 9:21 AM [facility] LABORATORYBUN/CREAT RATIO42(H) - 9:21 AM [facility] LABORATORYeGFR>90>90 mL/min/1.39o53504/09/2025 9:21 AM [facility] LABORATORYComment:As of 07/14/2021, eGFR is calculated by the CKD-EPI creatinine equation without race adjustment. ??eGFR can be influenced by muscle mass, exercise, and diet. ??The reported eGFR is an estimation onlyand is only applicable if the renal function is stable.Specimen (Source)Anatomical Location / LateralityCollection Method / VolumeCollection TimeReceived TimeBloodBLOOD SPECIMEN / UnknownVenipuncture / Bzpsyxt3104/09/2025 7:33 AM CST04/09/2025 8:45 AM [facility] Narrative Authorizing ProviderResult TypeResult StatusMyrtle Ventura NPCHEMISTRYFinal ResultPerforming OrganizationAddressCity/State/ZIP CodePhone Number [facility] [address] [place] [address] * (ABNORMAL) RED CELL MORPHOLOGY (03/19/2025 9:02 AM [facility]) Only the most recent of2 resultswithin the time period is included. ComponentValueRef RangeTest MethodAnalysis TimePerformed AtPathologist Signature YKPCAQKAYANWJNyhkqt58/18/2025 10:36 AM [facility] LABORATORYRBC COMMENTPresent(A)RBC morphology appears normal, RBC morphology within normal limits for newborns.03/19/2025 10:36 AM [facility] LARGE FCPLXUFNTLbpjror81/18/2025 10:36 AM [facility] Specimen (Source)Anatomical Location / LateralityCollection Method / Volume Collection TimeReceived TimeBloodBLOOD SPECIMEN / UnknownVenipuncture / Unknown 03/19/2025 9:02 AM CST03/19/2025 10:00 AM [facility] Narrative Authorizing ProviderResult TypeResult StatusMarianne R Lorenzo NPHEMATOLOGYFinal ResultPerforming OrganizationAddressCity/State/ZIP CodePhone Number [facility] [address] [place] [address] * (ABNORMAL) PLATELET ESTIMATE (03/19/2025 9:02 AM [facility]) Only the most recent of2 resultswithin the time period is included. ComponentValueRef RangeTest MethodAnalysis TimePerformed AtPathologist Signature PLATELET ESTIMATEPlatelets are clumped and appear adequate in number(A)Adequate, No npiierix30/18/2025 10:36 AM [facility] LABORATORYSpecimen (Source)Anatomical Location / LateralityCollection Method / VolumeCollection TimeReceived TimeBloodBLOOD SPECIMEN / UnknownVenipuncture / Zyqyqle2203/19/2025 9:02 AM CST03/19/2025 10:00 AM [facility] Narrative Authorizing ProviderResult TypeResult StatusMarianne R Lorenzo NPHEMATOLOGYFinal ResultPerforming OrganizationAddressCity/State/ZIP CodePhone Number [facility] [address] [place] [address] * MANUAL DIFFERENTIAL (03/19/2025 9:02 AM [facility]) Only the most recent of2 resultswithin the time period is included. ComponentValueRef RangeTest MethodAnalysis TimePerformed AtPathologist Signature % NRKBDBOPAQD94.0%03/19/2025 10:36 AM [facility]% EGRORQKFLBQ81.0%03/19/2025 10:36 AM [facility]% MONOCYTES3.0%03/19/2025 10:36 AM [facility]% EOSINOPHILS3.0%03/19/2025 10:36 AM [facility]% BASOPHILS1.0%03/19/2025 10:36 AM [facility] NEUTROPHILS ABSOLUTE6.71.7 - 7.0 thou/cu 03/19/2025 10:36 AM [facility] LABORATORYLYMPHOCYTES ABSOLUTE0.90.9 - 2.9 thou/cu 03/19/2025 10:36 AM [facility] LABORATORYMONOCYTES ABSOLUTE0.2<0.9 thou/cu 03/19/2025 10:36 AM [facility] LABORATORYEOSINOPHILS ABSOLUTE 0.2<0.5 thou/cu 03/19/2025 10:36 AM [facility] BASOPHILS ABSOLUTE0.1<0.3 thou/cu 03/19/2025 10:36 AM [facility] LABORATORYSpecimen (Source)Anatomical Location / LateralityCollection Method / VolumeCollection TimeReceived TimeBloodBLOOD SPECIMEN / Unknown Venipuncture / Dkelfjx1303/19/2025 9:02 AM [facility] [[email or web address]]03/19/2025 10:00 AM [facility] [[email or web address]] Narrative Authorizing ProviderResult TypeResult StatusMarjuan Vnetura NPHEMATOLOGYFinal ResultPerforming OrganizationAddressCity/State/ZIP CodePhone Number [facility] [address] [place] [address] from Last 3 Months Insurance Care Teams Team MemberRelationshipSpecialtyStart DateEnd Date Echo Burgos MD [address], [place] [phone] [facility] - [facility]nal Medicine09/30/17
== END 2025-04-18 12:25 | disposition home or self-care (01) ==
LOC: NPINS 12:24
PROVIDERS: PCP Internal Medicine; Visit Provider Nurse Practitioner Gerontology
DX: R53.83 Other fatigue (principal)
CPT/HCPCS: 81001; 81003; 87086